=== PATIENT | female | born 1940 | race Caucasian/White ===

== ENCOUNTER → 2018-04-24 11:00 | Outpatient (CLI) | payer MEDICARE, SELFPAY | PROVIDERS: Visit Provider Student in an Organized Health Care Education/Training Program | DX: S42.292D Other displaced fracture of upper end of left humerus, subsequent encounter for fracture with routine healing (principal); W01.0XXD Fall on same level from slipping, tripping and stumbling without subsequent striking against object, subsequent encounter; I10 Essential (primary) hypertension | CPT/HCPCS: 99213 ==

== ENCOUNTER → 2018-06-19 10:37 | Outpatient (BNVA) | payer MEDICARE, SELFPAY | PROVIDERS: Visit Provider Student in an Organized Health Care Education/Training Program | DX: S42.202D Unspecified fracture of upper end of left humerus, subsequent encounter for fracture with routine healing (principal); X58.XXXD Exposure to other specified factors, subsequent encounter; M25.512 Pain in left shoulder | CPT/HCPCS: 20610; 99213; J1040 ==

== ENCOUNTER 2018-06-19 11:18 | Outpatient (CLI) | payer MEDICARE, SELFPAY ==
--- NOTE | 2018-06-19 11:16 | DI.RAD_ITS ---
SYMPTOM/DIAGNOSIS: LT HUMERUS FX LEFT SHOULDER: 06/19/18 Three views were obtained and show previously noted proximal humeral fracture which shows further evidence of healing and no gross interval change in alignment in comparison with examination of 03/15/18 allowing for differences in projection.
== END 2018-06-19 11:38 ==
PROVIDERS: Visit Provider Student in an Organized Health Care Education/Training Program
DX: S42.292D Other displaced fracture of upper end of left humerus, subsequent encounter for fracture with routine healing (principal)
CPT/HCPCS: 20610; 99213; 73030; J1040

== ENCOUNTER → 2018-07-31 10:30 | Outpatient (BNVA) | payer MEDICARE, SELFPAY | PROVIDERS: Visit Provider Student in an Organized Health Care Education/Training Program | DX: S42.202D Unspecified fracture of upper end of left humerus, subsequent encounter for fracture with routine healing (principal); W01.0XXD Fall on same level from slipping, tripping and stumbling without subsequent striking against object, subsequent encounter | CPT/HCPCS: 99213 ==

== ENCOUNTER 2018-09-25 14:19 | Outpatient (CLI) | payer MEDICARE, SELFPAY ==
--- NOTE | 2018-09-25 14:07 | DI.RAD_ITS ---
SYMPTOMS/DIAGNOSIS: FX F/U LEFT SHOULDER: Three views. Comparison is 06/19/18. There has been no change in alignment of the fracture deformity involving the proximal left humerus. No new fractures or dislocations are seen. Degenerative changes are seen at both the glenohumeral joint and the acromioclavicular joint. The soft tissues are unremarkable.
== END 2018-09-25 14:39 ==
PROVIDERS: Visit Provider Student in an Organized Health Care Education/Training Program
DX: S42.202D Unspecified fracture of upper end of left humerus, subsequent encounter for fracture with routine healing (principal); X58.XXXD Exposure to other specified factors, subsequent encounter; G89.29 Other chronic pain; M25.519 Pain in unspecified shoulder; M19.012 Primary osteoarthritis, left shoulder
CPT/HCPCS: 99213; 99242; 73030

== ENCOUNTER 2018-09-29 00:25 | Outpatient (CLI) | payer MEDICARE, SELFPAY ==
--- NOTE | 2018-09-29 14:27 | DI.MRI_ITS ---
SYMPTOMS/DIAGNOSIS: LEFT SHOULDER TENDINITIS, H/O LEFT PROXIMAL HUMERAL FX, CONTINUED WEAKNESS AND PAIN, S42.202D, ? ROTATOR CUFF TEAR MRI OF THE LEFT SHOULDER: Comparison is made with plain films dated September,. Proton density and fat-suppressed T2 axial and coronal and T1 and fat-suppressed T2 sagittal sequences were performed. There is deformity of the humeral head and humeral neck related to the prior fracture. Some marrow edema remains present around the fracture lines. There is a small amount of fluid in the subacromial- subdeltoid bursa and glenohumeral joint. There is some spurring at the tip of the acromion. The supraspinatus, infraspinatus, subscapularis and biceps tendons appear intact. There is a question of a posterior labral tear versus degeneration. There is atrophy of the rotator cuff muscles. IMPRESSION: Exam is mildly limited by patient body habitus and motion. There is no evidence of rotator cuff tear. An old fracture deformity is noted. There is muscular atrophy, presumably related to disuse. Degenerative changes versus posterior labral tear.
== END 2018-09-29 00:45 ==
PROVIDERS: Visit Provider Student in an Organized Health Care Education/Training Program
DX: M75.82 Other shoulder lesions, left shoulder (principal); M25.512 Pain in left shoulder; M62.512 Muscle wasting and atrophy, not elsewhere classified, left shoulder; S42.202D Unspecified fracture of upper end of left humerus, subsequent encounter for fracture with routine healing
CPT/HCPCS: 73221

== ENCOUNTER 2018-10-12 00:24 | Outpatient (CLI) | payer MEDICARE, SELFPAY ==
--- NOTE | 2018-10-12 07:30 | DI.RAD_ITS ---
SYMPTOM/DIAGNOSIS: LT SHOULDER PAIN, M25.512, UNSPECIFIC FX, S42.202D LEFT SHOULDER INJECTION: Fluoroscopy Time: 18.1 seconds Injection of contrast material into the left shoulder joint was carried out by Dr. Nair. Please see the procedure report for further information.
[2018-10-12] MEDS: Bupivacaine 0.5% Pres-Free 10 ML VIAL 6 ML IJ (09:12)
[2018-10-12] MEDS: Omnipaque 300 MG/ML 10 ML BTL IJ (09:13)
[2018-10-12] MEDS: methylPREDNISolone ACETATE 80 MG/ML VIAL IM (09:14)
--- NOTE | 2018-10-12 22:19 | W.PROCNOTE ---
Date of service: 10/12/18 Time of Service: 11:19 Procedure Note Date of procedure: 10/12/18 Procedure: Left Shoulder Injection Surgeon/Proceduralist/Physician: Antelmo Nair Procedure Diagnosis: Left rotator cuff tendinitis status post fracture Procedure Indications: Pat has had persistent pain of the LEFT shoulder. Noninvasive measures have been tried. To serve as both diagnostic and therapeutic, an injection under fluoroscopy was recommended. I had discussed the risks of the procedure and the patient elected to proceed. Procedure Description: Pat was greeted in the flouroscopy room. The correct side was identified and the consent was reviewed with the patient and signed. The patient was then placed in the supine position on the fluoroscopy table. The LEFT shoulder was then prepped with Chloraprep. The anterior injection starting point was identiifed by bony landmarks and fluoroscopy. The skin and soft tissue in the tract of the injection was anesthetized with 1% Lidocaine. A spinal needle was then inserted deep into the shoulder joint at the level of the recess between the glenoid and superior humeral head. A small amount of Omnipaque solution was injected to confirm intraarticular placement. Once confirmed, the shoulder was injected with 4cc of 0.5% Bupivicaine and 80mg of Depo-Medrol. A bandaid was placed on the injection site. The patient tolerated the procedure well and noted improvement in pre-injection pain.
== END 2018-10-12 00:44 ==
PROVIDERS: Visit Provider Student in an Organized Health Care Education/Training Program
DX: M25.512 Pain in left shoulder (principal); M75.82 Other shoulder lesions, left shoulder
CPT/HCPCS: 20610; 77002; J1040

== ENCOUNTER → 2018-10-23 10:37 | Outpatient (BNVA) | payer MEDICARE, SELFPAY | PROVIDERS: Visit Provider Student in an Organized Health Care Education/Training Program | DX: M25.512 Pain in left shoulder (principal); S42.202S Unspecified fracture of upper end of left humerus, sequela; Z98.890 Other specified postprocedural states; M75.82 Other shoulder lesions, left shoulder | CPT/HCPCS: 99212 ==

== ENCOUNTER 2018-11-03 03:08 | Outpatient (CLI) | payer MEDICARE, SELFPAY ==
[2018-11-03 12:49] LABS: ALT 24 U/L (12-78); AST 19 U/L (15-37); Albumin 3.7 g/dL (3.4-5.0); Alkaline Phosphatase 74 U/L (46-116); Anion Gap 9.8 mmol/L (3-11); BUN 16 mg/dL (7-18); Bilirubin, Total 0.4 mg/dL (0.2-1.0); CO2 29.2 mmol/L (21.0-32.0); CREATININE 0.75 mg/dL (0.55-1.02); Calcium 9.2 mg/dL (8.5-10.1); Chloride 104 mmol/L (98-107); Glucose 90 mg/dL (70-100); Potassium 4.4 mmol/L (3.5-5.1); Sodium 143 mmol/L (136-145); Total Protein 7.1 g/dL (6.4-8.2)
== END 2018-11-03 03:28 ==
DX: I10 Essential (primary) hypertension (principal); K22.70 Barrett's esophagus without dysplasia
CPT/HCPCS: 36415; 80053

== ENCOUNTER → 2018-12-04 12:51 | Outpatient (BNVA) | payer MEDICARE, SELFPAY | PROVIDERS: Visit Provider Student in an Organized Health Care Education/Training Program | DX: M75.82 Other shoulder lesions, left shoulder (principal); S42.202S Unspecified fracture of upper end of left humerus, sequela; X58.XXXS Exposure to other specified factors, sequela; I10 Essential (primary) hypertension | CPT/HCPCS: 99213 ==

== ENCOUNTER → 2019-01-12 09:23 | Outpatient (BNVA) | payer MEDICARE, SELFPAY | PROVIDERS: Visit Provider Student in an Organized Health Care Education/Training Program | DX: S42.202D Unspecified fracture of upper end of left humerus, subsequent encounter for fracture with routine healing (principal); X58.XXXD Exposure to other specified factors, subsequent encounter; M75.82 Other shoulder lesions, left shoulder; I10 Essential (primary) hypertension | CPT/HCPCS: 99212; 99213 ==

== ENCOUNTER 2019-06-11 11:10 | Emergency (ER) | payer MEDICARE, SELFPAY ==
[2019-06-11 11:18] VITALS: BP 154/94; PULSE 80; RESP 24; TEMP 36.3; O2SAT 100
--- NOTE | 2019-06-11 11:27 | DI.RAD_ITS ---
EXAM: XR HUMERUS RT INDICATION: direct shoulder trauma, pain, r/o fx. COMPARISON: LEFT HUMERUS from 01/01/2018 TECHNIQUE: 2D digital imaging was performed. FINDINGS: A comminuted fracture of the proximal humerus is demonstrated, the humerus is otherwise unremarkable. Please see the separate shoulder dictation for further information.
--- NOTE | 2019-06-11 11:27 | DI.RAD_ITS ---
EXAM: XR SHOULDER RT COMPLETE 2+V INDICATION: direct shoulder trauma, pain, r/o fx. COMPARISON: XR shoulder LT complete 2+V from 09/25/2018 TECHNIQUE: 2D digital imaging was performed. FINDINGS: A comminuted fracture of the proximal humerus is noted involving the surgical neck and greater tubero sity. There is no evidence of a dislocation. There is an apparent intra-articular hemorrhage.
--- NOTE | 2019-06-11 11:50 | ED.GENADUL_ITS ---
Discharge Plan Disposition Patient Disposition: HOME Condition: Stable Discharge Details Chief Complaint: Orthopedic Clinical Impression: Closed right humeral fracture Primary Care Provider: Kerrie Staples ED Provider: Manjinder Loaiza Home Meds and New Rx's Prescriptions: New tramadol 50 mg tablet 50 mg PO Q6H PRN (Reason: pain) 10 Days Qty: 30 RF: 0 acetaminophen [Mapap Extra Strength] 500 MG tablet 1,000 mg PO Q6H 5 Days Qty: 60 RF: 0 lidocaine [Lidoderm] 1 PATCH patch 1 patch Topical Q24H Qty: 4 RF: 0 ibuprofen [Motrin IB] 200 MG tablet 600 mg PO Q6H 5 Days Qty: 60 RF: 0 No Action calcium carbonate-vitamin D3 [Caltrate with Vitamin D3] 1 EACH tablet 1 ea PO DAILY RF: 0 CENTRUM SILVER TABLET 1 EACH tablet 1 ea PO DAILY RF: 0 cholecalciferol (vitamin D3) 1,000 UNIT tablet 1,000 unit PO DAILY RF: 0 clobetasol-emollient 15 GM cream 15 gm Topical BID Qty: 2 RF: 3 Emergen-C 1,000 MG powder effervescent in packet 1,000 mg PO DAILY RF: 0 [id number] serr [Osteo Bi-Flex (5-Loxin)] 1 EACH tablet 1 tab PO DAILY RF: 0 acetaminophen [Tylenol Extra Strength] 500 MG tablet 500 mg PO RF: 0 omeprazole 20 mg capsule,delayed release(DR/EC) 20 mg PO DAILY Qty: 90 RF: 3 pravastatin 20 mg tablet 20 mg PO DAILY Qty: 90 RF: 3 lisinopril 20 mg tablet 20 mg PO DAILY Qty: 90 RF: 3 hydrochlorothiazide 12.5 mg tablet 12.5 mg PO DAILY Qty: 90 RF: 3 Hold Instructions: Home Medication placed on hold at Doctor's office Discharge Instructions Instructions: Arm Fracture in Adults (ED) Additional Instructions: You have fractured your proximal humerus. Dr. Nair will be contacting you shortly. Please take the medications as directed, use the sling for pain control. If you notice any color changes in your hand or fingers, change in sensation, worsening pain please return immediately. Be very cautious while taking the pain medications as it could make you dizzy and imbalance. Make sure you always have assistance with you at home. If you notice any worsening of your symptoms, or any new symptoms such as vomiting, diarrhea, fever, chills, shortness of breath, chest pain, numbness, weakness, or fainting , please return immediately to the emergency department for reevaluation. Please follow up with your primary care provider as soon as possible for reassessment and reevaluation. As always, it was a pleasure participating in your medical care today. Referrals: Kerrie Staples, NESHA [Primary Care Provider] - Medical Decision Making This is a very pleasant 79-year-old female who presents today for evaluation of right shoulder pain. 30 minutes prior to arrival she fell and landed on her right shoulder. She came to the ER immediately for assessment. Physical exam demonstrates mild bruising and deformity of the right proximal humerus, her exam is otherwise neurovascularly intact including two-point discrimination, normal movement of the fingers and hands. Concern differential is highest for proximal humerus fracture. We will get x-ray, treat pain, placed in sling and reassess. 3 PM X-ray results demonstrate notable comminuted depressed proximal humerus fracture, difficult to tell whether or not it is dislocated. At this time radiology agrees with the read but also feels that it is not dislocated. Patient has specifically asked that we contact Dr. Nair for evaluation as he is one who normally cares for her multiple orthopedic issues. We did contact yossi Nair, and he does request CT scan of the right shoulder. CT scan was ordered and demonstrates that it is still in the shoulder socket, and not dislocated. Notable amount of fluid. On reassessment just before this the patient was noted to have subjective significant decrease in sensation in her hand and arm. Exam was difficult secondary to patient's pain. Dr. Nair did review the CT scan, and came and assessed the patient himself. He feels that the current symptomatology is secondary to mild pressure on the brachial plexus, but not secondary to significant nerve damage. He recommends continued sling, pain management, and close and prompt outpatient follow-up with himself. Patient was given some IV morphine, she tolerated this well. We will do tramadol for home use, recommend continued NSAIDs. We did get the patient up and ambulated her throughout the ED prior to discharge and she did well with this. She does have family at home will help take care of her. We discussed red flags which to return. I have extensively reviewed the treatment plan and discharge instructions with the patient and their family. I have addressed all patient concerns at this time. The patient and family was made aware of what symptoms to monitor for that would warrant a return to the emergency department. Discussed the plan with the patient and family, they demonstrate verbal understanding and agreement with our assessment and plan at this time. FINDINGS: A comminuted fracture of the proximal humerus is noted involving the surgical neck and greater tuberosity. There is no evidence of a dislocation. There is an apparent intra-articular hemorrhage. FINDINGS: A comminuted fracture of the proximal humerus is noted. It fractures through the surgical neck and humeral head. There is no evidence of a dislocation. A fat- fluid level is noted in the joint. HPI General Date/Time Provider Initiated Documentation: 06/11/19 11:24 . HPI Narrative: This is a 79-year-old female with a past medical history of tendinitis in the left rotator cuff, high cholesterol, previous fracture of the left humerus, who presents today for evaluation of pain in her right shoulder. The patient states that 30 minutes prior to arrival she was standing, her shoe slipped, causing her to trip and landing on her right shoulder. She did not hit her head, she had no loss of consciousness. She did have significant pain in her right shoulder immediately after that was brought to the ER for evaluation. Pain is made worse with movement and palpation. No radiation to the forearm, elbow or hand. No chest pain. No head or neck pain. She is not on any blood thinners. She recently took 1 g of Tylenol about 2 hours before arrival. Patient denies any other complaints at this time. No other modifying factors. Related Data Home Medications Medication Instructions Recorded Confirmed Centrum Silver Tablet 1 ea PO DAILY 11/23/12 06/11/19 calcium carbonate-vitamin D3 1 ea PO DAILY 11/23/12 06/11/19 [Caltrate with Vitamin D3] cholecalciferol (vitamin D3) 1,000 unit PO DAILY 05/13/16 06/11/19 clobetasol-emollient 15 gm TOPICAL BID #2 tube 10/04/16 06/11/19 Emergen-C 1,000 mg PO DAILY 11/02/17 06/11/19 [id number] serr 1 tab PO DAILY 11/02/17 06/11/19 [Osteo Bi-Flex (5-Loxin)] acetaminophen [Tylenol Extra 500 mg PO 01/09/18 01/12/19 Strength] lisinopril 20 mg PO DAILY #90 tab-cap 08/29/18 06/11/19 omeprazole 20 mg capsule,delayed 20 mg PO DAILY #90 tab-cap 08/29/18 06/11/19 release pravastatin 20 mg PO DAILY #90 tab-cap 08/29/18 06/11/19 hydrochlorothiazide 12.5 mg tablet 12.5 mg PO DAILY #90 tab-cap 09/25/18 06/11/19 acetaminophen [Mapap Extra 1,000 mg PO Q6H 5 Days #60 tab 06/11/19 Strength] ibuprofen [Motrin Ib] 600 mg PO Q6H 5 Days #60 tab 06/11/19 lidocaine [Lidoderm] 1 patch TOPICAL Q24H #4 patch 06/11/19 tramadol 50 mg PO Q6H PRN 10 Days #30 tab 06/11/19 Previous Rx's Medication Instructions Recorded lisinopril 20 mg PO DAILY #90 tab-cap 08/29/18 omeprazole 20 mg capsule,delayed 20 mg PO DAILY #90 tab-cap 08/29/18 release pravastatin 20 mg PO DAILY #90 tab-cap 08/29/18 hydrochlorothiazide 12.5 mg tablet 12.5 mg PO DAILY #90 tab-cap 09/25/18 acetaminophen [Mapap Extra 1,000 mg PO Q6H 5 Days #60 tab 06/11/19 Strength] ibuprofen [Motrin Ib] 600 mg PO Q6H 5 Days #60 tab 06/11/19 lidocaine [Lidoderm] 1 patch TOPICAL Q24H #4 patch 06/11/19 tramadol 50 mg PO Q6H PRN 10 Days #30 tab 06/11/19 Allergies Allergy/AdvReac Type Severity Reaction Status Date / Time oxycodone HCl [From Percocet] AdvReac Intermediate GI, Verified 06/11/19 11:22 Headache, Nausea codeine AdvReac Mild Upset Verified 06/11/19 11:22 Stomach General Stated Complaint: Orthopedic REBA: 3 Review of Systems Review of Systems ROS Unobtainable: All systems reviewed & are unremarkable except as noted in HPI and below PFSH Medical History (Updated 11/10/18 @ 14:17 by Kerrie Staples NP) At risk for inadequate pain control (Chronic 01/11/18) Gordon's esophagus (Chronic) NEG H. PYLORI egd 2016 Bilateral low back pain without sciatica (Chronic 05/13/16) Essential hypertension (Chronic 10/02/13) Family history of colon cancer (Chronic 02/05/10) father Fracture of proximal end of left humerus (Chronic) Hiatal hernia (Chronic) Hyperlipidemia (Chronic) Intestinal metaplasia of gastric mucosa (Chronic 02/14/14) EGD 02/05/14 FU 3 YEARS Lichen planus (Chronic) on rt [place] Osteopenia (Chronic) Right lower quadrant pain (Chronic 05/27/16) Rosacea (Chronic) Skin irritation (Chronic 01/18/18) Skin tag (Chronic 05/27/16) Spondylosis of lumbar region without myelopathy or radiculopathy (Chronic) Tendinitis of left rotator cuff (Chronic) Traumatic closed displaced fracture of proximal end of left humerus with routine healing (Chronic 01/03/18) 01/03/18 Varicose veins of lower extremity (Chronic) Vitiligo (Chronic) Surgical History Appendectomy no date given BIOPSY (02/05/14) DISTAL ESOPHAGUS BX Cholecystectomy (~10/2001) Colonoscopy - MAC (~01/2014) EGD - IV Sedation (02/15/17) Endoscopy 02/15/17 [facility] Finger Surgery CYST REMOVAL;DR. YEPEZ; 03/17/17 Ligation of fallopian tube Medial Branch Block 10/12/16; PAIN CLINIC 10/12/16 Social History (Updated 11/15/18 @ 10:08 by Juan Jose Mcintyre) Smoking/Tobacco Use Status: Never Alcohol Intake: never Drug use: Never Substance use type: does not use Caregiver/Support person: No Household members: none Housing: apartment Pets and animals: No Sexually active: No Do you think of yourself as: straight/heterosexual Current gender identity: female What is your relationship status?: How often do you talk on the phone with friends or family?: three or more times per week How often do you get together with friends or relatives?: three or more times per week How often do you attend adventist or worship services?: decline to answer Do you belong to any clubs or organized social groups?: no Panel score (0-1 are the most socially isolated patients): 1 What type of physical activity do you participate in: other Duration: 15-30 minutes/day Frequency: 3-4 times per week Chloe/Yazidi: Mormonism Special chloe needs: No Do you feel safe in your relationship?: Yes Exam Narrative Exam Narrative: 1.Const: Well-nourished, Well-developed, appearing stated age 2.Eyes: PERRL, no conjunctival injection, and symmetrical lids. 3.ENT: Atraumatic external nose and ears. Moist MM. Neck: Symmetric, trachea midline, No thyromegaly. There is no evidence of raccoon eyes, strauss sign, CSF rhinorrhea, mastoid tenderness, cranial crepitus, hemotympanum, exophthalmos, or hyphema. Patient demonstrates intact dentition with no signs of tooth avulsion or fracture, no signs of jaw deformity, no evidence of a LeFort's fracture, with an intact palate, nose and orbital region. There is no evidence of a nasal septal hematoma. No proptosis. Jaw closes symmetrically. Airway is clear. 4.CVS: +S1/S2, No murmurs or gallops. Peripheral pulses 2+ and equal in all extremities. Brisk capillary refill in all extremities. 5.RESP: Unlabored respiratory effort. Clear to auscultation bilaterally. No wheezes rales or rhonchi 6.GI: Soft, Nontender/Nondistended, No hepatosplenomegaly. No guarding or rebound. 7.MSK: Normocephalic, no midline cervical spine tenderness. No tenderness over the right clavicle. Mild to moderate tenderness over the proximal humerus and right shoulder. No pain in the elbow or forearm. Good supervising nurse strength bilaterally, normal capillary refill throughout, +2 radial pulses bilaterally. Normal neurovascular exam. Significant and severe pain with any movement of the right shoulder, mild deformity of the proximal humerus. 8.Skin: Warm, Dry. No rashes or lesions. 9.Neuro: assistant health educator II-XII grossly intact. Sensation grossly intact, no focal neurologic deficits. 10.Psych: (AAO) x3. Appropriate mood and affect Course Vital Signs Vital signs: Vital Signs Temperature 36.3 C L 06/11/19 11:18 Pulse 80 06/11/19 11:18 Respiratory Rate 06/11/19 11:18 Blood Pressure 154/94 H 06/11/19 11:18 Pulse Oximetry 100 06/11/19 11:18 Temperature 36.3 C L 06/11/19 11:18 Temperature Source Skin 06/11/19 11:18 Pulse 80 06/11/19 11:18 Respiratory Rate 06/11/19 11:18 Blood Pressure 154/94 H 06/11/19 11:18 Blood Pressure Position Sitting 06/11/19 11:18 Pulse Oximetry 100 06/11/19 11:18 Oxygen Delivery Method Room Air 06/11/19 11:18 Oxygen Flow Rate 0 06/11/19 11:18
[2019-06-11] MEDS: Ketorolac 15 MG/ML VIAL IM (12:01)
[2019-06-11 12:42] LABS: Abs Immature Grans 0.01 k/cumm (0.0-0.09); Absolute Basophil Count 0.03 k/cumm (0.0-0.2); Absolute Eosinophil Count 0.06 k/cumm (0.0-0.7); Absolute Lymphocyte Count 1.44 k/cumm (1.2-3.4); Absolute Neutrophil Count 5.23 k/cumm (1.2-6.7); Basophils % 0.4; Eosinophils % 0.8; HCT 41.8 % (36.0-46.0); HGB 14.2 g/dL (12.0-15.5); Immature Grans % 0.1; Lymphocytes % 19.5; Mean Corpuscular Hemoglobin 29.2 pg (27.0-33.0); Mean Platelet Volume 10.1 fL (8.0-11.0); Monocytes % 8.1; Neutrophils % 71.1; Platelet Count 258 x1000/uL (130-400); RBC 4.86 m/cumm (4.00-5.20); RBC Distribution Width 14.5 % (11.7-14.6); White Blood Cell Count 7.37 k/cumm (4.4-10.8)
--- NOTE | 2019-06-11 12:44 | DI.CT_ITS ---
EXAM: CT UPPER EXTREMITY RT WO CLINICAL HISTORY: known fracture, ortho request. COMPARISON: No exams were available for comparison FINDINGS: A comminuted fracture of the proximal humerus is noted. It fractures through the surgical neck and hu meral head. There is no evidence of a dislocation. A fat-fluid level is noted in the joint.
[2019-06-11 12:48] LABS: Anion Gap 12.7 mmol/L (3-11); BUN 28 mg/dL (7-18); CO2 23.3 mmol/L (21.0-32.0); CREATININE 0.85 mg/dL (0.55-1.02); Calcium 9.3 mg/dL (8.5-10.1); Chloride 100 mmol/L (98-107); Glucose 134 mg/dL (70-100); Potassium 3.6 mmol/L (3.5-5.1); Sodium 136 mmol/L (136-145)
[2019-06-11 12:59] LABS: PTT Activated 24.1 sec (21.0-31.4); Prothrombin Time 10.4 sec (9.3-11.0)
[2019-06-11] MEDS: HYDROmorphone 2 MG/ML VIAL 1 MG IVP ×2 (13:39→14:18)
[2019-06-11] MEDS: Ondansetron 4 MG/2 ML VIAL IVP (13:45)
[2019-06-11] MEDS: Normal Saline Flush 10 ML SYR (14:20)
--- NOTE | 2019-06-11 14:52 | NUR.NOTE ---
ambulated pt through dept pt nervous but did fine states has sister who can come stay with her opal MCNALLY aware Nursing Note:
[2019-06-11] MEDS: Lidocaine 5% Patch 1 PATCH TP (15:33)
[2019-06-11 15:52] VITALS: BP 154/94; PULSE 80; RESP 24; TEMP 36.3; O2SAT 100
== END 2019-06-11 15:46 | disposition home or self-care (01) ==
PROVIDERS: Emergency Provider Student in an Organized Health Care Education/Training Program
DX: S42.294A Other nondisplaced fracture of upper end of right humerus, initial encounter for closed fracture (principal); W01.0XXA Fall on same level from slipping, tripping and stumbling without subsequent striking against object, initial encounter; I10 Essential (primary) hypertension
CPT/HCPCS: 80048; 86850; 86900; 86901; 96374; 96375; 99284; 73030; 73060; 73200; 85025; 85610; 85730; J1885; J2405; L3650

== ENCOUNTER 2019-06-20 10:34 | Outpatient (CLI) | payer MEDICARE, SELFPAY ==
[2019-06-20 11:09] LABS: Abs Immature Grans 0.01 k/cumm (0.0-0.09); Absolute Basophil Count 0.04 k/cumm (0.0-0.2); Absolute Eosinophil Count 0.09 k/cumm (0.0-0.7); Absolute Lymphocyte Count 1.32 k/cumm (1.2-3.4); Absolute Monocyte Count 0.57 k/cumm (0.11-0.7); Absolute Neutrophil Count 4.42 k/cumm (1.2-6.7); Basophils % 0.6; Eosinophils % 1.4; HCT 35.3 % (36.0-46.0); HGB 11.7 g/dL (12.0-15.5); Immature Grans % 0.2; Lymphocytes % 20.5; Mean Corp. HGB Concentration 33.1 g/dL (32.0-36.0); Mean Corpuscular Hemoglobin 29.3 pg (27.0-33.0); Mean Corpuscular Volume 88.5 fL (80-95); Mean Platelet Volume 9.4 fL (8.0-11.0); Monocytes % 8.8; Neutrophils % 68.5; Platelet Count 268 x1000/uL (130-400); RBC 3.99 m/cumm (4.00-5.20); RBC Distribution Width 13.9 % (11.7-14.6); White Blood Cell Count 6.45 k/cumm (4.4-10.8)
== END 2019-06-20 10:54 ==
PROVIDERS: Visit Provider Student in an Organized Health Care Education/Training Program
DX: S42.291A Other displaced fracture of upper end of right humerus, initial encounter for closed fracture (principal); I10 Essential (primary) hypertension; E78.5 Hyperlipidemia, unspecified; E66.9 Obesity, unspecified; Z01.818 Encounter for other preprocedural examination; Z01.812 Encounter for preprocedural laboratory examination
CPT/HCPCS: 36415; 86850; 86900; 86901; 99215; 73030; 85025

== ENCOUNTER 2019-06-20 10:50 | Outpatient (CLI) | payer MEDICARE, SELFPAY ==
--- NOTE | 2019-06-20 09:52 | DI.RAD_ITS ---
EXAM: XR SHOULDER RT COMPLETE 2+V INDICATION: fx R humerus. COMPARISON: XR SHOULDER RT COMPLETE 2+V from 06/11/2019 TECHNIQUE: 2D digital imaging was performed. FINDINGS: There is again seen a comminuted fracture involving the proximal right humerus. There has been no ch enoch in alignment of the fracture compared to the prior examination. The alignment of the humeral he ad with the glenoid appears stable. No new fracture or dislocation is present.
== END 2019-06-20 11:10 ==
PROVIDERS: Visit Provider Student in an Organized Health Care Education/Training Program
DX: S42.291A Other displaced fracture of upper end of right humerus, initial encounter for closed fracture (principal); W01.0XXA Fall on same level from slipping, tripping and stumbling without subsequent striking against object, initial encounter
CPT/HCPCS: 99204; 99215; 73030

== ENCOUNTER 2019-06-21 09:09 | Inpatient (IN) | payer MEDICARE, SELFPAY ==
[2019-06-21] VITALS (9 sets, daily range): BP systolic 117–131; BP diastolic 57–73; PULSE 66–92; RESP 15–18; TEMP 35.8–37.2; O2SAT 89–97
[2019-06-21] MEDS: Lactated Ringers 1,000 ML 100 ML IV ×3 (10:15→22:45)
[2019-06-21] MEDS: Bupivacaine 0.5% Pres-Free 30 ML VIAL ×2 (12:30→16:05)
[2019-06-21] MEDS: Bupivacaine LIPOSOME/PF 133 MG/10 ML VIAL IJ (12:30)
[2019-06-21] MEDS: ceFAZolin 3,000 MG in Normal Saline 100 ML 200 MG IVPB (13:20)
--- NOTE | 2019-06-21 17:05 | W.PM.OP ---
Date of service: 06/21/19 Time of Service: 17:05 Operative Note Operative Note DATE OF PROCEDURE: 06/21/19 PRE-OP DIAGNOSIS: 1. Right shoulder complex proximal humerus fracture 4 parts with head split 2. Incarcerated right long head of the biceps tendon POST-OP DIAGNOSIS: same PROCEDURE: 1. Right shoulder reverse total shoulder arthroplasty 2. Open biceps tenodesis 3. Bone grafting autograft SURGEON: Peter Landeros ASSISTING SURGEON: Antelmo Nair HOSPICE NURSE PRACTITIONER: Mikala Randolph ANESTHESIA: GETA and regional ESTIMATED BLOOD LOSS: 150 COMPLICATIONS: None Patient was transported to: PACU Patient's condition: stable Implants: Arthrex universal glenoid central screw 15 mm Arthrex universal glenoid baseplate size small Arthrex universal glenoid peripheral locking screw 24 mm x 2 Arthrex universe reverse glenosphere size 36 +4 lateralized Arthrex universe reverse suture cup size 36 neutral Arthrex universe reverse humeral stem 135 degrees size 6 Arthrex universe reverse spacer size 36 +9 mm Arthrex universe reverse humeral insert size small +3 mm Indications: See history and physical done in office for details Findings: Severely comminuted and displaced right proximal humerus fracture with both the lesser and greater tuberosities split off of a large articular surface humeral head piece that was inferior subluxated towards the axilla. Residual humeral shaft with nondisplaced fracture line running a few centimeters distal to the calcar. Incarcerated long head of the biceps tendon in and around these fracture fragments with tearing and inflammation. Largely intact subscapularis and infraspinatus tendons to their respective tuberosities with supraspinatus partial tearing no more than 50% of the footprint of the greater tuberosity. Procedure Description: The patient was taken to the operating room and placed upon the operating room table. The correct patient, side of the procedure, and procedure were all verified prior to induction of general anesthesia. The patient was positioned in the beachchair position with all bony prominences well-padded. 3 g of preoperative cefazolin 1 g of TXA were administered. The patient's right upper extremity and shoulder were prepped and draped in the usual sterile fashion for shoulder arthroplasty. The standard deltopectoral approach was taken down to the proximal humerus fracture site. Care was taken to preserve and mobilize the cephalic vein laterally. Careful hemostasis was achieved inferiorly. There was significant comminution and displacement of the fracture fragments. We identified anatomy based on the long head of the biceps tendon which was freed up from between the lesser tuberosity and head split fracture fragments. The upper 0.5 cm of the pectoralis major tendon was released and an in situ open long head of the biceps tenodesis was performed using #2 FiberWire. The remainder of the long head of the biceps tendon was used to identify the rotator interval and then amputated. The lesser tuberosity was mobilized using a Wagner and the subscapularis tendon tagged with #2 FiberWire. The greater tuberosity was similarly mobilized and the supraspinatus infraspinatus tagged with #2 FiberWire. At this point traction, a Wagner, and pointed clamps were used to mobilize and deliver the large humeral head articular surface fracture fragment. This was brought to the back table for later use as bone grafting. A Rongeour was used to clean up the humeral shaft fracture line and identify stable bone. Blunt dissection was used to free adhesions between the deltoid and the superior rotator cuff. Anterior and posterior glenoid retractors were then placed to gain exposure of the glenoid, which was facilitated by the significantly missing proximal humeral bone. A Wagner was used to remove cartilage from the glenoid. Bovie cautery was used to remove labral remnant circumferentially around the glenoid except for near the 6 o'clock position where the labrum was carefully bluntly dissected inferiorly off the glenoid. Blunt digital dissection along the anterior scapular neck was used to identify the correct trajectory for central guidewire. The center?center location was identified in the glenoid and then the guidewire was moved slightly inferiorly and with an inferior tilt and directed down the scapular neck and slightly anterior for bicortical fixation. This guidewire was palpated as it exited the anterior scapula and measured to be just over 15 mm. The guidewire location was inspected and found to be appropriate. Next a sequence of reamers was used to decorticate, medialize, and prepare for the baseplate. At first the baseplate did not sit all the way flush superiorly so it was removed and we repeated the reaming sequence to remove another millimeter or so of bone. The baseplate then set flush on glenoid bone with proper position inferiorly and inferior tilt. The central compression screw was placed in the baseplate was found to have solid fixation. Next the glenosphere was impacted to the baseplate and tested and found to be stable. Attention was then turned to preparing the proximal humerus. We started with a size 5 broach and set the version at about 30 degrees. We carefully broached up to a size 6 stem which was found to sit high so he returned to a size 5 broach and then again to a 6 and it sat in a good position relative to the remaining medial calcar. We assembled the trial components, reduced the shoulder, and tested stability. Ball Ground stability was found with a +12 mm total construct. This demonstrated excellent stability with good tension on the conjoined tendon and deltoid. The trial components were removed from the proximal humerus. To drill tunnels were placed in the bicipital groove and loaded with 2 sets of #2 FiberWire. Final size 6 humeral stem was impacted and then removed as the previously identified nondisplaced calcar fracture line displaced about 1 mm. We then placed fiber tape cerclage about the proximal humerus shaft including the medial calcar fracture line and appropriately tensioned to prevent fracture propagation. Humeral stem was then impacted into the proximal humerus with good fit, height and rotational stability. We then trialed building again up to +12 and found to have excellent stability. The final spacer and humeral insert with an assembled to the humeral stem. The shoulder was reduced and stability was tested one last time and found to be excellent Chlorhexidine lavage was used to copiously irrigate all deep and superficial tissue layers as well as the implanted components. 1 g of vancomycin powder was distributed about the deep wound. The previously tagged lesser and greater tuberosities were reduced to their respective positions about the humeral stem and humeral shaft. Residual gaps around the implant and between the tuberosities was bone grafted using autograft cancellus bone obtained from the removed humeral head. All bony defects were nicely filled. Using a series of Sarabjit-Jaskaran stitches they were repaired back to the shaft and to each other covering the implant. After complete tuberosity and rotator cuff repair the arm was taken through range of motion and the entire cuff moved as a unit with no displacement. The wound was copiously irrigated. The deltopectoral interval was loosely approximated using 0 Vicryl. Subcutaneous tissue was closed using 2-0 Monocryl in a buried interrupted fashion. The skin was closed using 3-0 Monocryl in a buried subcuticular fashion. Skin glue was applied to the incision. A Mepilex bandage was placed over the wound. The patient's extremity was immobilized in a sling. The patient awoke from anesthesia without complication and was taken to the recovery room in stable condition.
[2019-06-21] MEDS: fentaNYL 100 MCG/2 ML VIAL IVP (17:30)
--- NOTE | 2019-06-21 17:32 | DI.RAD_ITS ---
EXAM: XR SHOULDER RT COMPLETE 2+V INDICATION: Postop. COMPARISON: XR SHOULDER RT COMPLETE 2+V from 06/20/2019 TECHNIQUE: 2D digital imaging was performed. FINDINGS: Three views were obtained. There is a reverse shoulder prosthesis in position. The components appea r well seated. There does appear to be a transverse fracture of the proximal most portion of the hum erus. Appropriate follow-up films requested IMPRESSION:
--- NOTE | 2019-06-21 18:10 | W.PM.PROGNOT ---
Date of Service Date of service: 06/21/19 Time of Service: 18:10 Assessment and Plan Assessment and plan (1) Closed fracture of proximal end of right humerus: Status: Acute Assessment and plan: 79-year-old female postop day #0 status post right shoulder reverse total shoulder arthroplasty for complex proximal humerus fracture, doing well -Nonweightbearing right upper extremity. Sling for comfort or may rest on pillows at side. No active right shoulder range of motion. -Multimodal pain control -Physical therapy for gentle passive range of motion from 0 to 30 degrees of external rotation and 0 to 90 degrees of forward flexion -81 mg aspirin daily for DVT prophylaxis All questions answered Agree and understand treatment plan Will call if any changes or concerns Qualifiers: Encounter type: initial encounter Fracture morphology: other fracture Fracture alignment: displaced Qualified Code(s): S42.291A - Other displaced fracture of upper end of right humerus, initial encounter for closed fracture Subjective Subjective Interval history since last seen: Resting comfortably no complaints in recovery room Exam Narrative Exam Narrative: Right shoulder dressing clean dry intact. 2+ radial pulse. Sensation and motor returning throughout right upper extremity. All compartments soft. Objective Objective Clinical Data: Vital Signs Temperature 36.8 C 06/21/19 17:35 Pulse 78 06/21/19 17:35 Pulse Rhythm Regular 06/21/19 09:32 Respiratory Rate 16 06/21/19 17:35 Respiratory Effort Non-Labored 06/21/19 09:32 Respiratory Depth Normal 06/21/19 09:32 Respiratory Pattern Normal 06/21/19 09:32 Blood Pressure 129/63 06/21/19 17:35 Pulse Oximetry 95 06/21/19 17:35 Respiratory End-tidal CO2 30 06/21/19 17:35 Oxygen Delivery Method Nasal Cannula 06/21/19 17:35 Oxygen Flow Rate 2 06/21/19 17:35 Pain Level 5 06/21/19 17:35 Intake & Output 06/20/19 06/21/19 06/21/19 23:59 11:59 23:59 Intake Total 1230 / 1230 Output Total 150 / 150 Balance 1080 / 1080 Weight 81 kg Intake: IV 1210 / 1210 Oral 20 / 20 Output: Estimated Blood Loss 150 / 150 Other: Emesis Description None
[2019-06-21] MEDS: ceFAZolin 1 GM/50 ML BAG IVPB (19:57)
[2019-06-21] MEDS: Normal Saline Flush 10 ML SYR IV (19:57)
[2019-06-21] MEDS: Celecoxib 100 MG CAP PO (19:58)
[2019-06-21] MEDS: Pravastatin 20 MG TAB PO (19:58)
[2019-06-21] MEDS: Acetaminophen 500 MG TAB 1000 MG PO (19:58)
[2019-06-22] MEDS: ceFAZolin 1 GM/50 ML BAG IVPB ×2 (04:15→12:32)
[2019-06-22 05:30] VITALS: BP 122/66; PULSE 86; RESP 18; TEMP 37.1; O2SAT 96
[2019-06-22 07:15] VITALS: BP 122/77; PULSE 81; RESP 18; TEMP 36.9; O2SAT 91
[2019-06-22] MEDS: Cholecalciferol (Vitamin D3) 1,000 UNIT TAB 1000 UNITS PO (07:58)
[2019-06-22] MEDS: Omeprazole 20 MG CAPCR PO (07:58)
[2019-06-22] MEDS: Multivitamin TAB 1 TAB PO (07:58)
[2019-06-22] MEDS: Celecoxib 100 MG CAP PO (07:58)
[2019-06-22] MEDS: hydroCHLOROthiazide 12.5 MG TAB PO (07:58)
[2019-06-22] MEDS: Lisinopril 20 MG TAB PO (07:58)
[2019-06-22] MEDS: Calcium 600mg/Vit D 200U TAB 1 TAB PO (07:58)
[2019-06-22] MEDS: Acetaminophen 500 MG TAB 1000 MG PO ×2 (07:59→14:28)
--- NOTE | 2019-06-22 10:43 | W.PM.DS.N ---
DS: Diagnosis Discharge Diagnosis (1) Closed fracture of proximal end of right humerus: Status: Acute Discharge Plan Disposition Patient Disposition: HOME Condition: Stable Discharge Details Reason For Visit: (R) PROXIMAL HUMERUS FX Admit Date/Time: 06/21/19 09:09 Admit Provider: Peter Landeros Attending Provider: Peter Landeros Primary Care Provider: Kerrie Staples Hospital Course Hospital Course: Uncomplicated Home Meds and New Rx's Prescriptions: New tramadol 50 mg Tablet 50 mg PO Q8H PRN PRN (Reason: pain, severe) Qty: 22 RF: 0 naproxen 250 mg tablet 250 mg PO BID PRN (Reason: pain) Qty: 60 RF: 0 aspirin 81 mg tablet,delayed release (DR/EC) 81 mg PO DAILY Qty: 30 RF: 0 ondansetron 4 mg tablet,disintegrating 4 mg PO Q6H PRN (Reason: nausea and vomiting) Qty: 5 RF: 0 Continued calcium carbonate-vitamin D3 [Caltrate with Vitamin D3] 1 EACH tablet 1 ea PO DAILY RF: 0 CENTRUM SILVER TABLET 1 EACH tablet 1 ea PO DAILY RF: 0 cholecalciferol (vitamin D3) 1,000 UNIT tablet 1,000 unit PO DAILY RF: 0 clobetasol-emollient 15 GM cream 15 gm Topical BID Qty: 2 RF: 3 Emergen-C 1,000 MG powder effervescent in packet 1,000 mg PO DAILY RF: 0 [id number] [Osteo Bi-Flex (5-Loxin)] 1 EACH tablet 1 tab PO DAILY RF: 0 omeprazole 20 mg capsule,delayed release(DR/EC) 20 mg PO DAILY Qty: 90 RF: 3 pravastatin 20 mg tablet 20 mg PO DAILY Qty: 90 RF: 3 lisinopril 20 mg tablet 20 mg PO DAILY Qty: 90 RF: 3 hydrochlorothiazide 12.5 mg tablet 12.5 mg PO DAILY Qty: 90 RF: 3 Hold Instructions: Home Medication placed on hold at Doctor's office lidocaine [Lidoderm] 1 PATCH patch 1 patch Topical Q24H Qty: 4 RF: 0 acetaminophen [Tylenol Extra Strength] 500 mg Tablet 1,000 mg PO Q4H PRNRF: 0 ibuprofen 600 mg Tablet 600 mg PO TID RF: 0 Discharge Instructions Additional Instructions: Keep bandage clean and dry until follow-up. Do not shower or get wet. Use sling or pillows to elevate arm at side. Sling may be removed at home as long as arm stays safe near side of body. No active shoulder motion. Do not reach or lift. Encourage daily range of motion to the elbow, wrist, hand and all fingers. Follow-up with Dr. Landeros in 10 days. Plan to start physical therapy after that visit. Stand Alone Forms: DSU Post op Instructions, Nursing Discharge Form Referrals: Peter Landeros MD [ [facility] STAFF PHYSICIAN] - 07/04/19 1:00 pm Activity:: Nonweightbearing right upper extremity Equipment/Supplies:: Sling Diet:: As Tolerated Discharge Orders Discharge Orders: Discharge Order (Routine); Ordered 06/22/19 Ordered By: Peter Landeros DS: Summary Status at Discharge Functional status at discharge: independent ambulation Overall status at discharge: other (Status post right shoulder reverse arthroplasty replacement for fracture) Mental Status: mental status grossly normal Speech and Movement: speech and movement normal Mood: congruent mood Affect: normal affect Exam Narrative Exam Narrative: Patient comfortable awake and alert. Right shoulder dressing clean dry intact. 2+ radial pulse. Sensation and motor returning throughout right upper extremity. All compartments soft. Psych Mental Status: mental status grossly normal Speech and Movement: speech and movement normal Mood: congruent mood Affect: normal affect DS: Data Vitals/I&O Vitals and I&O: Vital Signs Temperature 36.9 C 06/22/19 07:15 Temperature Source Tympanic 06/22/19 07:15 Pulse 81 06/22/19 07:15 Pulse Rhythm Regular 06/22/19 05:30 Respiratory Rate 18 06/22/19 07:15 Respiratory Effort 06/22/19 05:30 Respiratory Depth Normal 06/22/19 05:30 Respiratory Pattern Normal 06/22/19 05:30 Blood Pressure 122/77 06/22/19 07:15 Pulse Oximetry 91 L 06/22/19 07:15 Respiratory End-tidal CO2 30 06/21/19 17:35 Oxygen Delivery Method Room Air 06/22/19 07:15 Oxygen Flow Rate 0 06/22/19 07:15 Pain Level 5 06/22/19 07:59 Intake & Output 06/21/19 06/21/19 06/22/19 11:59 23:59 11:59 Intake Total 2533.334 / 2533.334 240 / 240 Output Total 600 / 600 400 / 400 Balance 1933.334 / 1932.334 -160 / -160 Weight 81 kg Intake: IV 2513.334 / 2513.334 Oral 20 / 20 240 / 240 Output: Urine 450 / 450 400 / 400 Estimated Blood Loss 150 / 150 Other: Urine Color Straw Yellow Urine Appearance Clear Clear Urine Odor Normal Emesis Description None Voiding Methods Bedside Commode Toilet [facility] Social History Smoking/Tobacco Use Status: Never Alcohol Intake: never Drug use: Never Substance use type: does not use Caregiver/Support person: No Household members: none Housing: apartment Pets and animals: No Sexually active: No Do you think of yourself as: straight/heterosexual Current gender identity: female What is your relationship status?: How often do you talk on the phone with friends or family?: three or more times per week How often do you get together with friends or relatives?: three or more times per week How often do you attend religion or mandaeism services?: decline to answer Do you belong to any clubs or organized social groups?: no Panel score (0-1 are the most socially isolated patients): 1 What type of physical activity do you participate in: other Duration: 15-30 minutes/day Frequency: 3-4 times per week Chloe/Jew: Cheondoism Special chloe needs: No Do you feel safe in your relationship?: Yes
[2019-06-22] MEDS: Aspirin E.C. 81 MG TABEC PO (10:45)
[2019-06-22 11:00] VITALS: BP 122/77; PULSE 81; RESP 16; TEMP 37.4; O2SAT 96
[2019-06-22] MEDS: traMADol 50 MG TAB PO (11:31)
--- NOTE | 2019-06-22 12:00 | PT.INIE ---
Date of service: 06/22/19 Time of Service: 09:01 PT Notes Inpatient Physical Therapy Evaluation Date: 06/22/2019 Referring Doctor: Peter Landeros MD PT Orders: PT CONSULT: S/P Ortho Surgery. Passive only ROM 0-30 ER, FF to 90 degrees (gentle) Precautions: Fall. Standard. NWB on RUE. Patient Profile/Admitting Diagnosis: Patient is a 79-year-old female with right shoulder complex proximal humerus fracture 4 parts with head split and an incarcerated right long head of the biceps tendon sustained from a fall 11 days ago. He is s/p R reverse shoulder arthroplasty with open biceps tenodesis and bone grafting autograft on postoperative day 1. PMHX: Medical History At risk for inadequate pain control (Chronic 01/11/18) Gordon's esophagus (Chronic) NEG H. PYLORI egd 2016 Bilateral low back pain without sciatica (Chronic 05/13/16) Essential hypertension (Chronic 10/02/13) Family history of colon cancer (Chronic 02/05/10) father Fracture of proximal end of left humerus (Chronic) Hiatal hernia (Chronic) History of postoperative nausea and vomiting (Acute) Hyperlipidemia (Chronic) Intestinal metaplasia of gastric mucosa (Chronic 02/14/14) EGD 02/05/14 FU 3 YEARS Lichen planus (Chronic) on rt bolton Osteopenia (Chronic) Right lower quadrant pain (Chronic 05/27/16) Rosacea (Chronic) Skin irritation (Chronic 01/18/18) Skin tag (Chronic 05/27/16) Spondylosis of lumbar region without myelopathy or radiculopathy (Chronic) Tendinitis of left rotator cuff (Chronic) Traumatic closed displaced fracture of proximal end of left humerus with routine healing (Chronic 01/03/18) 01/03/18 Varicose veins of lower extremity (Chronic) Vitiligo (Chronic) Surgical History Appendectomy no date given BIOPSY (02/05/14) DISTAL ESOPHAGUS BX Cholecystectomy (~10/2001) Colonoscopy - MAC (~01/2014) EGD - IV Sedation (02/15/17) Endoscopy 02/15/17 [facility] Finger Surgery CYST REMOVAL;DR. YEPEZ; 03/17/17 History of Mike fundoplication (Chronic) Ligation of fallopian tube Medial Branch Block 10/12/16; PAIN CLINIC 10/12/16 Social History/Home Situation: Patient lives alone in a one-story apartment with no steps to enter. She is independent with all aspects of ADLs without the need for an assistive ambulatory device nor adaptive equipment. She still drives. Equipment Owned/DME: None Subjective: Patient reports discomfort in the posterior aspect of her R shoulder. She is agreeable to a PT evaluation and says ?I?ll do as much as I can, but I am uncomfortable?. She denies headache, dizziness, and lightheadedness and says this is the first time she?s gotten up since surgery. Objective: General Observation: Patient is seen sitting in the recliner with a disconnected IV in her L UE, and her R UE is in a sling. Mental Status: Alert and oriented x 4 Pain: 4/10 ROM: Right Upper Extremity: PROM for shoulder forward flexion is 60 degrees. PROM for ER is 30 degrees. No other movements done per orthopedic surgeon's orders. Left Upper Extremity: Shoulder Flexion 50-75% of normal range. Shoulder abduction 50% or normal range. Elbow flexion WFL. Functional opening and closing of hand WFL. Right Lower Extremity: Hip flexion WFL. Hip abduction WFL. Knee flexion WFL. Ankle dorsiflexion WFL. Ankle plantarflexion WFL. Left Lower Extremity: Hip flexion WFL. Hip abduction WFL. Knee flexion WFL. Ankle dorsiflexion WFL. Ankle plantarflexion WFL. Strength: Right Upper Extremity: NT due to precautions. Left Upper Extremity: Shoulder flexors 3-/5. Shoulder abductors 3-/5. Elbow flexors 4/5. Elbow extensors 4/5. Web Developer strong. Right Lower Extremity: Hip flexors 4/5. Hip abductors 5/5. Knee flexors 4/5. Knee extensors 5/5. Ankle dorsiflexors 4/5. Ankle plantarflexors 5/5. Left Lower Extremity:Hip flexors 4/5. Hip abductors 5/5. Knee flexors 4/5. Knee extensors 5/5. Ankle dorsiflexors 4/5. Ankle plantarflexors 5/5. Bed Mobility/Transfers: Rolling to left independent Supine to sit Independent Sit to supine Independent Sit to stand Independent Stand to sit Independent Bed to chair Supervision Chair to bed Supervision Gait: Patient ambulated 120? without an assistive device with supervision and wheelchair follow. She exhibited significant trunk sway demonstrating a decrease in core stability. She had an increased base of support as well. Balance: Static Sitting: Normal Dynamic Sitting: Normal Static Standing: Normal Dynamic Standing: Normal Special Tests: Mobility Limitations Standardized Measure [facility] 6 clicks Basic Mobility Inpatient Short Form: Raw Score: 23 CMS Score: 16% deficit Informed Consent/Education: Patient instructed in purpose of PT consult and plan of care. Assessment: Patient is a 79-year-old female with right shoulder complex proximal humerus fracture 4 parts with head split and an incarcerated right long head of the biceps tendon sustained from a fall 11 days ago. He is s/p R reverse shoulder arthroplasty with open biceps tenodesis and bone grafting autograft on postoperative day 1.. Her strength and ROM were unable to be tested due to post-op immobilization protocol. She lives alone in an apartment in [place] with no steps to enter. She is fairly deconditioned and reported shortness of breath following a 120? walk. Her prognosis is fair. Patient presents with clinical signs and symptoms consistent with current/admitting diagnoses that have resulted to mobility limitations, gait instability, generalized weakness, and impairment of motor control as demonstrated by the following impairment level findings: 1. Decreased strength to B UE major muscle groups 2. Impaired activity tolerance 3. Limitation of joint range of motion in B GH Flexion, GH ER, GH Abduction Impairments are contributing to the following functional limitations: 1. Dependent bed mobility skills 2. Increase completion time for mobility ADL performance 3. Increased fall risk Patient is assessed as a 28709 moderate complexity based on the following: History: Patient is a 79-year-old female with right shoulder complex proximal humerus fracture 4 parts with head split and an incarcerated right long head of the biceps tendon sustained from a fall 11 days ago. He is s/p R reverse shoulder arthroplasty with open biceps tenodesis and bone grafting autograft on postoperative day 1. Examination: Demonstrable impairment in strength, balance, and range of motion with underlying impairments and functional limitations as documented above Presentation: Evolving Decision Makin moderate complexity Goals: Goals X 3 days 1. Bed-Chair independent 2. Chair-Bed independent 3. Independent gait on level surface with use of least restrictive device for at least 300 feet without report of pain nor dyspnea 4. Independent with home exercise program 5. Good static and dynamic standing balance/tolerance Plan of Care/Treatment Plan: 1-2x/day, 7 days/week x 1 week. Plan of care has been reviewed with the MATERIALS HANDLING EQUIPMENT OPERATOR providing the service under Physical Therapy direction. Initiate Physical Therapy intervention for strengthening, bed mobility, transfers, gait, stairs, balance training, use of assistive device. DISCHARGE RECOMMENDATIONS: Patient is to be discharged to home under the concerted care of friends and neighbors. The patient is recommended to receive home health PT and OT services. TREATMENT CODE/TIME: 18559 x 37 minutes beginning at 9:01 AM. Thank you very much for this referral. Claudio Blair, [facility] With the supervision of: Marizol Morrison PT, DPT, CLT [facility]
[2019-06-22] MEDS: Docusate Sodium 100 MG CAP PO (14:28)
--- NOTE | 2019-06-22 15:09 | PDOC.CMIN ---
- If Service Date Differs Date of service: 06/22/19 Time of Service: 15:09 Care Management Initial Assess REASON FOR HOSPITALIZATION:: Closed fracture of proximal end of right humerus PAST MEDICAL HISTORY/PAST SURGICAL HISTORY:: Medical History. At risk for inadequate pain control (Chronic 01/11/18). Gordon's esophagus (Chronic). NEG H. PYLORI. egd 2016. Bilateral low back pain without sciatica (Chronic 05/13/16). Essential hypertension (Chronic 10/02/13). Family history of colon cancer (Chronic 02/05/10). father. Fracture of proximal end of left humerus (Chronic). Hiatal hernia (Chronic). Hyperlipidemia (Chronic). Intestinal metaplasia of gastric mucosa (Chronic 02/14/14). EGD 02/05/14 FU 3 YEARS. Lichen planus (Chronic). on rt bolton. Osteopenia (Chronic). Right lower quadrant pain (Chronic 05/27/16). Rosacea (Chronic). Skin irritation (Chronic 01/18/18). Skin tag (Chronic 05/27/16). Spondylosis of lumbar region without myelopathy or radiculopathy (Chronic). Tendinitis of left rotator cuff (Chronic). Traumatic closed displaced fracture of proximal end of left humerus with routine healing (Chronic 01/03/18). 01/03/18. Varicose veins of lower extremity (Chronic). Vitiligo (Chronic). Surgical History. Appendectomy. no date given. BIOPSY (02/05/14). DISTAL ESOPHAGUS BX. Cholecystectomy (~10/2001). Colonoscopy - MAC (~01/2014). EGD - IV Sedation (02/15/17). Endoscopy. 02/15/17 [facility]. Finger Surgery. CYST REMOVAL;DR. YEPEZ; 03/17/17. Ligation of fallopian tube. Medial Branch Block. 10/12/16; PAIN CLINIC 10/12/16 PREVIOUS FUNCTIONAL STATUS/SOCIAL/FAMILY SUPPORTS:: Maite lives alone in an apartment in [place]. She has a large supportive family including 8 siblings, 4 children, 1 grandchild and 3 great children. She does not drive, but is otherwise independent with ADL's. CURRENT FUNCTIONAL STATUS:: Maite was sitting up in her chair when CM met with her. Her sister, Shaniqua was also in the room. Maite expressed her concerns about going home due to one arm being in a sling. CM asked if anyone would be there to help her, which she reported that Shaniqua would be staying with her for a while to help her while she recovers. HH was discussed, but it was not recommended by the MD, so Maite agreed to wait until her follow up with Dr. Landeros. CM will continue to follow. ADVANCE DIRECTIVES:: On file, Juliana Hines is listed as agent Has patient been provided with information about the portal?: Yes Did the patient sign up for the portal?: Yes (already signed up) CODE STATUS:: Full Code INSURANCE COVERAGE / FINANCIAL ISSUES:: MCR CURRENT HOME/COMMUNITY SERVICES/EQUIPMENT:: No current services or equipment at this time PRIMARY CARE PHYSICIAN:: Kerrie Staples POTENTIAL DISCHARGE NEEDS:: Evaluations for further needs, follow up appointments PATIENT/FAMILY EDUCATION NEEDS:: Review of community based supports, discharge plan, discussion of self care needs including Ask Me Three ANTICIPATED BARRIERS TO DISCHARGE:: None identified at this time. TRANSPORTATION:: Maite's sister, Shaniqua will drive her home via private vehicle PLAN:: Anticipate Maite will return home with no additional services. Her sister, Shaniqua will drive her home via private vehicle. She will have a follow up appointment with Dr. Landeros. KURTIS to follow.
[2019-06-22 15:36] VITALS: BP 121/72; PULSE 79; RESP 17; TEMP 36.6; O2SAT 97
--- NOTE | 2019-06-22 17:06 | PDOC.CMDIS ---
- If Service Date Differs Date of service: 06/22/19 Time of Service: 17:06 LACE Index Scoring Tool - Questions: Length of Stay (in days): 2 Acuity (Admit via E.D.?): No E.D. Visits: 1 - Answers: Total Score: 3 Risk of Readmission: Low Risk Care Management Discharge Reason for Hospitalization: Closed fracture of proximal end of right humerus Discharge Plan: Maite will return home with no additional services at this time. Her sister, Shaniqua will drive her home via private vehicle. She will have a follow up appointment with Ortho as recommended. Patient/Family Education Needs: Review of discharge instructions, discussion of self care needs including Ask Me Three
--- NOTE | 2019-06-27 15:55 | PT.INDS ---
Date of service: 06/27/19 PT Notes Inpatient Physical Therapy Discharge Summary Dates: 06/22/2019 Dates of Service: 06/22/2019 only Referring Doctor: Peter Landeros MD PT Orders: PT CONSULT: S/P Ortho Surgery. Passive only ROM 0-30 ER, FF to 90 degrees (gentle) Precautions: Fall. Standard. NWB on RUE. Patient Profile/Admitting Diagnosis: Patient is a 79-year-old female with right shoulder complex proximal humerus fracture 4 parts with head split and an incarcerated right long head of the biceps tendon sustained from a fall 11 days ago. He is s/p R reverse shoulder arthroplasty with open biceps tenodesis and bone grafting autograft on postoperative day 1. PMHX: Medical History At risk for inadequate pain control (Chronic 01/11/18) Gordon's esophagus (Chronic) NEG H. PYLORI egd 2016 Bilateral low back pain without sciatica (Chronic 05/13/16) Essential hypertension (Chronic 10/02/13) Family history of colon cancer (Chronic 02/05/10) father Fracture of proximal end of left humerus (Chronic) Hiatal hernia (Chronic) History of postoperative nausea and vomiting (Acute) Hyperlipidemia (Chronic) Intestinal metaplasia of gastric mucosa (Chronic 02/14/14) EGD 02/05/14 FU 3 YEARS Lichen planus (Chronic) on rt bolton Osteopenia (Chronic) Right lower quadrant pain (Chronic 05/27/16) Rosacea (Chronic) Skin irritation (Chronic 01/18/18) Skin tag (Chronic 05/27/16) Spondylosis of lumbar region without myelopathy or radiculopathy (Chronic) Tendinitis of left rotator cuff (Chronic) Traumatic closed displaced fracture of proximal end of left humerus with routine healing (Chronic 01/03/18) 01/03/18 Varicose veins of lower extremity (Chronic) Vitiligo (Chronic) Surgical History Appendectomy no date given BIOPSY (02/05/14) DISTAL ESOPHAGUS BX Cholecystectomy (~10/2001) Colonoscopy - MAC (~01/2014) EGD - IV Sedation (02/15/17) Endoscopy 02/15/17 [facility] Finger Surgery CYST REMOVAL;DR. YEPEZ; 03/17/17 History of Mike fundoplication (Chronic) Ligation of fallopian tube Medial Branch Block 10/12/16; PAIN CLINIC 10/12/16 Social History/Home Situation: Patient lives alone in a one-story apartment with no steps to enter. She is independent with all aspects of ADLs without the need for an assistive ambulatory device nor adaptive equipment. She still drives. Equipment Owned/DME: None Subjective: NT Objective: General Observation: NT Mental Status: NT Pain: NT ROM: Right Upper Extremity: PROM for shoulder forward flexion is 60 degrees. PROM for ER is 30 degrees. No other movements done per orthopedic surgeon's orders. Left Upper Extremity: Shoulder Flexion 50-75% of normal range. Shoulder abduction 50% or normal range. Elbow flexion WFL. Functional opening and closing of hand WFL. Right Lower Extremity: Hip flexion WFL. Hip abduction WFL. Knee flexion WFL. Ankle dorsiflexion WFL. Ankle plantarflexion WFL. Left Lower Extremity: Hip flexion WFL. Hip abduction WFL. Knee flexion WFL. Ankle dorsiflexion WFL. Ankle plantarflexion WFL. Strength: Right Upper Extremity: NT due to precautions. Left Upper Extremity: Shoulder flexors 3-/5. Shoulder abductors 3-/5. Elbow flexors 4/5. Elbow extensors 4/5. Bridge Rigger strong. Right Lower Extremity: Hip flexors 4/5. Hip abductors 5/5. Knee flexors 4/5. Knee extensors 5/5. Ankle dorsiflexors 4/5. Ankle plantarflexors 5/5. Left Lower Extremity:Hip flexors 4/5. Hip abductors 5/5. Knee flexors 4/5. Knee extensors 5/5. Ankle dorsiflexors 4/5. Ankle plantarflexors 5/5. Bed Mobility/Transfers: Rolling to left independent Supine to sit Independent Sit to supine Independent Sit to stand Independent Stand to sit Independent Bed to chair Supervision Chair to bed Supervision Gait: Patient ambulated 120? without an assistive device with supervision and wheelchair follow. She exhibited significant trunk sway demonstrating a decrease in core stability. She had an increased base of support as well. Balance: Static Sitting: Normal Dynamic Sitting: Normal Static Standing: Normal Dynamic Standing: Normal Assessment: Patient is a 79-year-old female with right shoulder complex proximal humerus fracture 4 parts with head split and an incarcerated right long head of the biceps tendon sustained from a fall 11 days ago. He is s/p R reverse shoulder arthroplasty with open biceps tenodesis and bone grafting autograft on postoperative day 1.. Her strength and ROM were unable to be tested due to post-op immobilization protocol. She lives alone in an apartment in [place] with no steps to enter. She is fairly deconditioned and reported shortness of breath following a 120? walk. Her prognosis is fair. Patient presents with clinical signs and symptoms consistent with current/admitting diagnoses that have resulted to mobility limitations, gait instability, generalized weakness, and impairment of motor control as demonstrated by the following impairment level findings: 1. Decreased strength to B UE major muscle groups 2. Impaired activity tolerance 3. Limitation of joint range of motion in B GH Flexion, GH ER, GH Abduction Impairments are contributing to the following functional limitations: 1. Dependent bed mobility skills 2. Increase completion time for mobility ADL performance 3. Increased fall risk Goals: Goals X 3 days 1. Bed-Chair independent NOT MET 2. Chair-Bed independent NOT MET 3. Independent gait on level surface with use of least restrictive device for at least 300 feet without report of pain nor dyspnea NOT MET 4. Independent with home exercise program NOT MET 5. Good static and dynamic standing balance/tolerance NOT MET DISCHARGE RECOMMENDATIONS: Patient is to be discharged to home under the concerted care of friends and neighbors. The patient is recommended to receive home health PT and OT services. TREATMENT CODE/TIME: NC. Thank you very much for this referral. Marizol Morrison PT, DPT, CLT [facility]
== END 2019-06-22 17:37 | disposition home or self-care (01) | DRG 483 ==
LOC: PDS 09:17 → MS 18:19
PROVIDERS: Admitting Provider Student in an Organized Health Care Education/Training Program; Visit Provider Student in an Organized Health Care Education/Training Program
PROC: 0RRJ00Z Replacement of Right Shoulder Joint with Reverse Ball and Socket Synthetic Substitute, Open Approach (ICD-10-PCS; CPT 23472; principal; 2019-06-21 10:45)
DX: S42.241A 4-part fracture of surgical neck of right humerus, initial encounter for closed fracture (principal); S46.191A Other injury of muscle, fascia and tendon of long head of biceps, right arm, initial encounter; W01.0XXA Fall on same level from slipping, tripping and stumbling without subsequent striking against object, initial encounter; G89.18 Other acute postprocedural pain; I10 Essential (primary) hypertension; E78.5 Hyperlipidemia, unspecified; K22.70 Barrett's esophagus without dysplasia
CPT/HCPCS: 23472; 23430; 97110; 97162; 97530; NC; 73030; J0690; J1100; J1885; J2250; J2370; J2405; J3010; L3650

== ENCOUNTER 2019-07-04 13:15 | Outpatient (CLI) | payer MEDICARE, SELFPAY ==
--- NOTE | 2019-07-04 13:05 | DI.RAD_ITS ---
EXAM: XR SHOULDER RT COMPLETE 2+V INDICATION: 1st post op. COMPARISON: XR SHOULDER RT COMPLETE 2+V from 06/21/2019 TECHNIQUE: 2D digital imaging was performed. FINDINGS: The distal aspect of the humeral component of the shoulder prosthesis is not included on the exam. T here has been no gross change of the shoulder prosthesis. No new abnormalities are seen.
== END 2019-07-04 13:35 ==
PROVIDERS: Visit Provider Student in an Organized Health Care Education/Training Program
DX: S42.291A Other displaced fracture of upper end of right humerus, initial encounter for closed fracture (principal); Z96.611 Presence of right artificial shoulder joint; X58.XXXA Exposure to other specified factors, initial encounter
CPT/HCPCS: 73030

== ENCOUNTER 2019-07-17 16:05 | Outpatient (CLI) | payer MEDICARE, SELFPAY ==
--- NOTE | 2019-07-17 15:35 | DI.RAD_ITS ---
EXAM: XR CHEST 2V PA LATERAL INDICATION: fever/malaise and rales RLL. COMPARISON: LEFT SHOULDER COMPLETE from 01/01/2018 TECHNIQUE: 2D digital imaging was performed. FINDINGS: The heart size is within normal limits. There is tortuosity of the thoracic aorta. There are linear infiltrates in the left lung base. This may represent atelectasis, scarring, or pneumonia. The jorge gs are otherwise clear. No effusions or pneumothoraces are present. There is an old healed fracture of the proximal left humerus. Note is made of a total reverse right shoulder replacement. Degenera tive changes are seen in the spine. IMPRESSION: Left basilar infiltrate. This may represent atelectasis, scarring, or pneumonia.
--- NOTE | 2019-07-17 16:31 | DI.VRAD_ITS ---
PROCEDURE INFORMATION: Exam: XR Chest, 2 Views Exam date and time: 07/17/2019 4:01 PM Clinical history: 79 years old, female; Other: Fever/malaise and rales TECHNIQUE: Imaging protocol: XR of the chest Views: 2 views. COMPARISON: No relevant prior studies available. FINDINGS: Lungs: Mild opacities in the left base may represent atelectasis/pneumonia. Pleural space: Unremarkable. No pleural effusion. No pneumothorax. Heart/Mediastinum: Unremarkable. No cardiomegaly. Vasculature: Tortuous aorta Bones/joints: Right glenohumeral prosthesis Healed humeral neck fracture IMPRESSION: Mild opacities in the left base may represent atelectasis/pneumonia. Dictated and Authenticated by: Viraj Knight MD. Ordering:ESTEE Mendoza MD
[2019-07-17 16:34] LABS: Abs Immature Grans 0.02 k/cumm (0.0-0.09); Absolute Basophil Count 0.01 k/cumm (0.0-0.2); Absolute Lymphocyte Count 0.44 k/cumm (1.2-3.4); Absolute Monocyte Count 0.41 k/cumm (0.11-0.7); Absolute Neutrophil Count 2.17 k/cumm (1.2-6.7); Basophils % 0.3; HCT 34.3 % (36.0-46.0); Immature Grans % 0.7; Lymphocytes % 14.4; Mean Corp. HGB Concentration 32.1 g/dL (32.0-36.0); Mean Corpuscular Hemoglobin 28.3 pg (27.0-33.0); Mean Corpuscular Volume 88.2 fL (80-95); Mean Platelet Volume 9.7 fL (8.0-11.0); Monocytes % 13.4; Neutrophils % 71.2; Platelet Count 232 x1000/uL (130-400); RBC 3.89 m/cumm (4.00-5.20); RBC Distribution Width 14.2 % (11.7-14.6); White Blood Cell Count 3.05 k/cumm (4.4-10.8)
[2019-07-17 17:10] LABS: Anion Gap 11.2 mmol/L (3-11); BUN 25 mg/dL (7-18); CO2 26.8 mmol/L (21.0-32.0); CREATININE 0.82 mg/dL (0.55-1.02); Calcium 8.6 mg/dL (8.5-10.1); Chloride 96 mmol/L (98-107); Glucose 100 mg/dL (70-100); Sodium 134 mmol/L (136-145)
== END 2019-07-17 16:25 ==
PROVIDERS: Visit Provider Family Medicine
DX: R50.9 Fever, unspecified (principal); R53.81 Other malaise; R91.8 Other nonspecific abnormal finding of lung field; R09.89 Other specified symptoms and signs involving the circulatory and respiratory systems
CPT/HCPCS: 36415; 80048; 71046; 85025

== ENCOUNTER 2019-08-01 13:15 | Outpatient (CLI) | payer MEDICARE, SELFPAY ==
--- NOTE | 2019-08-01 12:59 | DI.RAD_ITS ---
EXAM: XR SHOULDER RT COMPLETE 2+V INDICATION: Reverse right total shoulder. COMPARISON: XR SHOULDER RT COMPLETE 2+V from 07/04/2019 TECHNIQUE: 2D digital imaging was performed. FINDINGS: There are stable postsurgical changes of a total reverse shoulder replacement. The bones are intact. The soft tissues are unremarkable.
== END 2019-08-01 13:35 ==
PROVIDERS: Visit Provider Physician Assistant
DX: Z96.611 Presence of right artificial shoulder joint (principal); Z47.1 Aftercare following joint replacement surgery; S42.201D Unspecified fracture of upper end of right humerus, subsequent encounter for fracture with routine healing; X58.XXXD Exposure to other specified factors, subsequent encounter
CPT/HCPCS: 73030

== ENCOUNTER 2019-08-29 07:52 | Outpatient (CLI) | payer MEDICARE, SELFPAY ==
--- NOTE | 2019-08-29 11:01 | DI.RAD_ITS ---
EXAM: XR CHEST 2V PA LATERAL INDICATION: F/U PNEUMONIA,J18.9. COMPARISON: XR CHEST 2V PA LATERAL from 07/17/2019 TECHNIQUE: 2D digital imaging was performed. FINDINGS: Heart size is within normal limits. There is tortuosity of the thoracic aorta. The lungs are clear. No effusions or pneumothoraces are identified. Degenerative changes are seen in the spine. IMPRESSION: No acute pulmonary process.
[2019-08-29 11:28] LABS: HCT 37.2 % (36.0-46.0); HGB 11.8 g/dL (12.0-15.5); Mean Corp. HGB Concentration 31.7 g/dL (32.0-36.0); Mean Corpuscular Hemoglobin 27.4 pg (27.0-33.0); Mean Corpuscular Volume 86.3 fL (80-95); Mean Platelet Volume 10.3 fL (8.0-11.0); Platelet Count 276 x1000/uL (130-400); RBC 4.31 m/cumm (4.00-5.20); RBC Distribution Width 14.6 % (11.7-14.6); White Blood Cell Count 6.13 k/cumm (4.4-10.8)
== END 2019-08-29 08:12 ==
PROVIDERS: Visit Provider Family Medicine
DX: J18.9 Pneumonia, unspecified organism (principal); D64.9 Anemia, unspecified
CPT/HCPCS: 36415; 85027; 71046

== ENCOUNTER 2019-09-18 13:21 | Outpatient (CLI) | payer MEDICARE, SELFPAY ==
--- NOTE | 2019-09-18 13:26 | DI.RAD_ITS ---
EXAM: XR SHOULDER RT COMPLETE 2+V CLINICAL HISTORY: F/U RTC TECHNIQUE: COMPARISON: XR SHOULDER RT COMPLETE 2+V from 08/01/2019 FINDINGS: Three views were obtained and show reverse shoulder prosthesis in place. The components appear well seated. No change in appearance comparison with prior study of August 01. IMPRESSION:
== END 2019-09-18 13:41 ==
PROVIDERS: Visit Provider Student in an Organized Health Care Education/Training Program
DX: Z96.611 Presence of right artificial shoulder joint (principal); S42.291D Other displaced fracture of upper end of right humerus, subsequent encounter for fracture with routine healing; X58.XXXD Exposure to other specified factors, subsequent encounter; M75.82 Other shoulder lesions, left shoulder
CPT/HCPCS: 99213; 73030

== ENCOUNTER 2019-11-13 02:33 | Outpatient (CLI) | payer MEDICARE, SELFPAY ==
[2019-11-13 12:50] LABS: ALT 25 U/L (14-59); AST 20 U/L (15-37); Albumin 3.6 g/dL (3.4-5.0); Alkaline Phosphatase 83 U/L (46-116); Anion Gap 9.4 mmol/L (3-11); BUN 17 mg/dL (7-18); Bilirubin, Total 0.5 mg/dL (0.2-1.0); CO2 27.6 mmol/L (21.0-32.0); CREATININE 0.64 mg/dL (0.55-1.02); Calcium 9.2 mg/dL (8.5-10.1); Calculated LDL 86 mg/dL (<100); Chloride 104 mmol/L (98-107); Cholesterol 180 mg/dL (<200); Glucose 89 mg/dL (74-106); HDL Cholesterol 76 mg/dL (40-60); Potassium 4.3 mmol/L (3.5-5.1); Sodium 141 mmol/L (136-145); Total Protein 6.7 g/dL (6.4-8.2); Triglyceride 90 mg/dL (<150)
== END 2019-11-13 02:53 ==
DX: E78.5 Hyperlipidemia, unspecified (principal); I10 Essential (primary) hypertension; K22.70 Barrett's esophagus without dysplasia; Z80.0 Family history of malignant neoplasm of digestive organs
CPT/HCPCS: 36415; 80053; 80061

== ENCOUNTER 2020-01-15 14:52 | Outpatient (CLI) | payer MEDICARE, SELFPAY ==
--- NOTE | 2020-01-15 13:00 | DI.RAD_ITS ---
EXAM: XR SHOULDER RT COMPLETE 2+V CLINICAL HISTORY: f/u fracture TECHNIQUE: COMPARISON: XR SHOULDER RT COMPLETE 2+V from 09/18/2019 FINDINGS: Two views were obtained and show a reverse shoulder prosthesis in position. The components appear we ll seated. Deformity of proximal humerus again noted unchanged from multiple prior studies. IMPRESSION:
--- NOTE | 2020-01-15 13:15 | DI.RAD_ITS ---
EXAM: XR SHOULDER LT 1V CLINICAL HISTORY: f/u fracture TECHNIQUE: COMPARISON: XR shoulder LT complete 2+V from 09/25/2018 XR SHOULDER RT COMPLETE 2+V from 09/18/2019 FINDINGS: Two views were obtained. Previously noted deformity of the proximal humerus is again seen. Glenohum eral cartilaginous joint space appears fairly well maintained. Moderate AC joint hypertrophic change s noted. No evidence of acute process. IMPRESSION:
== END 2020-01-15 15:12 ==
PROVIDERS: Visit Provider Student in an Organized Health Care Education/Training Program
DX: Z96.611 Presence of right artificial shoulder joint; M85.88 Other specified disorders of bone density and structure, other site; S42.292D Other displaced fracture of upper end of left humerus, subsequent encounter for fracture with routine healing; S42.291D Other displaced fracture of upper end of right humerus, subsequent encounter for fracture with routine healing; S42.202D Unspecified fracture of upper end of left humerus, subsequent encounter for fracture with routine healing; X58.XXXD Exposure to other specified factors, subsequent encounter; M75.82 Other shoulder lesions, left shoulder
CPT/HCPCS: 99213; 73020; 73030

== ENCOUNTER 2020-03-28 07:46 | Outpatient (CLI) | payer MEDICARE, SELFPAY ==
[2020-04-02 19:18] LABS: SARS-CoV-2 RNA Undetected (Undetected)
== END 2020-03-28 08:06 ==
PROVIDERS: Visit Provider Surgery
DX: Z01.818 Encounter for other preprocedural examination (principal); Z03.818 Encounter for observation for suspected exposure to other biological agents ruled out
CPT/HCPCS: U0003

== ENCOUNTER 2020-04-14 07:46 | Outpatient (CLI) | payer MEDICARE, SELFPAY ==
[2020-04-16 21:14] LABS: COVID-19 RT-PCR Result NEGATIVE (Negative)
== END 2020-04-14 08:06 ==
PROVIDERS: Visit Provider Surgery
DX: Z03.818 Encounter for observation for suspected exposure to other biological agents ruled out (principal)
CPT/HCPCS: U0003

== ENCOUNTER 2020-06-03 07:20 | Outpatient (CLI) | payer MEDICARE, SELFPAY ==
[2020-06-04 12:42] LABS: COVID-19 RT-PCR Result NEGATIVE (Negative)
== END 2020-06-03 07:40 ==
PROVIDERS: Visit Provider Surgery
DX: Z11.59 Encounter for screening for other viral diseases (principal); Z01.818 Encounter for other preprocedural examination
CPT/HCPCS: U0003

== ENCOUNTER 2020-07-02 15:50 | Outpatient (CLI) | payer MEDICARE, SELFPAY ==
--- NOTE | 2020-07-02 13:15 | DI.RAD_ITS ---
EXAM: XR SHOULDER RT COMPLETE 2+V CLINICAL HISTORY: fu shoulder fx. TECHNIQUE: 2D digital imaging was performed. COMPARISON: CR XR SHOULDER RT COMPLETE 2+V from 06/20/2019 CR XR SHOULDER RT COMPLETE 2+V from 06/21/2019 CR XR SHOULDER RT COMPLETE 2+V from 07/04/2019 CR XR SHOULDER RT COMPLETE 2+V from 08/01/2019 CR XR SHOULDER RT COMPLETE 2+V from 09/18/2019 CR XR SHOULDER RT COMPLETE 2+V from 01/15/2020 FINDINGS: BONES: No acute fracture is present. There is been a progressive decrease in the amount of bone along the medial aspect of the metaphyseal portion of the proximal humerus component compared to the prior examination. While this may represent a fracture infection cannot be excluded. JOINTS: The orthopedic hardware appears stable. Degenerative changes are seen at the acromioclavicul ar joint. SOFT TISSUE: Normal. IMPRESSION: DATA REPOSITORY: RADIATION DOSE DELIVERED:
== END 2020-07-02 16:10 ==
PROVIDERS: Visit Provider Student in an Organized Health Care Education/Training Program
DX: M19.011 Primary osteoarthritis, right shoulder (principal); S42.91XD Fracture of right shoulder girdle, part unspecified, subsequent encounter for fracture with routine healing; Z47.89 Encounter for other orthopedic aftercare; Z87.81 Personal history of (healed) traumatic fracture; I10 Essential (primary) hypertension; X58.XXXD Exposure to other specified factors, subsequent encounter
CPT/HCPCS: 99213; 73030

== ENCOUNTER 2020-09-02 11:51 | Outpatient (CLI) | payer MEDICARE, SELFPAY ==
--- NOTE | 2020-09-02 11:30 | DI.RAD_ITS ---
EXAM: XR SHOULDER RT COMPLETE 2+V CLINICAL HISTORY: F/u. TECHNIQUE: 2D digital imaging was performed. COMPARISON: CR XR SHOULDER RT COMPLETE 2+V from 07/02/2020 FINDINGS: BONES: No acute fracture is present. There has been no change in appearance of the right reverse tota l shoulder replacement since the prior examination of 07/02/2020. No further decrease in the amount o f bone is noted. JOINTS: No dislocation present. Degenerative changes are seen at the acromioclavicular joint. SOFT TISSUE: Normal. IMPRESSION: Stable right reverse total shoulder replacement. DATA REPOSITORY: RADIATION DOSE DELIVERED:
== END 2020-09-02 12:11 ==
PROVIDERS: Visit Provider Student in an Organized Health Care Education/Training Program
DX: Z96.611 Presence of right artificial shoulder joint (principal); M25.511 Pain in right shoulder; S42.291A Other displaced fracture of upper end of right humerus, initial encounter for closed fracture; X58.XXXA Exposure to other specified factors, initial encounter
CPT/HCPCS: 99213; 73030

== ENCOUNTER 2020-10-14 13:58 | Outpatient (CLI) | payer MEDICARE, SELFPAY ==
--- NOTE | 2020-10-14 14:00 | DI.RAD_ITS ---
EXAM: XR SHOULDER RT COMPLETE 2+V INDICATION: f/u. COMPARISON: CR XR SHOULDER RT COMPLETE 2+V from 09/02/2020 TECHNIQUE: 2D digital imaging was performed. FINDINGS: A shoulder prosthesis is again noted with both glenoid and humeral components. There is no change in the alignment of the prosthesis. There has been no change in the appearance of the surrounding bone . No new abnormalities are seen. DATA REPOSITORY: RADIATION DOSE DELIVERED:
== END 2020-10-14 14:18 ==
PROVIDERS: Visit Provider Student in an Organized Health Care Education/Training Program
DX: Z96.611 Presence of right artificial shoulder joint; S42.291D Other displaced fracture of upper end of right humerus, subsequent encounter for fracture with routine healing; S42.202D Unspecified fracture of upper end of left humerus, subsequent encounter for fracture with routine healing; X58.XXXD Exposure to other specified factors, subsequent encounter
CPT/HCPCS: 99213; 73030

== ENCOUNTER 2020-11-24 04:09 | Outpatient (CLI) | payer MEDICARE, SELFPAY ==
[2020-11-24 12:47] LABS: ALT 24 U/L (14-59); AST 25 U/L (15-37); Albumin 3.6 g/dL (3.4-5.0); Alkaline Phosphatase 76 U/L (46-116); Anion Gap 8.7 mmol/L (3-11); BUN 33 mg/dL (7-18); Bilirubin, Total 0.3 mg/dL (0.2-1.0); CO2 28.3 mmol/L (21.0-32.0); CREATININE 0.7 mg/dL (0.55-1.02); Calcium 9.2 mg/dL (8.5-10.1); Chloride 102 mmol/L (98-107); Glucose 90 mg/dL (74-106); Potassium 4.3 mmol/L (3.5-5.1); Sodium 139 mmol/L (136-145)
== END 2020-11-24 04:10 | disposition home or self-care (01) ==
LOC: LOS 04:10
DX: I10 Essential (primary) hypertension (principal); E78.5 Hyperlipidemia, unspecified
CPT/HCPCS: 36415; 80053

== ENCOUNTER 2021-01-06 11:09 | Outpatient (CLI) | payer MEDICARE, SELFPAY ==
--- NOTE | 2021-01-06 10:20 | DI.RAD_ITS ---
EXAM: XR SHOULDER RT COMPLETE 2+V CLINICAL HISTORY: right shoulder pain TECHNIQUE: COMPARISON: CR XR SHOULDER RT COMPLETE 2+V from 10/14/2020 FINDINGS: Three views were obtained. There is a reverse shoulder prosthesis in position. The components appea r well seated. No other significant bony abnormality seen. IMPRESSION: RADIATION DOSE DELIVERED: Total DLP
== END 2021-01-06 11:10 | disposition home or self-care (01) ==
LOC: DIORS 11:10
PROVIDERS: Visit Provider Student in an Organized Health Care Education/Training Program
DX: S42.291D Other displaced fracture of upper end of right humerus, subsequent encounter for fracture with routine healing (principal); S42.202D Unspecified fracture of upper end of left humerus, subsequent encounter for fracture with routine healing; X58.XXXD Exposure to other specified factors, subsequent encounter; M25.511 Pain in right shoulder
CPT/HCPCS: 99213; 73030

== ENCOUNTER 2021-03-17 11:57 | Outpatient (CLI) | payer MEDICARE, SELFPAY ==
--- NOTE | 2021-03-17 10:15 | DI.RAD_ITS ---
Exam(s) XR SHOULDER RT COMPLETE 2+V EXAM: XR SHOULDER RT COMPLETE 2+V CLINICAL HISTORY: f/u fracture TECHNIQUE: COMPARISON: CR XR SHOULDER RT COMPLETE 2+V from 01/06/2021 FINDINGS: Three views were obtained and show a reverse shoulder prosthesis in position. Components appear well seated. No gross interval change in alignment comparison with examination of January 06. IMPRESSION: RADIATION DOSE DELIVERED: Total DLP
== END 2021-03-17 11:58 | disposition home or self-care (01) ==
LOC: DIORS 11:58
PROVIDERS: Visit Provider Student in an Organized Health Care Education/Training Program
DX: S42.291A Other displaced fracture of upper end of right humerus, initial encounter for closed fracture (principal); S42.202D Unspecified fracture of upper end of left humerus, subsequent encounter for fracture with routine healing; X58.XXXD Exposure to other specified factors, subsequent encounter; Z96.611 Presence of right artificial shoulder joint
CPT/HCPCS: 99213; 73030

== ENCOUNTER 2021-03-19 04:11 | Outpatient (CLI) | payer MEDICARE, SELFPAY ==
[2021-03-19 13:40] LABS: Abs Immature Grans 0.02 10^3/uL (0.0-0.06); Absolute Basophil Count 0.06 10^3/uL (0.0-0.2); Absolute Eosinophil Count 0.09 10^3/uL (0.0-0.7); Absolute Lymphocyte Count 1.89 10^3/uL (1.2-3.4); Absolute Monocyte Count 0.56 10^3/uL (0.1-0.8); Basophils % 0.9; Eosinophils % 1.3; HCT 40.3 % (36.0-46.0); HGB 12.8 g/dL (11.2-15.7); Immature Grans % 0.3; Lymphocytes % 26.9; MCH 27.4 pg (27.0-33.0); MCHC 31.8 % (32.0-36.0); MCV 86.3 fL (80-95); MPV 10.2 fL (8.0-11.0); Neutrophils % 62.6; Nucleated RBC 0 %; Platelet Count 256 10^3/uL (130-400); RBC 4.67 10^6/uL (3.93-5.22); RDW 14.6 % (11.7-14.6); RDW-SD 46.3 fL; WBC 7.02 10^3/uL (4.4-10.8)
[2021-03-19 13:42] LABS: ESR 15 mm/hr (0-30)
[2021-03-19 14:20] LABS: C-Reactive Protein 0.22 mg/dL (0.0-0.3)
== END 2021-03-19 04:12 | disposition home or self-care (01) ==
LOC: LBO 04:11
PROVIDERS: Visit Provider Student in an Organized Health Care Education/Training Program
DX: S42.291A Other displaced fracture of upper end of right humerus, initial encounter for closed fracture (principal)
CPT/HCPCS: 36415; 85652; 85025; 86140

== ENCOUNTER 2021-03-24 03:03 | Outpatient (CLI) | payer MEDICARE, SELFPAY ==
--- NOTE | 2021-03-24 08:45 | DI.CT_ITS ---
Exam(s) CT UPPER EXTREMITY RT WO EXAM: CT UPPER EXTREMITY RT WO CLINICAL HISTORY: Trauma, pain,ARTHRITIS RT GLENOHUMERAL JOINT, M19.011,S42.291A. TECHNIQUE: Imaging Protocol: Axial computed tomography images with coronal and sagittal reformatted images were created and reviewed. COMPARISON: CR Shoulder L from 06/19/[address] UPPER EXTREMITY RT WO from 06/11/2019 CR XR SHOULDER RT COMPLETE 2+V from 06/20/2019 CR XR SHOULDER RT COMPLETE 2+V from 06/20/2019 CR XR SHOULDER RT COMPLETE 2+V from 03/17/2021 CR XR SHOULDER RT COMPLETE 2+V from 03/17/2021 FINDINGS: The patient has a right total reverse shoulder replacement. This causes artifact which limits examin ation. There are osseous fragment seen around the prosthesis. They appear well corticated and are l ikely old. No definite acute fracture or dislocation is appreciated. There are degenerative changes seen at the acromioclavicular joint. Bones are normally mineralized. There is scarring seen in the right lower lobe of the visualized lung field. There is mild fatty atr ophy of the supraspinatus, infraspinatus and subscapularis muscles. The axilla appears unremarkable. There is sclerosis of the anterior lateral aspect of the right 3rd rib. IMPRESSION: 1. Status post right total reverse shoulder replacement. Exam is limited by artifact. 2. Tiny osseous fragments around the prosthesis. They appear well corticated and are likely old. If there is concern for infection or acute abnormality a bone scan may be obtained for further evaluati on. 3. Sclerotic lesion involving the anterolateral aspect of the right 3rd rib. Bone scan may be obtain ed for further evaluation. RADIATION DOSE DELIVERED: 886.79mGy.cm Total DLP 886.79mGy.cm Total DLP DATA REPOSITORY: All CT scans at this facility are submitted to the National Radiology Data Registry (NRDR) Dose Index Registry (DIR) with the [employer] ([employer]). RADIATION OPTIMIZATION: All CT scans at this facility use at least one of these dose optimization te chniques: automated exposure control; mA and/or kV adjustment per patient size (includes targeted exa ms where dose is matched to clinical indication); or iterative reconstruction.
== END 2021-03-24 03:23 ==
PROVIDERS: Visit Provider Student in an Organized Health Care Education/Training Program
DX: M89.9 Disorder of bone, unspecified (principal); M19.011 Primary osteoarthritis, right shoulder; S49.91XA Unspecified injury of right shoulder and upper arm, initial encounter; Z96.611 Presence of right artificial shoulder joint; X58.XXXA Exposure to other specified factors, initial encounter
CPT/HCPCS: 73200

== ENCOUNTER 2021-06-01 16:19 | Emergency (ER) | payer MEDICARE, SELFPAY ==
[2021-06-01 16:24] VITALS: BP 171/82; PULSE 88; RESP 18; TEMP 36.8; O2SAT 97
--- NOTE | 2021-06-01 16:30 | DI.RAD_ITS ---
Exam(s) XR KNEE LT 3V AP,LAT,UNIQUE EXAM: XR KNEE LT 3V AP,LAT,UNIQUE CLINICAL HISTORY: Pain, medial. TECHNIQUE: 2D digital imaging was performed. COMPARISON: MR MRI R LOWER JOINT WO CONT from 04/13/2013 FINDINGS: BONES: No acute fracture is present. No bony destructive lesion is seen. JOINTS: The knee is normally aligned. No joint effusion is seen. Irregularity at the articular aspect of the patella and mild spurring. Mild narrowing of the medial femoral tibial joint space. SOFT TISSUE: Normal. IMPRESSION: Degenerative changes. No acute abnormality. DATA REPOSITORY: RADIATION DOSE DELIVERED:
--- NOTE | 2021-06-01 16:35 | ED.GENADUL_ITS ---
Discharge Plan Disposition Patient Disposition: HOME Condition: Improving Discharge Details Clinical Impression: Left medial knee pain Primary Care Provider: Kerrie Staples ED Provider: Mateo Fish Home Meds and New Rx's Prescriptions: Continued protein shake See Rx Instructions .ROUTE .COMPLEX RF: 0 hydrochlorothiazide 12.5 mg tablet 12.5 mg PO DAILY Qty: 90 RF: 4 Hold Instructions: Home Medication placed on hold at Doctor's office lisinopril 20 mg tablet 20 mg PO DAILY Qty: 90 RF: 3 omeprazole 20 mg capsule,delayed release(DR/EC) 20 mg PO DAILY Qty: 90 RF: 4 pravastatin 20 mg tablet 20 mg PO DAILY Qty: 90 RF: 3 calcium carbonate-vitamin D3 [Caltrate with Vitamin D3] 1 EACH tablet 1 ea PO DAILY RF: 0 cholecalciferol (vitamin D3) 1,000 UNIT tablet 1,000 unit PO DAILY RF: 0 Emergen-C 1,000 MG powder effervescent in packet 1,000 mg PO DAILY RF: 0 [id number] serr [Osteo Bi-Flex (5-Loxin)] 1 EACH tablet 1 tab PO DAILY RF: 0 acetaminophen [Tylenol Extra Strength] 500 mg Tablet 1,000 mg PO Q4H PRNRF: 0 Discharge Instructions Instructions: Knee Pain (ED) Additional Instructions: Follow-up with orthopedics. I placed a referral on your behalf and you should call the office at [phone] for an appointment time. Continue to ice the knee 20 minutes at a time to reduce discomfort. May remove brace/compressive dressing at nighttime and for bathing. Continue Tylenol as needed for pain. Medical Decision Making This is a 81-year-old female who was climbing up stairs using a handrail as an assist, when she developed left medial knee pain as she placed weightbearing on a flexed left knee ascending the next stair tread. She did not fall or injure herself. She since had left medial to lateral knee pain that is worsened with walking. Is minimally improved with Tylenol at home. She arrives ER stable and interactive. Her exam notes no laxity, bruising or significant swelling of the affected joint, there is normal motor and sensory function. The primary finding is left medial joint line tenderness of the knee that augmented with external rotation of the foot. Patient referred for x-ray which reveals medial and patellofemoral compartment arthropathy. No fracture or significant effusion. Consistent with arthritic pain versus soft tissue injury such as meniscus tear. Patient mobilized and weightbearing as tolerated. We will have her follow-up in orthopedics. She is stable for discharge at this time. HPI General Mode of arrival: wheelchair . Date/Time Provider Initiated Documentation: 06/01/21 16:20 . Limitations to Documentation: no limitations . Information obtained by: patient . History of Present Illness 81 year old F presents to the emergency department with the chief complaint of Left knee pain, described as moderate, Quality is described as dull, and is localized to the left and lower extremity. Patient reports no radiation. Patient started experiencing this hour(s) and it has been constant. Rest improves symptom(s), Movement worsens symptoms . Patient notes denies fever/chills and rash. Patient did receive the following treatments prior to arrival, NSAID Related Data Home Medications Medication Instructions Recorded Confirmed calcium carbonate-vitamin D3 1 ea PO DAILY 11/23/12 06/01/21 [Caltrate with Vitamin D3] cholecalciferol (vitamin D3) 1,000 unit PO DAILY 05/13/16 06/01/21 Emergen-C 1,000 mg PO DAILY 11/02/17 06/01/21 [id number] serr 1 tab PO DAILY 11/02/17 06/01/21 [Osteo Bi-Flex (5-Loxin)] acetaminophen [Tylenol Extra 1,000 mg PO Q4H PRN 06/20/19 06/01/21 Strength] hydrochlorothiazide 12.5 mg tablet 12.5 mg PO DAILY #90 tab-cap 11/17/20 06/01/21 lisinopril 20 mg tablet 20 mg PO DAILY #90 tab-cap 11/17/20 06/01/21 omeprazole 20 mg capsule,delayed 20 mg PO DAILY #90 tab-cap 11/17/20 06/01/21 release pravastatin 20 mg tablet 20 mg PO DAILY #90 tab-cap 11/17/20 06/01/21 protein shake See Rx Instructions .ROUTE .COMPLEX 11/17/20 06/01/21 Previous Rx's Medication Instructions Recorded hydrochlorothiazide 12.5 mg tablet 12.5 mg PO DAILY #90 tab-cap 11/17/20 lisinopril 20 mg tablet 20 mg PO DAILY #90 tab-cap 11/17/20 omeprazole 20 mg capsule,delayed 20 mg PO DAILY #90 tab-cap 11/17/20 release pravastatin 20 mg tablet 20 mg PO DAILY #90 tab-cap 11/17/20 Allergies Allergy/AdvReac Type Severity Reaction Status Date / Time oxycodone HCl [From Percocet] AdvReac Intermediate GI, Verified 06/01/21 16:29 Headache, Nausea codeine AdvReac Mild Upset Verified 06/01/21 16:29 Stomach General Stated Complaint: Orthopedic REBA: 4 Review of Systems Narrative: No fall or other injury. Has otherwise been well. 4 systems reviewed and otherwise negative. [facility] Medical History Actinic keratosis At risk for inadequate pain control (01/11/18) Gordon's esophagus EGD 02/05/14 - F/U 3 years [facility]G [facility] egd 2016 Bilateral low back pain without sciatica (05/13/16) Essential hypertension (10/02/13) Family history of colon cancer (02/05/10) father Fracture of proximal end of left humerus Hiatal hernia History of postoperative nausea and vomiting Hyperlipidemia Immunization counseling Intestinal metaplasia of gastric mucosa (02/14/14) EGD 02/05/14 FU 3 YEARS Lichen planus on rt [place] Osteopenia Right lower quadrant pain (05/27/16) Rosacea Skin irritation (01/18/18) Skin tag (05/27/16) Spondylosis of lumbar region without myelopathy or radiculopathy Tendinitis of left rotator cuff Traumatic closed displaced fracture of proximal end of left humerus with routine healing (01/03/18) 01/03/18 Varicose veins of lower extremity Vitiligo Surgical History Appendectomy no date given BIOPSY (02/05/14) DISTAL ESOPHAGUS BX Cholecystectomy (~10/2001) Colonoscopy - MAC (~01/2014) EGD - IV Sedation (02/15/17) Endoscopy 02/15/17 [facility] Finger Surgery CYST REMOVAL;DR. YEPEZ; 03/17/17 History of Mike fundoplication Ligation of fallopian tube Medial Branch Block 10/12/16; PAIN CLINIC 1/24/17 Family History Mother , age 90 Diabetes Essential hypertension Heart disease Hyperlipidemia Breast cancer Father , age 78 Diabetes Essential hypertension Hyperlipidemia Lung cancer Brother Prostate cancer Hyperlipidemia Essential hypertension Asthma Sister , 59 Colon cancer Sister Diabetes Hyperlipidemia Sister No problems noted. Sister Asthma Sister Depression Brother Heart disease Brother Essential hypertension Hyperlipidemia Bladder cancer Son No problems noted. Daughter , 42 Diabetes Daughter No problems noted. Daughter No problems noted. Maternal Grandfather No problems noted. Paternal Grandfather No problems noted. Maternal Grandmother No problems noted. Paternal Grandmother No problems noted. Social History (Updated 12/02/20 @ 07:29 by Juliana Arrieta) Smoking/Tobacco Use Status: Never Smoking risk assessment performed?: Yes Alcohol Intake: current Alcohol Intake frequency: holidays/special occasions only Drug use: Never Substance use type: does not use Counseling given: No Counseling provided: none Caregiver/Support person: No Household members: none Housing: apartment Do you need help understanding health information?: Never Pets and animals: No Sexually active: No Do you think of yourself as: straight/heterosexual Current gender identity: female What is your relationship status?: How often do you talk on the phone with friends or family?: three or more times per week How often do you get together with friends or relatives?: three or more times per week How often do you attend holiness or roman catholic services?: decline to answer Do you belong to any clubs or organized social groups?: no Panel score (0-1 are the most socially isolated patients): 1 What type of physical activity do you participate in: decline to answer Duration: 15-30 minutes/day Frequency: 5-6 times per week Chloe/Sikh: Jainism Special chloe needs: No Seatbelt use: always Drive intox or ride w/intox 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 Pleasant, well groomed, interactive. HEAD: Normocephalic, atraumatic ENT: Mucous membranes moist, External ear exam unremarkable EXT: Full ROM,, motor is 5 out of 5 bilateral lower extremity. The left knee medial joint line is tender to palpation which is augmented with external rotation of the foot. Normal distal motor and sensory function, and 1+ DP bilaterally. Neuro: Grossly normal neurologic exam, conversant, interactive. Psych: Speech fluent, thoughts congruent, affect normal Course Vital Signs Vital signs: Vital Signs Temperature 36.8 C 06/01/21 16:24 Pulse 88 06/01/21 16:24 Respiratory Rate 18 06/01/21 16:24 Blood Pressure 171/82 H 06/01/21 16:24 Pulse Oximetry 97 06/01/21 16:24 Temperature 36.8 C 06/01/21 16:24 Temperature Source Temporal Artery Scan 06/01/21 16:24 Pulse 88 06/01/21 16:24 Respiratory Rate 18 06/01/21 16:24 Respiratory Effort 06/01/21 16:26 Blood Pressure 171/82 H 06/01/21 16:24 Blood Pressure Position Sitting 06/01/21 16:24 Pulse Oximetry 97 06/01/21 16:24 Pain Level 8 06/01/21 16:24
--- NOTE | 2021-06-01 17:21 | DI.VRAD_ITS ---
PROCEDURE INFORMATION: Exam: XR Left Knee Exam date and time: 06/01/2021 4:36 PM Age: 81 years old Clinical indication: Knee; Left; Patient HX: Pain, medial TECHNIQUE: Imaging protocol: XR Left knee. Views: 3 views. COMPARISON: No relevant prior studies available. FINDINGS: Bones/joints: No evidence for a fracture. Alignment is anatomic. There is mild medial compartment and patellofemoral compartment joint space narrowing. Soft tissues: Unremarkable. IMPRESSION: Medial and patellofemoral compartment arthropathy. No fracture identified. Dictated and Authenticated by: Flex Waddell MD. Ordering:RIC Galindo MD
[2021-06-01 17:59] VITALS: BP 171/82; PULSE 88; RESP 18; TEMP 36.8; O2SAT 97
== END 2021-06-01 18:04 | disposition home or self-care (01) ==
PROVIDERS: Emergency Provider Emergency Medicine
DX: M25.562 Pain in left knee (principal)
CPT/HCPCS: 73562; 99283

== ENCOUNTER → 2021-06-30 12:43 | Outpatient (BNVA) | payer MEDICARE, SELFPAY | PROVIDERS: Visit Provider Student in an Organized Health Care Education/Training Program | DX: M25.562 Pain in left knee (principal); M75.82 Other shoulder lesions, left shoulder; Z87.81 Personal history of (healed) traumatic fracture | CPT/HCPCS: 99213 ==

== ENCOUNTER 2021-07-06 12:45 | Outpatient (REF) | payer MEDICARE, SELFPAY ==
[2021-07-08 11:34] LABS: COVID-19 RT-PCR UVMMC Result Negative (Negative)
== END 2021-07-06 12:46 | disposition home or self-care (01) ==
LOC: LBN 12:45
PROVIDERS: Visit Provider Nurse Practitioner Family
DX: Z20.822 Contact with and (suspected) exposure to COVID-19 (principal)
CPT/HCPCS: U0003

== ENCOUNTER 2022-01-19 01:53 | Outpatient (CLI) | payer MEDICARE, SELFPAY ==
[2022-01-19 12:28] LABS: Iron 72 ug/dL (50-170)
[2022-01-19 12:41] LABS: ALT 25 U/L (14-59); AST 16 U/L (15-37); Albumin 3.7 g/dL (3.4-5.0); Alkaline Phosphatase 72 U/L (46-116); Anion Gap 7.7 mmol/L (3-11); BUN 28 mg/dL (7-18); Bilirubin, Total 0.6 mg/dL (0.2-1.0); CO2 28.3 mmol/L (21.0-32.0); CREATININE 0.8 mg/dL (0.55-1.02); Calcium 9.1 mg/dL (8.5-10.1); Calculated LDL 92 mg/dL (<100); Chloride 104 mmol/L (98-107); Cholesterol 180 mg/dL (<200); Ferritin 46 ng/mL (8-252); Glucose 93 mg/dL (74-106); HDL Cholesterol 70 mg/dL (40-60); Potassium 4.2 mmol/L (3.5-5.1); Sodium 140 mmol/L (136-145); Total Protein 6.6 g/dL (6.4-8.2); Triglyceride 93 mg/dL (<150)
== END 2022-01-19 01:54 | disposition home or self-care (01) ==
LOC: LOS 01:54
DX: D64.9 Anemia, unspecified (principal); E78.5 Hyperlipidemia, unspecified; I10 Essential (primary) hypertension
CPT/HCPCS: 36415; 80053; 80061; 82728; 83540

== ENCOUNTER 2022-03-13 22:19 | Inpatient (IN) | payer MEDICARE, SELFPAY ==
[2022-03-13 22:26] VITALS: BP 125/65; PULSE 82; RESP 19; TEMP 36.7; O2SAT 98
[2022-03-13 22:41] VITALS: RESP 19
--- NOTE | 2022-03-13 22:45 | RT.EKG_ITS ---
APPROVED REPORT Exam: Resting ECG Reason for Exam: chest pain Patient Location: E HR:73 bpm ECG Measurements Heart Rate 73 AXIS IA 155 P 39 QRSd 96 QRS 4 QT 389 T 17 QTc 427 Conclusion Sinus rhythm...normal P axis, V-rate 60- 99 Physician: Sinus rhythm, rate 73, less than 1 mm of J-point like elevation in V2, no other elevation. Minimal less than a millimeter depression in 2, 3, and aVF. No stemi.
--- NOTE | 2022-03-13 22:45 | DI.RAD_ITS ---
Exam(s) XR PORTABLE CHEST AP EXAM: XR PORTABLE CHEST AP CLINICAL HISTORY: sob, central chest pain. TECHNIQUE: 2D digital imaging was performed. COMPARISON: CR XR CHEST 2V PA LATERAL from 08/29/2019 FINDINGS: Single AP portable view. Mild cardiomegaly. The mediastinum is not widened. Pulmonary venous hypertension pattern. No airspace edema. No pleural effusions. No pneumothorax Reverse prosthesis right shoulder again noted IMPRESSION: Pulmonary venous hypertension pattern. Recommend nonportable PA and lateral views when clinically po ssible. DATA REPOSITORY: RADIATION DOSE DELIVERED: All CT scans at this facility use at least one of these dose optimization techniques: automated exposure control; mA and/or kV adjustment per patient size (includes targeted e xams where dose is matched to clinical indication); or iterative reconstruction.
[2022-03-13] MEDS: Normal Saline 250 ML IV (23:15)
[2022-03-13 23:20] LABS: Abs Immature Grans 0.03 10^3/uL (0.0-0.06); Absolute Basophil Count 0.05 10^3/uL (0.0-0.2); Absolute Eosinophil Count 0.04 10^3/uL (0.0-0.7); Absolute Lymphocyte Count 1.44 10^3/uL (1.2-3.4); Absolute Monocyte Count 0.74 10^3/uL (0.1-0.8); Basophils % 0.6; Eosinophils % 0.5; HCT 38.4 % (36.0-46.0); HGB 12.4 g/dL (11.2-15.7); Immature Grans % 0.3; Lymphocytes % 16.6; MCH 27.8 pg (27.0-33.0); MCHC 32.3 % (32.0-36.0); MCV 86 fL (80-95); MPV 10.4 fL (8.0-11.0); Monocytes % 8.5; Neutrophils % 73.5; Platelet Count 224 10^3/uL (130-400); RBC 4.46 10^6/uL (3.93-5.22); RDW-SD 44.2 fL
[2022-03-13 23:33] LABS: PTT Activated 25.2 sec (21.0-27.5); Prothrombin Time 10.2 sec (9.3-11.0)
[2022-03-13 23:44] LABS: ALT 23 U/L (14-59); AST 18 U/L (15-37); Albumin 3.4 g/dL (3.4-5.0); Alkaline Phosphatase 76 U/L (46-116); BUN 32 mg/dL (7-18); Bilirubin, Total 0.4 mg/dL (0.2-1.0); CREATININE 1.2 mg/dL (0.55-1.02); Calcium 8.9 mg/dL (8.5-10.1); Chloride 101 mmol/L (98-107); Estimated GFR 43.34 (mL/min/1.73m2); Glucose 160 mg/dL (74-106); NT-proBNP 312 pg/mL (<300); Potassium 3.8 mmol/L (3.5-5.1); Sodium 137 mmol/L (136-145); TSH (W/Ref FT4) 1.31 uIU/mL (0.36-3.74); Total Protein 6.6 g/dL (6.4-8.2)
[2022-03-13 23:45] LABS: Troponin I 796 ng/L (<or=60)
--- NOTE | 2022-03-13 23:45 | DI.CT_ITS ---
Exam(s) CT CHEST PE CTA EXAM: CT CHEST PE CTA CLINICAL HISTORY: elevated dimer, SOB, nstemi, eval PE/dissection. TECHNIQUE: Imaging Protocol: CT angiography of the chest was performed using pulmonary embolus corrina col. Multi planar reconstructions were performed. CONTRAST MATERIAL: Intravenous: Omnipaque 350 Contrast volume: 100 cc COMPARISON: CR,XR XR PORTABLE CHEST AP from 03/13/2022 FINDINGS: CHEST: PULMONARY ARTERIES: There are no intraluminal filling defects to suggest acute pulmonary emboli. LUNGS: There is a 5 millimeter calcified granuloma in the left lower lobe. No confluent infiltrates. No pleural effusions.. MEDIASTINUM: There is no hilar nor mediastinal adenopathy. Small-moderate size hiatal hernia noted-pa raesophageal. CARDIAC: Mild cardiomegaly. No pericardial effusion. Caliber thoracic aorta is within normal limits . There is no significant shift of the interventricular septum. PARTIALLY VISUALIZED UPPERMOST ABDOMEN: Renal cysts and/or hydronephrosis. Difficult to assess as on ly small part of the kidneys are included in the field of view here. OSSEOUS: No significant osseous lesions.. IMPRESSION: 1. No evidence of acute pulmonary emboli. No evidence of pulmonary infarction.No pleural effusions. 2. Hiatal hernia, possibly paraesophageal. 3. Mild cardiomegaly. No pericardial effusion. There is no shift of the interventricular septum. Kidney findings as above which can be further studied with ultrasound if clinically indicated. RADIATION DOSE DELIVERED: 383.88mGy.cm Total DLP DATA REPOSITORY: All CT scans at this facility are submitted to the National Radiology Data Registry (NRDR) Dose Index Registry (DIR) with the [employer] ([employer]). RADIATION OPTIMIZATION: All CT scans at this facility use at least one of these dose optimization te chniques: automated exposure control; mA and/or kV adjustment per patient size (includes targeted exa ms where dose is matched to clinical indication); or iterative reconstruction.
--- NOTE | 2022-03-13 23:47 | W.ED.GENAD ---
Discharge Plan Disposition Patient Disposition: [facility] INPATIENT Discharge Details Chief Complaint: GenMedical Clinical Impression: Non-ST elevation [place] (NSTEMI), Chest tightness Primary Care Provider: Kerrie Staples ED Provider: Manjinder Loaiza Home Meds and New Rx's Prescriptions: No Action cholecalciferol (vitamin D3) 25 mcg (1,000 unit) tablet 2,000 unit PO DAILY fluconazole 150 mg tablet 150 mg PO ONCE Qty: 1 0RF Rx Instructions: as a single dose protein shake See Rx Instructions .ROUTE .COMPLEX Rx Instructions: Drinks 1 Protein Shake Daily; calcium carbonate-vitamin D3 [Caltrate with Vitamin D3] 1 EACH tablet 1 ea PO DAILY Emergen-C 1,000 MG powder effervescent in packet 1,000 mg PO DAILY [id number] serr [Osteo Bi-Flex (5-Loxin)] 1 EACH tablet 1 tab PO DAILY hydrochlorothiazide 12.5 mg tablet 12.5 mg PO DAILY Qty: 90 4RF Hold Instructions: Home Medication placed on hold at Doctor's office lisinopril 20 mg tablet 20 mg PO DAILY Qty: 90 3RF omeprazole 20 mg capsule,delayed release(DR/EC) 20 mg PO DAILY Qty: 90 4RF pravastatin 20 mg tablet 20 mg PO DAILY Qty: 90 3RF clobetasol-emollient 0.05 % cream 1 applic Topical BID PRN (Reason: itching (vaginal)) Qty: 30 3RF acetaminophen [Tylenol Extra Strength] 500 mg Tablet 1,000 mg PO Q4H PRN Medical Decision Making This is a 81-year-old female with a past medical history of high cholesterol, hypertension, no family history of cardiac disease, who presents today for evaluation of syncope and chest tightness. Patient states that she just got back from a long trip to [facility]. She had a notable sunburn yesterday and felt off throughout the day. After the trip home she felt somewhat lightheaded, mildly short of breath and felt some mild chest tightness. At around 2 PM she had a brief episode of syncope while sitting down. It lasted about 2 to 5 seconds per her friend who is at bedside. Her fatigue and chest tightness/heaviness continued throughout the day. It was worse with going up steps, more exertion. She denies any significant chest pain though. She denies any tearing or ripping sensation. She presents tonight to the ER for persistence of her symptoms. She denies any numbness tingling or weakness otherwise. She denies any personal history of cardiac disease. She denies any personal history of blood clots. She does not take any supplemental estrogen. No other complaints at this time. No other modifying factors. Exam demonstrates a well-appearing female. She does complain of mild pressure but no pain in the chest. No calf tenderness, no significant pitting edema in the lower extremities. May be a very mild trace component of pitting edema in the very base, but otherwise no evidence of significant fluid overload. Bedside ultrasound was performed and heart appears very atypical in its positioning. Left ventricle appears somewhat dilated at the apex, however ejection fraction appears to be intact throughout otherwise. I was unable to get complete visualization of the heart secondary to the atypical positioning. Differential includes cardiac etiology including ACS. PE is of concern with her syncope and recent trip. We will get an EKG, monitor closely evaluate for these etiologies and reassess. 2 AM Laboratory work-up has returned, CBC is stable and unremarkable. D-dimer is notably elevated at 1750. Troponin elevated at 796. proBNP is stable. Thyroid function is normal. CTA was ordered shows no evidence of PE. Patient had no change in her symptoms after nitroglycerin subjectively, objectively she did have a slight transient decrease in her blood pressure with administration of nitro but otherwise remained stable. EKG shows no STEMI but does show some repolarization and ST depression. Patient was given aspirin and heparinized [facility] was contacted and I discussed the case with Dr. Ashby, he recommends 300 of Plavix as well, transfer to [facility]. Bed will likely open up tomorrow afternoon. Accepting physician is Dr. Toledo. We will keep the patient here at [facility] in the meantime. She remained stable, she continues to have no complaint of pain. Discussed the case with the hospitalist Dr. Chamorro, he agrees with the assessment and plan. I will place bridging admission orders on his behalf. He has come into the ER to assess the patient. I have extensively reviewed the treatment plan with the patient. I have addressed all patient concerns at this time. I have also discussed the plan with the admitting physician and they agree with the current assessment and plan and have agreed to assume responsibility for the patient. All parties demonstrate verbal understanding and agreement with our assessment and plan at this time. The documentation in this chart was dictated using [employer] dictation software. Please excuse any dictation errors. Additionally we did discuss with nursing staff, and they/nursing furnace process supervisor feel that the patient is appropriate for MedSurg with her heparin drip EKG 23: 01 Sinus rhythm, rate 73, less than 1 mm of J-point like elevation in V2, no other elevation. Minimal less than a millimeter depression in 2, 3, and aVF. No stemi. FINDINGS: Pulmonary arteries: No pulmonary artery filling defects. Aorta: No aortic aneurysm. Enhancement of aortic lumen suboptimal at the time of scan for evaluation of intraluminal abnormalities. Atherosclerotic calcifications. Lungs: Dependent subsegmental atelectasis and pulmonary vascular prominence calcified granulomas in each lung. Pleural spaces: No pneumothorax or pleural effusion. Heart: Cardiomegaly. No coronary artery calcification identified. No pericardial effusion. Heart RV/LV ratio: RV/LV ratio less than 1. Lymph nodes: Unremarkable. No enlarged lymph nodes. Diaphragm: Small to moderate sized hiatal hernia. Kidneys and ureters: 3.5 cm simple cyst left kidney. Moderate bilateral hydronephrosis and or parapelvic cysts. The kidneys are incompletely imaged on this study. Bones/joints: The spine demonstrates moderate degenerative changes at multiple levels. Soft tissues: Unremarkable. IMPRESSION: 1. No pulmonary artery embolism demonstrated. 2. No aortic aneurysm. 3. Suboptimal opacification of aortic lumen at time of scan, limits evaluation for intraluminal abnormalities. 4. Cardiomegaly. 5. Small to moderate size hiatal hernia. 6. Bilateral hydronephrosis cannot be excluded. Thank you for allowing us to participate in the care of your patient. Dictated and Authenticated by: Rosendo Burns DO 03/14/2022 12:53 AM Eastern Time ([place] & [place]) HPI General Date/Time Provider Initiated Documentation: 03/13/22 22:52. HPI Narrative: This is a 81-year-old female with a past medical history of high cholesterol, hypertension, no family history of cardiac disease, who presents today for evaluation of syncope and chest tightness. Patient states that she just got back from a long trip to [facility]. She had a notable sunburn yesterday and felt off throughout the day. After the trip home she felt somewhat lightheaded, mildly short of breath and felt some mild chest tightness. At around 2 PM she had a brief episode of syncope while sitting down. It lasted about 2 to 5 seconds per her friend who is at bedside. Her fatigue and chest tightness/heaviness continued throughout the day. It was worse with going up steps, more exertion. She denies any significant chest pain though. She denies any tearing or ripping sensation. She presents tonight to the ER for persistence of her symptoms. She denies any numbness tingling or weakness otherwise. She denies any personal history of cardiac disease. She denies any personal history of blood clots. She does not take any supplemental estrogen. No other complaints at this time. No other modifying factors. Related Data Home Medications Medication Instructions Recorded Confirmed calcium carbonate 600 mg-vitamin 1 ea PO DAILY 11/23/12 03/13/22 D3 20 mcg (800 unit) tablet (Caltrate with Vitamin D3) ascorbic acid 1,000 1,000 mg PO DAILY 11/02/17 02/17/22 [id number] powder effervescent pack (Emergen-C) glucosamine [id number] 1 tab PO DAILY 11/02/17 03/13/22 yinka 1,500 mg-400 unit-100 mg tablet (Osteo Bi-Flex (5-Loxin)) acetaminophen 500 mg tablet 1,000 mg PO Q4H PRN 06/20/19 03/13/22 (Tylenol Extra Strength) protein shake See Rx Instructions .Route .COMPLEX 11/17/20 02/17/22 hydrochlorothiazide 12.5 mg tablet 12.5 mg PO DAILY #90 tab-caps 10/09/21 03/13/22 lisinopril 20 mg tablet 20 mg PO DAILY #90 tab-caps 10/09/21 03/13/22 omeprazole 20 mg capsule,delayed 20 mg PO DAILY #90 tab-caps 10/09/21 03/13/22 release pravastatin 20 mg tablet 20 mg PO DAILY #90 tab-caps 10/09/21 03/13/22 clobetasol-emollient 0.05 % 1 applic topical BID PRN itching 12/21/21 03/13/22 topical cream (vaginal) #30 grams cholecalciferol (vitamin D3) 25 2,000 unit PO DAILY 01/12/22 03/13/22 mcg (1,000 unit) tablet fluconazole 150 mg tablet 150 mg PO ONCE #1 tab 02/17/22 03/13/22 Previous Rx's Medication Instructions Recorded hydrochlorothiazide 12.5 mg tablet 12.5 mg PO DAILY #90 tab-caps 10/09/21 lisinopril 20 mg tablet 20 mg PO DAILY #90 tab-caps 10/09/21 omeprazole 20 mg capsule,delayed 20 mg PO DAILY #90 tab-caps 10/09/21 release pravastatin 20 mg tablet 20 mg PO DAILY #90 tab-caps 10/09/21 clobetasol-emollient 0.05 % 1 applic topical BID PRN itching 12/21/21 topical cream (vaginal) #30 grams fluconazole 150 mg tablet 150 mg PO ONCE #1 tab 02/17/22 Allergies Allergy/AdvReac Type Severity Reaction Status Date / Time oxycodone HCl [From Percocet] AdvReac Intermediate GI, Verified 03/13/22 22:29 Headache, Nausea codeine AdvReac Mild Upset Verified 03/13/22 22:29 Stomach General Stated Complaint: GenMedical REBA: 3 Review of Systems All systems reviewed & are unremarkable except as noted in HPI and below PFSH All Active Problems (Updated 03/14/22 @ 02:56 by Manjinder Loaiza DO) Non-ST elevation [place] (NSTEMI) (Acute) Chest tightness (Acute) Medical History Actinic keratosis Anemia Gordon's esophagus EGD 02/05/14 - F/U 3 years [facility] egd 2016 Bilateral low back pain without sciatica (05/13/16) Closed fracture of proximal end of right humerus (06/11/19) Essential hypertension (10/02/13) Family history of colon cancer (02/05/10) father Hiatal hernia History of postoperative nausea and vomiting Hyperlipidemia Left medial knee pain Lichen planus on rt [place] Osteopenia Rosacea Spondylosis of lumbar region without myelopathy or radiculopathy Traumatic closed displaced fracture of proximal end of left humerus with routine healing (01/03/18) 01/03/18 Varicose veins of lower extremity Vitiligo Yeast vaginitis Surgical History Appendectomy no date given BIOPSY (02/05/14) DISTAL ESOPHAGUS BX Cholecystectomy (~10/2001) Colonoscopy - MAC (~01/2014) EGD - IV Sedation (02/15/17) Endoscopy 02/15/17 [facility] Finger Surgery CYST REMOVAL;DR. YEPEZ; 03/17/17 History of Mike fundoplication Ligation of fallopian tube Medial Branch Block 10/12/16; PAIN CLINIC 10/12/16 S/P colonoscopic polypectomy (~05/2020) Dr. Nemesio Argueta ? F/U Family History Mother , age 90 Diabetes Essential hypertension Heart disease Hyperlipidemia Breast cancer Father , age 78 Diabetes Essential hypertension Hyperlipidemia Lung cancer Brother Prostate cancer Hyperlipidemia Essential hypertension Asthma Sister , 59 Colon cancer Sister Diabetes Hyperlipidemia Sister No problems noted. Sister Asthma Sister Depression Brother Heart disease Brother Essential hypertension Hyperlipidemia Bladder cancer Son No problems noted. Daughter , 42 Diabetes Daughter No problems noted. Daughter No problems noted. Maternal Grandfather No problems noted. Paternal Grandfather No problems noted. Maternal Grandmother No problems noted. Paternal Grandmother No problems noted. Social History Smoking/Tobacco Use Status: Never Smoking risk assessment performed?: Yes Alcohol Intake: current Alcohol Intake frequency: holidays/special occasions only Drug use: Never Substance use type: does not use Counseling given: No Counseling provided: none Caregiver/Support person: No Household members: none Housing: apartment Do you need help understanding health information?: Never Pets and animals: No Sexually active: No Do you think of yourself as: straight/heterosexual Current gender identity: female What is your relationship status?: How often do you talk on the phone with friends or family?: three or more times per week How often do you get together with friends or relatives?: three or more times per week How often do you attend christianity or faith services?: decline to answer Do you belong to any clubs or organized social groups?: no Panel score (0-1 are the most socially isolated patients): 1 What type of physical activity do you participate in: decline to answer Duration: 15-30 minutes/day Frequency: 5-6 times per week Chloe/Holiness: Catholic Special chloe needs: No Seatbelt use: always Drive intox or ride w/intox deliver driver: No Do you feel safe at home: Yes Do you feel safe in your relationship?: Yes Female Reproductive History Menstrual Age of Menarche: 16 History History 4 Para 4 Hx # Term Pregnancies 4 Multiple births Hx # Pregnancies Ectopic pregnancies AB induced Hx Number of Living Children 4 AB spontaneous Past Pregnancies Del. Date GA/Weeks # Preg Succ Route Wgt Sex Labor Lgth Anesthesia Location Prov Complic 04/16/1961 vaginal Female 12/03/1963 vaginal Male 12/26/1968 vaginal Female 07/19/71 vaginal Female Exam Narrative Exam Narrative: 1.Const: Well-nourished, Well-developed, appearing stated age 2.Eyes: PERRL, no conjunctival injection, and symmetrical lids. 3.ENT: Atraumatic external nose and ears. Moist MM. Neck: Symmetric, trachea midline, No thyromegaly. 4.CVS: +S1/S2, No murmurs or gallops. Peripheral pulses 2+ and equal in all extremities. Brisk capillary refill in all extremities. 5.RESP: Unlabored respiratory effort. Clear to auscultation bilaterally. No wheezes rales or rhonchi 6.GI: Soft, Nontender/Nondistended, No hepatosplenomegaly. No guarding or rebound. 7.MSK: Normocephalic/Atraumatic, Extremities w/o deformity or ttp No cyanosis or clubbing, Normal movement of all extremities, no calf tenderness or pitting edema 8.Skin: Warm, Dry. No rashes or lesions. 9.Neuro: hot worker II-XII grossly intact. Sensation grossly intact, no focal neurologic deficits. 10.Psych: (AAO) x3. Appropriate mood and affect Course Vital Signs Vital signs: Vital Signs Temperature 36.7 C 03/13/22 22:26 Pulse 82 03/13/22 22:26 Respiratory Rate 19 03/13/22 22:26 Blood Pressure 125/65 03/13/22 22:26 Pulse Oximetry 98 03/13/22 22:26 Temperature 36.7 C 03/13/22 22:26 Temperature Source Oral 03/13/22 22:26 Pulse 82 03/13/22 22:26 Respiratory Rate 19 03/13/22 22:41 Respiratory Effort 03/13/22 22:41 Respiratory Depth Normal 03/13/22 22:41 Respiratory Pattern Normal 03/13/22 22:41 Blood Pressure 125/65 03/13/22 22:26 Blood Pressure Position Sitting 03/13/22 22:26 Pulse Oximetry 98 03/13/22 22:26 Oxygen Delivery Method Room Air 03/13/22 22:26 Oxygen Flow Rate 0 03/13/22 22:26 Pain Level 2 03/13/22 22:26 Lab/Test Results Lab/Test Results: Laboratory Tests Range/Units 03/13/22 03/13/22 03/13/22 23:09 23:09 23:09 WBC (4.4-10.8) 10^3/uL 8.70 RBC (3.93-5.22) 10^6/uL 4.46 Hgb (11.2-15.7) g/dL 12.4 Hct (36.0-46.0) % 38.4 MCV (80-95) fL 86 MCH (27.0-33.0) pg 27.8 MCHC (32.0-36.0) % 32.3 RDW (11.7-14.6) % 14.0 Plt Count (130-400) 10^3/uL 224 MPV (8.0-11.0) fL 10.4 Immature Gran % 0.3 Neutrophils % 73.5 Lymphocytes % 16.6 Monocytes % 8.5 Eosinophils % 0.5 Basophils % 0.6 Nucleated RBC % (0.0-0.3) % 0.0 Absolute Neutrophils (1.2-6.7) 10^3/uL 6.40 Absolute Lymphocytes (1.2-3.4) 10^3/uL 1.44 Absolute Monocytes (0.1-0.8) 10^3/uL 0.74 Absolute Eosinophils (0.0-0.7) 10^3/uL 0.04 Absolute Basophils (0.0-0.2) 10^3/uL 0.05 PT (9.3-11.0) sec 10.2 INR (0.9-1.1) 1.0 APTT (21.0-27.5) sec 25.2 Sodium (136-145) mmol/L 137 Potassium (3.5-5.1) mmol/L 3.8 Chloride (98-107) mmol/L 101 Carbon Dioxide (21.0-32.0) mmol/L 26.0 Anion Gap (3-11) mmol/L 10.0 BUN (7-18) mg/dL 32 H Creatinine (0.55-1.02) mg/dL 1.2 H Estimated GFR/1.73 m2 (mL/min/1.73m2) 43.34 Glucose (74-106) mg/dL 160 H Calcium (8.5-10.1) mg/dL 8.9 Total Bilirubin (0.2-1.0) mg/dL 0.4 AST (15-37) U/L 18 ALT (14-59) U/L 23 Alkaline Phosphatase (46-116) U/L 76 Troponin I (<or=60) ng/L 796 H* NT-Pro-B Natriuret Pep (<300) pg/mL 312 H Total Protein (6.4-8.2) g/dL 6.6 Albumin (3.4-5.0) g/dL 3.4 TSH (0.36-3.74) uIU/mL 1.31 Critical Care Time Critical Care Time Critical Care Time: Yes Total Critical Care Time: 30 Attestation: Upon my evaluation, this patient had a high probability of imminent or life-threatening deterioration, which required my direct attention, intervention, and personal management. I have personally provided 30 minutes of critical care time exclusive of time spent on separately billable procedures. Time includes review of laboratory data, radiology results, discussion with consultants, and monitoring for potential decompensation. Interventions were performed as documented.
[2022-03-13 23:48] LABS: D-Dimer 1749 ng/mlFEU (<500)
[2022-03-13] MEDS: Aspirin 81 MG CHEW 324 MG CH (23:55)
[2022-03-13] MEDS: nitroGLYcerin 0.4 MG TAB SL (23:55)
[2022-03-14] VITALS (58 sets, daily range): BP systolic 96–119; BP diastolic 60–77; PULSE 70–93; RESP 13–24; TEMP 36.1–37.4; O2SAT 94–96
[2022-03-14] MEDS: Omnipaque 350 MG/ML 100 ML BTL IJ (00:33)
--- NOTE | 2022-03-14 00:42 | DI.VRAD_ITS ---
PROCEDURE INFORMATION: Exam: XR Chest Exam date and time: 03/13/2022 11:27 PM Age: 81 years old Clinical indication: Other: SOB, central chest pain TECHNIQUE: Imaging protocol: Radiologic exam of the chest. Views: 1 view. COMPARISON: CR XR CHEST 2V PA LATERAL 08/29/2019 11:01 AM, reviewed in conjunction with concurrent CT examination of chest FINDINGS: Lungs: There is at least minimal pulmonary vascular and interstitial prominence. No parenchymal consolidation. Pleural spaces: Unremarkable. No pleural effusion. No pneumothorax. Heart/Mediastinum: Cardiomegaly. Bones/joints: Degenerative changes. Status post reverse right shoulder replacement. Healed fracture proximal left humerus IMPRESSION: 1. Minimal pulmonary vascular congestion. 2. Cardiomegaly. Dictated and Authenticated by: Rosendo Burns MD. Ordering:ABENA Dunbar MD
--- NOTE | 2022-03-14 00:54 | DI.VRAD_ITS ---
PROCEDURE INFORMATION: Exam: CTA Chest With Contrast Exam date and time: 03/14/2022 12:06 AM Age: 81 years old Clinical indication: Other: Elevated ddimer, SOB, nstemi, eval pe/ disection TECHNIQUE: Imaging protocol: Computed tomographic angiography of the chest with contrast. 3D rendering (Not supervised by radiologist): MIP and/or 3D reconstructed images were created by the technologist. Contrast material: 350; Contrast volume: 68 ml; Contrast route: INTRAVENOUS (IV); COMPARISON: CR XR PORTABLE CHEST AP 03/13/2022 11:27 PM FINDINGS: Pulmonary arteries: No pulmonary artery filling defects. Aorta: No aortic aneurysm. Enhancement of aortic lumen suboptimal at the time of scan for evaluation of intraluminal abnormalities. Atherosclerotic calcifications. Lungs: Dependent subsegmental atelectasis and pulmonary vascular prominence calcified granulomas in each lung. Pleural spaces: No pneumothorax or pleural effusion. Heart: Cardiomegaly. No coronary artery calcification identified. No pericardial effusion. Heart RV/LV ratio: RV/LV ratio less than 1. Lymph nodes: Unremarkable. No enlarged lymph nodes. Diaphragm: Small to moderate sized hiatal hernia. Kidneys and ureters: 3.5 cm simple cyst left kidney. Moderate bilateral hydronephrosis and or parapelvic cysts. The kidneys are incompletely imaged on this study. Bones/joints: The spine demonstrates moderate degenerative changes at multiple levels. Soft tissues: Unremarkable. IMPRESSION: 1. No pulmonary artery embolism demonstrated. 2. No aortic aneurysm. 3. Suboptimal opacification of aortic lumen at time of scan, limits evaluation for intraluminal abnormalities. 4. Cardiomegaly. 5. Small to moderate size hiatal hernia. 6. Bilateral hydronephrosis cannot be excluded. Dictated and Authenticated by: Rosendo Burns MD. Ordering:ABENA Dunbar MD
[2022-03-14 01:37] LABS: Source Nasal/Nares
[2022-03-14] MEDS: Clopidogrel 300 MG TAB PO (01:41)
[2022-03-14 02:29] LABS: COVID-19 PCR Negative (Negative)
[2022-03-14 03:18] LABS: Troponin I 920 ng/L (<or=60)
--- NOTE | 2022-03-14 04:15 | W.PM.HP.N ---
Date of service: 03/14/22 Time of Service: 03:00 Assessment and Plan Assessment and plan (1) Non-ST elevation [place] (NSTEMI): Status: Acute Assessment and plan: Symptoms, EKG, and troponins consistent with ACS/NSTEMI. Case and EKG reviewed with [facility] [place], who agree with plan and accept patient for transfer pending bed availability. She is currently on heparin drip and has been loaded with aspirin and clopidogrel. Metoprolol recommended but not started with soft blood pressures, follow Imaging with cardiomegaly, POCUS suggests reduced LVEF. Defer formal echo to [facility] if she transfers today. Hold off on diuresis, but monitor fluid status. (2) Gordon's esophagus: Assessment and plan: SHe is on PPI chronically. Change to pantoprazole given clopidogrel use. 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 Would like to introduce metoprolol given NSTEMI when blood pressures come back up. (4) Yeast vaginitis: Assessment and plan: If symptomatic, can use topical azoles. (5) DVT prophylaxis: Status: Acute Assessment and plan: on full dose heparin (6) Discharge planning issues: Status: Acute Assessment and plan: Full Code. Pending transfer to [facility] for cardiac catheterization when bed available. History of Present Illness History of Present Illness Chief Complaint: chest tightness Narrative: 81 yo F with history of hypertension and hyperlipidemia presenting with persistent mild chest tightness after very brief syncopal event around 4:30pm on the day prior to admission . Review of Systems Constitutional Constitutional: Denies anorexia, Denies chills, Denies fever(s), Reports headache(s) (a little posterior headache since arriving), Reports lethargy and Denies weakness Eyes Eyes: Denies change in vision and Denies irritation ENT Ears, Nose, Mouth, and Throat: Denies change in voice, Denies dysphagia, Reports headache(s) (a little posterior headache since arriving), Denies nasal congestion, Denies nasal discharge and Denies sore throat Cardiovascular Cardiovascular: Denies palpitations and Denies orthopnea Respiratory Respiratory: Denies cough, Denies excessive phlegm production and Denies wheezing Gastrointestinal Gastrointestinal: Denies abdominal pain, Denies melena, Denies hematochezia, Denies change in stool character, Denies dysphagia, Denies heartburn, Denies diarrhea and Denies vomiting Genitourinary Genitourinary: Denies hematuria, Denies dysuria and Denies urinary incontinence Comments: has had some vaginal itching recently, saw [facility] and using antifungal off/on which helps Integumentary/Breasts Skin/Breast: Denies rash and Denies skin ulcer Neurologic Neurologic: Reports headache(s) (a little posterior headache since arriving), Denies sensory deficit and Denies weakness Psychiatric Psychiatric: Denies mood swings and Denies panic attacks Endocrine Endocrine: Denies palpitations Hematologic/Lymphatic Hematologic/Lymphatic: Denies easy bleeding Allergic/Immunologic Allergic/Immunologic: Denies wheezing PFSH All Active Problems Discharge planning issues (Acute) DVT prophylaxis (Acute) Non-ST elevation [place] (NSTEMI) (Acute) Chest tightness (Acute) Medical History Actinic keratosis Gordon's esophagus EGD 02/05/14 - F/U 3 years [facility] egd 2016 Bilateral low back pain without sciatica (05/13/16) Closed fracture of proximal end of right humerus (06/11/19) Essential hypertension (10/02/13) Family history of colon cancer (02/05/10) father Hiatal hernia History of postoperative nausea and vomiting Hyperlipidemia Left medial knee pain Lichen planus on rt [place] Osteopenia Rosacea Spondylosis of lumbar region without myelopathy or radiculopathy Traumatic closed displaced fracture of proximal end of left humerus with routine healing (01/03/18) 01/03/18 Varicose veins of lower extremity Vitiligo Yeast vaginitis Surgical History Appendectomy no date given BIOPSY (02/05/14) DISTAL ESOPHAGUS BX Cholecystectomy (~10/2001) Colonoscopy - MAC (~01/2014) EGD - IV Sedation (02/15/17) Endoscopy 02/15/17 [facility] Finger Surgery CYST REMOVAL;DR. YEPEZ; 03/17/17 History of Mike fundoplication Ligation of fallopian tube Medial Branch Block 10/12/16; PAIN CLINIC 10/12/16 S/P colonoscopic polypectomy (~05/2020) Dr. Nemesio Argueta ? F/U Family History Mother , age 90 Diabetes Essential hypertension Heart disease Hyperlipidemia Breast cancer Father , age 78 Diabetes Essential hypertension Hyperlipidemia Lung cancer Brother Prostate cancer Hyperlipidemia Essential hypertension Asthma Sister , 59 Colon cancer Sister Diabetes Hyperlipidemia Sister No problems noted. Sister Asthma Sister Depression Brother Heart disease Brother Essential hypertension Hyperlipidemia Bladder cancer Son No problems noted. Daughter , 42 Diabetes Daughter No problems noted. Daughter No problems noted. Maternal Grandfather No problems noted. Paternal Grandfather No problems noted. Maternal Grandmother No problems noted. Paternal Grandmother No problems noted. Social History Smoking/Tobacco Use Status: Never Smoking risk assessment performed?: Yes Alcohol Intake: current Alcohol Intake frequency: holidays/special occasions only Drug use: Never Substance use type: does not use Counseling given: No Counseling provided: none Caregiver/Support person: No Household members: none Housing: apartment Do you need help understanding health information?: Never Pets and animals: No Sexually active: No Do you think of yourself as: straight/heterosexual Current gender identity: female What is your relationship status?: How often do you talk on the phone with friends or family?: three or more times per week How often do you get together with friends or relatives?: three or more times per week How often do you attend religion or restorationist services?: decline to answer Do you belong to any clubs or organized social groups?: no Panel score (0-1 are the most socially isolated patients): 1 What type of physical activity do you participate in: decline to answer Duration: 15-30 minutes/day Frequency: 5-6 times per week Chloe/Yazdanism: Catholic Special chloe needs: No Seatbelt use: always Drive intox or ride w/intox furniture delivery driver: No Do you feel safe at home: Yes Do you feel safe in your relationship?: Yes Female Reproductive History Menstrual Age of Menarche: 16 History History 4 Para 4 Hx # Term Pregnancies 4 Multiple births Hx # Pregnancies Ectopic pregnancies AB induced Hx Number of Living Children 4 AB spontaneous Past Pregnancies Del. Date GA/Weeks # Preg Succ Route Wgt Sex Labor Lgth Anesthesia Location Prov Complic 04/16/1961 vaginal Female 12/03/1963 vaginal Male 12/26/1968 vaginal Female 07/19/71 vaginal Female Meds Allergies and Home Medications Allergies Allergy/AdvReac Type Severity Reaction Status Date / Time oxycodone HCl [From Percocet] AdvReac Intermediate GI, Verified 03/13/22 22:29 Headache, Nausea codeine AdvReac Mild Upset Verified 03/13/22 22:29 Stomach Home Medications Medication Instructions Recorded Confirmed Type calcium carbonate 600 mg-vitamin 1 ea PO DAILY 11/23/12 03/13/22 History D3 20 mcg (800 unit) tablet (Caltrate with Vitamin D3) ascorbic acid 1,000 1,000 mg PO DAILY 11/02/17 02/17/22 History ls-nfravwmzabzt-oduxvusc powder effervescent pack (Emergen-C) glucosamine [id number] 1 tab PO DAILY 11/02/17 03/13/22 History yinka 1,500 mg-400 unit-100 mg tablet (Osteo Bi-Flex (5-Loxin)) acetaminophen 500 mg tablet 1,000 mg PO Q4H PRN 06/20/19 03/13/22 History (Tylenol Extra Strength) protein shake See Rx Instructions .Route .COMPLEX 11/17/20 02/17/22 History hydrochlorothiazide 12.5 mg tablet 12.5 mg PO DAILY #90 tab-caps 10/09/21 03/13/22 Rx lisinopril 20 mg tablet 20 mg PO DAILY #90 tab-caps 10/09/21 03/13/22 Rx omeprazole 20 mg capsule,delayed 20 mg PO DAILY #90 tab-caps 10/09/21 03/13/22 Rx release pravastatin 20 mg tablet 20 mg PO DAILY #90 tab-caps 10/09/21 03/13/22 Rx clobetasol-emollient 0.05 % 1 applic topical BID PRN itching 12/21/21 03/13/22 Rx topical cream (vaginal) #30 grams cholecalciferol (vitamin D3) 25 2,000 unit PO DAILY 01/12/22 03/13/22 History mcg (1,000 unit) tablet fluconazole 150 mg tablet 150 mg PO ONCE #1 tab 02/17/22 03/13/22 Rx Exam Narrative Exam Narrative: GEN: Alert and oriented, pleasant and cooperative, appears younger than stated age, gives linear history. No acute distress at rest. HEENT: Head atraumatic. Conjunctiva clear, no icterus. PEERL, EOMI. no rhinorrhea. MMM, OP benign. Neck is supple with no masses or lymphadenopathy, trachea midline. I cannot appreciate JVP elevation. Carotid pulses 2+ bilaterally LUNGS: CTAB except slight rales omer bases, mostly clear with deep breath. Normal effort lying in bed. CV: RRR with no murmurs, gallops, or rubs. ABD: +BS, soft, NT/ND EXT: no cyanosis, clubbing, or edema. Legs not tender to palpation MSK: No joint redness or swelling NEURO: CN 2-12 grossly intact. Normal movement of 4 extremities. Normal speech and coordination. no tremor SKIN: No rashs or open wounds. sun exposed skin red, no blisters noted. PSYCH: normal mood and affect, nl thought process Results Imaging Chest x-ray: report reviewed (IMPRESSION: 1. Minimal pulmonary vascular congestion. 2. Cardiomegaly.) and image reviewed CT scan - chest: report reviewed (IMPRESSION: 1. No pulmonary artery embolism demonstrated. 2. No aortic aneurysm. 3. Suboptimal opacification of aortic lumen at time of scan, limits evaluation for intraluminal abnormalities. 4. Cardiomegaly. 5. Small to moderate size hiatal hernia. 6. Bilateral hydronephrosis cannot be excluded.) EKG: report reviewed and image reviewed (NSR, nl axis, intervals. Slight <1mm ST elevation V1, V2, aVL; depression <1mm in V3-6) Labs Result diagrams: 03/13/22 23:09 03/13/22 23:09 Labs: Laboratory Results - last 24 hr 03/13/22 03/13/22 03/13/22 23:09 23:09 23:09 WBC 8.70 RBC 4.46 Hgb 12.4 Hct 38.4 MCV 86 MCH 27.8 MCHC 32.3 RDW 14.0 Plt Count 224 MPV 10.4 Immature Gran % 0.3 Neutrophils % 73.5 Lymphocytes % 16.6 Monocytes % 8.5 Eosinophils % 0.5 Basophils % 0.6 Nucleated RBC % 0.0 Absolute Neutrophils 6.40 Absolute Lymphocytes 1.44 Absolute Monocytes 0.74 Absolute Eosinophils 0.04 Absolute Basophils 0.05 PT 10.2 INR 1.0 APTT 25.2 D-Dimer 1749 H Sodium 137 Potassium 3.8 Chloride 101 Carbon Dioxide 26.0 Anion Gap 10.0 BUN 32 H Creatinine 1.2 H Estimated GFR/1.73 m2 43.34 Glucose 160 H Calcium 8.9 Total Bilirubin 0.4 AST 18 ALT 23 Alkaline Phosphatase 76 Troponin I 796 H* NT-Pro-B Natriuret Pep 312 H Total Protein 6.6 Albumin 3.4 TSH 1.31 COVID-19 Source SARS-CoV-2 (PCR) 03/14/22 03/14/22 01:32 02:52 WBC RBC Hgb Hct MCV MCH MCHC RDW Plt Count MPV Immature Gran % Neutrophils % Lymphocytes % Monocytes % Eosinophils % Basophils % Nucleated RBC % Absolute Neutrophils Absolute Lymphocytes Absolute Monocytes Absolute Eosinophils Absolute Basophils PT INR APTT D-Dimer Sodium Potassium Chloride Carbon Dioxide Anion Gap BUN Creatinine Estimated GFR/1.73 m2 Glucose Calcium Total Bilirubin AST ALT Alkaline Phosphatase Troponin I 920 H* NT-Pro-B Natriuret Pep Total Protein Albumin TSH COVID-19 Source Nasal/Nares SARS-CoV-2 (PCR) Negative Last Vital Signs Temp 36.3 C L 03/14/22 03:45 Pulse 82 03/14/22 03:45 Resp 18 03/14/22 03:45 BP 119/73 03/14/22 03:45 Pulse Ox 96 03/14/22 03:45
[2022-03-14 07:12] LABS: PTT Activated 74.7 sec (21.0-27.5)
[2022-03-14 07:39] LABS: Troponin I 915 ng/L (<or=60)
[2022-03-14] MEDS: Pantoprazole 40 MG TABCR PO (07:50)
[2022-03-14] MEDS: Aspirin 81 MG CHEW PO (07:50)
[2022-03-14] MEDS: Clopidogrel 75 MG TAB PO (07:50)
[2022-03-14] MEDS: Cholecalciferol (Vitamin D3) 1,000 UNIT TAB 2000 UNITS PO (07:50)
[2022-03-14 08:00] LABS: Anion Gap 5.3 mmol/L (3-11); BUN 34 mg/dL (7-18); CO2 26.7 mmol/L (21.0-32.0); CREATININE 0.8 mg/dL (0.55-1.02); Calcium 8.7 mg/dL (8.5-10.1); Calculated LDL 73 mg/dL (<100); Chloride 103 mmol/L (98-107); Cholesterol 159 mg/dL (<200); Glucose 95 mg/dL (74-106); HDL Cholesterol 73 mg/dL (40-60); Sodium 135 mmol/L (136-145); Triglyceride 65 mg/dL (<150)
--- NOTE | 2022-03-14 08:00 | RT.EKG_ITS ---
APPROVED REPORT Exam: Resting ECG Reason for Exam: chest pain Patient Location: I HR:91 bpm ECG Measurements Heart Rate 91 AXIS NJ 151 P 50 QRSd 95 QRS 18 QT 363 T 47 QTc 447 Conclusion Sinus rhythm...normal P axis, V-rate 50- 99 Multiple ventricular premature complexes...V complexes w/ short R-R intervls Probable left atrial enlargement...P >50mS, <-0.10mV V1
[2022-03-14] MEDS: nitroGLYcerin 0.4 MG TAB SL (08:17)
[2022-03-14] MEDS: Acetaminophen 500 MG TAB 1000 MG PO (09:04)
[2022-03-14] MEDS: Mylanta Suspension 30 ML CUP PO (09:06)
--- NOTE | 2022-03-14 10:16 | INITIAL_ITS ---
- If Service Date Differs Date of service: 03/14/22 Time of Service: 10:16 Care Management Initial Assess REASON FOR HOSPITALIZATION:: NSTEMI. PAST MEDICAL HISTORY/PAST SURGICAL HISTORY:: All Active Problems: Discharge planning issues (Acute), DVT prophylaxis (Acute), Non-ST elevation [place] (NSTEMI) (Acute), and Chest tightness (Acute). Medical History: Actinic keratosis, Gordon's esophagus - EGD 02/05/14 - F/U 3 years - [facility] - egd 2016, Bilateral low back pain without sciatica (05/13/16), Closed fracture of proximal end of right humerus (06/11/19), Essential hypertension (10/02/13), Family history of colon cancer (02/05/10) - father, Hiatal hernia, History of postoperative nausea and vomiting, Hyperlipidemia, Left medial knee pain, Lichen planus - on rt [place], Osteopenia, Rosacea, Spondylosis of lumbar region without myelopathy or radiculopathy, Traumatic closed displaced fracture of proximal end of left humerus with routine healing (01/03/18), Varicose veins of lower extremity, Vitiligo, and Yeast vaginitis. Surgical History: Appendectomy - no date given, BIOPSY (02/05/14) -. DISTAL ESOPHAGUS BX, Cholecystectomy (~10/2001), Colonoscopy - MAC (~01/2014), EGD - IV Sedation (02/15/17), Endoscopy - 02/15/17 [place],. Finger Surgery - CYST REMOVAL;DR. YEPEZ; 03/17/17, History of Mike fundoplication, Ligation of fallopian tube, Medial Branch Block -. 10/12/16; PAIN CLINIC 10/12/16, and S/P colonoscopic polypectomy (~05/2020) - Dr. Herr - [place] ? F/U. PREVIOUS FUNCTIONAL STATUS/SOCIAL/FAMILY SUPPORTS:: Maite lives alone in an apartment in [place], [place]. 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 Maite has a large supportive family consisting of several siblings, a son and a daughter. Maite shares that she had a second daughter who at the age of 42 due to complications of diabetes. Maite is independent at baseline but she no longer drives. CURRENT FUNCTIONAL STATUS:: Maite is lying in bed when comes to meet with her. She is pleasant and easily engages in conversation. She talks about the events that resulted in her coming to the emergency room and says the plan is for her to transfer to [facility] this afternoon. ADVANCE DIRECTIVES:: On file; daughter Juliana Hines is appointed as Health Care Agent. Has patient been provided with info about the portal/API?: Yes Did the patient sign up for the portal?: Yes (Previously enrolled.) CODE STATUS:: Full Code INSURANCE COVERAGE / FINANCIAL ISSUES:: AARP ReserveOut and Medicare. CURRENT HOME/COMMUNITY SERVICES/EQUIPMENT:: No current services or equipment. PRIMARY CARE PHYSICIAN:: Kerrie Staples aprn ([facility]). POTENTIAL DISCHARGE NEEDS:: Follow up appointments with PCP and [facility] cardiology. PATIENT/FAMILY EDUCATION NEEDS:: Review of discharge instructions and discuss Ask Me Three. ANTICIPATED BARRIERS TO DISCHARGE:: No anticipated barriers at this time. TRANSPORTATION:: Via EMS. PLAN:: Per provider, Maite is accepted for transfer to [facility]. She will transport via ambulance.
[2022-03-14 11:29] LABS: HCT 34.9 % (36.0-46.0); HGB 11.5 g/dL (11.2-15.7); MCH 28.3 pg (27.0-33.0); MCV 86 fL (80-95); MPV 10.5 fL (8.0-11.0); Platelet Count 201 10^3/uL (130-400); RBC 4.07 10^6/uL (3.93-5.22); RDW 14.1 % (11.7-14.6); RDW-SD 43.8 fL; WBC 8.49 10^3/uL (4.4-10.8)
[2022-03-14 11:48] LABS: Troponin I 789 ng/L (<or=60)
--- NOTE | 2022-03-14 11:58 | W.PM.DS.N ---
Date of service: 03/14/22 Time of Service: 11:58 DS: Diagnosis Discharge Diagnosis (1) Non-ST elevation [place] (NSTEMI): Status: Acute (2) Gordon's esophagus: (3) Essential hypertension: (4) Sunburn: Status: Acute (5) Left shoulder pain: Status: Acute (6) Yeast vaginitis: (7) Atelectasis: Status: Acute (8) Lung granuloma: Status: Acute (9) Bilateral hydronephrosis: Status: Suspected Discharge Plan Disposition Patient Disposition: [facility] Condition: Stable Discharge Details Reason For Visit: nstemi Admit Date/Time: 03/14/22 01:50 Admit Provider: Karsten Arita Attending Provider: Karsten Arita Primary Care Provider: Kerrie Staples Hospital Course Hospital Course: Ms Tomlin is a 81 year old female with PMHx of hypertension, hyperlipidemia, Gordon's esophagus, chronic L shoulder pain, who was a patient on [facility] hospitalist service on 03/14/22 while awaiting a bed on [facility] cardiology service, having presented with chest pain/tightness and being diagnosed with an NSTEMI. The patient had reportedly first felt nauseated and experienced chest tightness yesterday afternoon after being in the sun in [place], [place], but felt better after hydrating and drove herself home in [place]. Last night, chest tightness came back. Her EKG did show borderline ST depressions in II, III, AVF, and borderline ST elevations in lead V2. Her troponin was 796 on presentation (23:09), going up to 920 3 hrs later, then down to 915 this morning and 789 at 11 am. PE was ruled out with a negative CTA. While her CXR suggested pulmonary edema, her CT did not confirm this. The patient's case was reviewed with [facility] cardiology, who recommended treatment with aspirin, plavix and heparin gtt while awaiting a bed at [facility] for her NSTEMI. She was accepted in transfer by Dr Toledo for an evaluation for a cardiac cath, unavailable at our facility. A bed is expected to be available later today. While the patient's chest tightness has resolved, she also has a second type of chest discomfort which is actually L shoulder discomfort and can be elicited by movement of L shoulder. She does have a h/o prior injury to that shoulder in 2018, and this pain does not appear to react to nitroglycerin. We believe that this component of the patient's presenation is musculoskeletal. The patient's CT did demonstrate granulomas in both lungs, which will need to be followed up by PCP. Consider referral to pulmonology. As far as a suggestion of possible bilateral hydronephrosis on CTA of the chest, the patient has no evidence of kidney injury and has no symptoms of discomfort. This would need to be confirmed by an ultrasound, unavailable at our facility on the weekend and could be done as outpatient. The patient is stable for transfer and is in agreement with transfer. Care for patient as well as completion of her discharge summary on day of discharge took 45 minutes. Please, look for the list of inpatient medication in the MAR. The list of medications below reflects her outpatient prescriptions. Home Meds and New Rx's Prescriptions: No Action cholecalciferol (vitamin D3) 25 mcg (1,000 unit) tablet 2,000 unit PO DAILY fluconazole 150 mg tablet 150 mg PO ONCE Qty: 1 0RF Rx Instructions: as a single dose protein shake See Rx Instructions .ROUTE .COMPLEX Rx Instructions: Drinks 1 Protein Shake Daily; calcium carbonate-vitamin D3 [Caltrate with Vitamin D3] 1 EACH tablet 1 ea PO DAILY Emergen-C 1,000 MG powder effervescent in packet 1,000 mg PO DAILY [id number] [Osteo Bi-Flex (5-Loxin)] 1 EACH tablet 1 tab PO DAILY hydrochlorothiazide 12.5 mg tablet 12.5 mg PO DAILY Qty: 90 4RF Hold Instructions: Home Medication placed on hold at Doctor's office lisinopril 20 mg tablet 20 mg PO DAILY Qty: 90 3RF omeprazole 20 mg capsule,delayed release(DR/EC) 20 mg PO DAILY Qty: 90 4RF pravastatin 20 mg tablet 20 mg PO DAILY Qty: 90 3RF clobetasol-emollient 0.05 % cream 1 applic Topical BID PRN (Reason: itching (vaginal)) Qty: 30 3RF acetaminophen [Tylenol Extra Strength] 500 mg Tablet 1,000 mg PO Q4H PRN Discharge Instructions Instructions: Heart Attack (DC) Referrals: Kerrie Staples NP [Primary Care Provider] - Activity:: OOB to chair Diet:: heart healthy Discharge Orders Discharge Orders: Discharge Order (Routine); Ordered 03/14/22 Ordered By: Anne Patel DS: Summary Time Spent with Patient providing and/or coordinating discharge services: Greater than 30 minutes Status at Discharge Functional status at discharge: independent ambulation Overall status at discharge: patient is progressing back to baseline Mental Status: mental status grossly normal Speech and Movement: speech and movement normal Mood: congruent mood Affect: normal affect Exam Narrative Exam Narrative: General: Very pleasant elderly female who looks younger than her stated age, A&Ox3, appears uncomfortable when moving her L shoulder HEENT: EOMI, MMM Heart: RRR, no m/r/g Lungs: crackles at B bases Abdomen: soft, nontender, nondistended Extremities: no edema BLEs Psych Mental Status: mental status grossly normal Speech and Movement: speech and movement normal Mood: congruent mood Affect: normal affect DS: Data Vitals/I&O Vitals and I&O: Vital Signs Temperature 37.3 C 03/14/22 11:24 Temperature Source Tympanic 03/14/22 11:24 Pulse 70 03/14/22 11:24 Pulse Rhythm Regular 03/14/22 10:29 Respiratory Rate 14 03/14/22 11:24 Respiratory Effort 03/14/22 10:29 Respiratory Depth Normal 03/14/22 10:29 Respiratory Pattern Normal 03/14/22 10:29 Blood Pressure 101/63 03/14/22 11:24 Blood Pressure Position Sitting 03/13/22 22:26 Pulse Oximetry 95 03/14/22 11:24 Oxygen Delivery Method Room Air 03/14/22 11:24 Oxygen Flow Rate 0 03/14/22 11:24 Pain Level 0 03/14/22 11:24 Intake & Output 03/13/22 03/13/22 03/14/22 11:59 23:59 11:59 Intake Total 179.167 / 179.167 126.408 / 126.408 Balance 179.167 / 179.167 126.408 / 126.408 Weight 76.204 kg 81.5 kg Intake: IV 179.167 / 179.167 126.408 / 126.408 Other: Urine Color Yellow Urine Appearance Clear Stool Size Small Stool Characteristics Formed Voiding Methods Bedside Commode Data Completed and Pending Completed studies during hospitalization [Text1]: CXR: 1. Minimal pulmonary vascular congestion. 2. Cardiomegaly. CTA chest: 1. No pulmonary artery embolism demonstrated. 2. No aortic aneurysm. 3. Suboptimal opacification of aortic lumen at time of scan, limits evaluation for intraluminal abnormalities. 4. Cardiomegaly. 5. Small to moderate size hiatal hernia. 6. Bilateral hydronephrosis cannot be excluded. Labs on day of discharge: Labs from last 24 hours 03/14/22 03/14/22 03/14/22 13:30 13:30 11:20 WBC RBC Hgb Hct MCV MCH MCHC RDW Plt Count MPV Immature Gran % Neutrophils % Lymphocytes % Monocytes % Eosinophils % Basophils % Nucleated RBC % Absolute Neutrophils Absolute Lymphocytes Absolute Monocytes Absolute Eosinophils Absolute Basophils PT INR APTT Pending Cancelled D-Dimer Sodium Potassium Chloride Carbon Dioxide Anion Gap BUN Creatinine Estimated GFR/1.73 m2 Glucose Calcium Total Bilirubin AST ALT Alkaline Phosphatase Troponin I 789 H* NT-Pro-B Natriuret Pep Total Protein Albumin Triglycerides Total Cholesterol LDL Cholesterol, Calc HDL Cholesterol TSH COVID-19 Source SARS-CoV-2 (PCR) 03/14/22 03/14/22 03/14/22 11:20 06:53 06:53 WBC 8.49 RBC 4.07 Hgb 11.5 Hct 34.9 L MCV 86 MCH 28.3 MCHC 33.0 D RDW 14.1 Plt Count 201 MPV 10.5 Immature Gran % Neutrophils % Lymphocytes % Monocytes % Eosinophils % Basophils % Nucleated RBC % Absolute Neutrophils Absolute Lymphocytes Absolute Monocytes Absolute Eosinophils Absolute Basophils PT INR APTT D-Dimer Sodium 135 L Potassium 4.0 Chloride 103 Carbon Dioxide 26.7 Anion Gap 5.3 BUN 34 H Creatinine 0.8 Estimated GFR/1.73 m2 >= 60.00 Glucose 95 Calcium 8.7 Total Bilirubin AST ALT Alkaline Phosphatase Troponin I 915 H* NT-Pro-B Natriuret Pep Total Protein Albumin Triglycerides 65 Total Cholesterol 159 LDL Cholesterol, Calc 73 HDL Cholesterol 73 TSH COVID-19 Source SARS-CoV-2 (PCR) 03/14/22 03/14/22 03/14/22 06:33 02:52 01:32 WBC RBC Hgb Hct MCV MCH MCHC RDW Plt Count MPV Immature Gran % Neutrophils % Lymphocytes % Monocytes % Eosinophils % Basophils % Nucleated RBC % Absolute Neutrophils Absolute Lymphocytes Absolute Monocytes Absolute Eosinophils Absolute Basophils PT INR APTT 74.7 H D-Dimer Sodium Potassium Chloride Carbon Dioxide Anion Gap BUN Creatinine Estimated GFR/1.73 m2 Glucose Calcium Total Bilirubin AST ALT Alkaline Phosphatase Troponin I 920 H* NT-Pro-B Natriuret Pep Total Protein Albumin Triglycerides Total Cholesterol LDL Cholesterol, Calc HDL Cholesterol TSH COVID-19 Source Nasal/Nares SARS-CoV-2 (PCR) Negative 03/13/22 03/13/22 03/13/22 23:09 23:09 23:09 WBC 8.70 RBC 4.46 Hgb 12.4 Hct 38.4 MCV 86 MCH 27.8 MCHC 32.3 RDW 14.0 Plt Count 224 MPV 10.4 Immature Gran % 0.3 Neutrophils % 73.5 Lymphocytes % 16.6 Monocytes % 8.5 Eosinophils % 0.5 Basophils % 0.6 Nucleated RBC % 0.0 Absolute Neutrophils 6.40 Absolute Lymphocytes 1.44 Absolute Monocytes 0.74 Absolute Eosinophils 0.04 Absolute Basophils 0.05 PT 10.2 INR 1.0 APTT 25.2 D-Dimer 1749 H Sodium 137 Potassium 3.8 Chloride 101 Carbon Dioxide 26.0 Anion Gap 10.0 BUN 32 H Creatinine 1.2 H Estimated GFR/1.73 m2 43.34 Glucose 160 H Calcium 8.9 Total Bilirubin 0.4 AST 18 ALT 23 Alkaline Phosphatase 76 Troponin I 796 H* NT-Pro-B Natriuret Pep 312 H Total Protein 6.6 Albumin 3.4 Triglycerides Total Cholesterol LDL Cholesterol, Calc HDL Cholesterol TSH 1.31 COVID-19 Source SARS-CoV-2 (PCR) PFSH All Active Problems (Updated 03/14/22 @ 12:30 by Anne Patel MD) Lung granuloma (Acute) Atelectasis (Acute) Left shoulder pain (Acute) Sunburn (Acute) Discharge planning issues (Acute) DVT prophylaxis (Acute) Non-ST elevation [place] (NSTEMI) (Acute) Chest tightness (Acute) Medical History Actinic keratosis Gordon's esophagus EGD 02/05/14 - F/U 3 years NEG [facility] egd 2016 Bilateral low back pain without sciatica (05/13/16) Closed fracture of proximal end of right humerus (06/11/19) Essential hypertension (10/02/13) Family history of colon cancer (02/05/10) father Hiatal hernia History of postoperative nausea and vomiting Hyperlipidemia Left medial knee pain Lichen planus on rt [place] Osteopenia Rosacea Spondylosis of lumbar region without myelopathy or radiculopathy Traumatic closed displaced fracture of proximal end of left humerus with routine healing (01/03/18) 01/03/18 Varicose veins of lower extremity Vitiligo Yeast vaginitis Surgical History Appendectomy no date given BIOPSY (02/05/14) DISTAL ESOPHAGUS BX Cholecystectomy (~10/2001) Colonoscopy - MAC (~01/2014) EGD - IV Sedation (02/15/17) Endoscopy 02/15/17 [facility] F[facility] Surgery CYST REMOVAL;DR. YEPEZ; 03/17/17 History of Mike fundoplication Ligation of fallopian tube Medial Branch Block 10/12/16; PAIN CLINIC 10/12/16 S/P colonoscopic polypectomy (~05/2020) Dr. Nemesio [place] ? F/U Family History Mother , age 90 Diabetes Essential hypertension Heart disease Hyperlipidemia Breast cancer Father , age 78 Diabetes Essential hypertension Hyperlipidemia Lung cancer Brother Prostate cancer Hyperlipidemia Essential hypertension Asthma Sister , 59 Colon cancer Sister Diabetes Hyperlipidemia Sister No problems noted. Sister Asthma Sister Depression Brother Heart disease Brother Essential hypertension Hyperlipidemia Bladder cancer Son No problems noted. Daughter , 42 Diabetes Daughter No problems noted. Daughter No problems noted. Maternal Grandfather No problems noted. Paternal Grandfather No problems noted. Maternal Grandmother No problems noted. Paternal Grandmother No problems noted. Social History Smoking/Tobacco Use Status: Never Smoking risk assessment performed?: Yes Alcohol Intake: current Alcohol Intake frequency: holidays/special occasions only Drug use: Never Substance use type: does not use Counseling given: No Counseling provided: none Caregiver/Support person: No Household members: none Housing: apartment Do you need help understanding health information?: Never Pets and animals: No Sexually active: No Do you think of yourself as: straight/heterosexual Current gender identity: female What is your relationship status?: How often do you talk on the phone with friends or family?: three or more times per week How often do you get together with friends or relatives?: three or more times per week How often do you attend latter-day or jew services?: decline to answer Do you belong to any clubs or organized social groups?: no Panel score (0-1 are the most socially isolated patients): 1 What type of physical activity do you participate in: decline to answer Duration: 15-30 minutes/day Frequency: 5-6 times per week Chloe/Mandaeism: Confucianism Special chloe needs: No Seatbelt use: always Drive intox or ride w/intox school bus driver/mechanic: No Do you feel safe at home: Yes Do you feel safe in your relationship?: Yes Female Reproductive History Menstrual Age of Menarche: 16 History History 4 Para 4 Hx # Term Pregnancies 4 Multiple births Hx # Pregnancies Ectopic pregnancies AB induced Hx Number of Living Children 4 AB spontaneous Past Pregnancies Del. Date GA/Weeks # Preg Succ Route Wgt Sex Labor Lgth Anesthesia Location Prov Complic 04/16/1961 vaginal Female 12/03/1963 vaginal Male 12/26/1968 vaginal Female 07/19/71 vaginal Female
[2022-03-14 14:04] LABS: PTT Activated 45.9 sec (21.0-27.5)
== END 2022-03-14 15:33 | disposition short-term general hospital (02) | DRG 282 ==
LOC: ER 03-14 02:56 → MS 03-14 03:35
PROVIDERS: Internal Medicine; Admitting Provider Family Medicine; Emergency Provider Student in an Organized Health Care Education/Training Program; Visit Provider Family Medicine
DX: I21.4 Non-ST elevation (NSTEMI) myocardial infarction; K22.710 Barrett's esophagus with low grade dysplasia; I10 Essential (primary) hypertension; B37.3 Candidiasis of vulva and vagina; J84.10 Pulmonary fibrosis, unspecified; E78.00 Pure hypercholesterolemia, unspecified; R79.1 Abnormal coagulation profile; D64.9 Anemia, unspecified; M25.512 Pain in left shoulder
CPT/HCPCS: 36415; 71275; 80048; 80053; 80061; 85027; 87635; 93005; 96361; 96365; 96366; 96376; 99291; 71045; 83880; 84443; 84484; 85025; 85379; 85610; 85730; 93010; 99239; J3490

== ENCOUNTER 2022-11-04 15:54 | Outpatient (REF) | payer MEDICARE, SELFPAY ==
[2022-11-04 13:30] LABS: Bilirubin Negative (Negative); Blood Negative (Negative); Clarity Clear (Clear); Glucose Negative (Negative); Ketones Negative (Negative); Leukocyte Esterase Trace (Negative); Nitrite Negative (Negative); Specific Gravity 1.015 (1.005-1.025); Urobilinogen 0.2 EU/dL (Up TO 0.2)
[2022-11-04 13:42] LABS: Bacteria Rare HPF (Negative); C & S Indicated? No/Sq. Contamination; Casts Negative LPF (Negative); Crystals Negative HPF (Negative); Epithelial Cells Moderate HPF (Negative); Mucus Negative (Negative); RBC Negative HPF (0-2)
== END 2022-11-04 15:55 | disposition home or self-care (01) ==
LOC: LBN 15:54
PROVIDERS: PCP Nurse Practitioner Family; Visit Provider Nurse Practitioner Family
DX: N89.8 Other specified noninflammatory disorders of vagina (principal); R82.998 Other abnormal findings in urine
CPT/HCPCS: 81003; 81015; 87480; 87510; 87660

== ENCOUNTER 2022-11-08 11:03 | Outpatient (CLI) | payer MEDICARE, SELFPAY ==
--- NOTE | 2022-11-08 11:00 | RT.EKG_ITS ---
APPROVED REPORT Exam: Resting ECG Reason for Exam: hx of mi Patient Location: O HR:68 bpm ECG Measurements Heart Rate 68 AXIS WY 165 P 27 QRSd 101 QRS -5 QT 373 T -2 QTc 397 Conclusion Sinus rhythm...normal P axis, V-rate 50- 99 early transition...QRS area>0 in V2
== END 2022-11-08 11:04 | disposition home or self-care (01) ==
LOC: DI.CARD 11:04
PROVIDERS: PCP Nurse Practitioner Family; Visit Provider Internal Medicine Cardiovascular Disease
DX: I25.2 Old myocardial infarction (principal)
CPT/HCPCS: 93010

== ENCOUNTER → 2022-11-08 12:54 | Outpatient (BNVA) | payer MEDICARE, SELFPAY | PROVIDERS: PCP Nurse Practitioner Family; Visit Provider Internal Medicine Cardiovascular Disease | DX: I25.2 Old myocardial infarction (principal); I10 Essential (primary) hypertension | CPT/HCPCS: 93005; 99202; 99214 ==

== ENCOUNTER 2022-11-30 02:22 | Outpatient (CLI) | payer MEDICARE, SELFPAY ==
[2022-11-30 12:51] LABS: BUN 28 mg/dL (7-18); CREATININE 0.8 mg/dL (0.55-1.02); Calcium 9.3 mg/dL (8.5-10.1); Chloride 104 mmol/L (98-107); Estimated GFR 74.44 (mL/min/1.73m2); Glucose 102 mg/dL (74-106); Potassium 4.6 mmol/L (3.5-5.1); Sodium 139 mmol/L (136-145)
== END 2022-11-30 02:23 | disposition home or self-care (01) ==
LOC: LOS 02:22
PROVIDERS: PCP Nurse Practitioner Family; Visit Provider Nurse Practitioner Family
DX: I10 Essential (primary) hypertension (principal)
CPT/HCPCS: 36415; 80048

== ENCOUNTER 2022-12-26 03:53 | Emergency (ER) | payer MEDICARE, SELFPAY ==
[2022-12-26] VITALS (21 sets, daily range): BP systolic 113–151; BP diastolic 49–86; PULSE 88–102; RESP 12–25; TEMP 36.6; O2SAT 94–98
--- NOTE | 2022-12-26 03:45 | RT.EKG_ITS ---
APPROVED REPORT Exam: Resting ECG Reason for Exam: weakness Patient Location: E HR:94 bpm ECG Measurements Heart Rate 94 AXIS ME 157 P 35 QRSd 91 QRS -16 QT 360 T -2 QTc 451 Conclusion Sinus rhythm...normal P axis, V-rate 60- 99 Narrow complex normal sinus rhythm at a rate of 94. Left axis deviation no signs of LVH based on vol tage criteria. ST segment depressions in V2 through V5. More pronounced compared to prior dated ear lier this year. Persistent T wave inversion in lead III.
--- NOTE | 2022-12-26 04:00 | DI.RAD_ITS ---
Exam(s) XR PORTABLE CHEST AP EXAM: XR PORTABLE CHEST AP CLINICAL HISTORY: Nausea vomiting TECHNIQUE: 2D digital imaging was performed of the chest. One image was obtained. An AP view was ob tained. COMPARISON: CR,XR XR PORTABLE CHEST AP from 03/13/2022 FINDINGS: MEDIASTINUM: Normal. HEART: The heart appears enlarged but this may be due to AP technique. PULMONARY VASCULATURE: Normal. LUNGS: No focal consolidating infiltrate. Linear atelectasis in the bases. PLEURAL SPACE: No pleural effusion or pneumothorax. BONE:Within normal limits for the patient's age. The patient has a right shoulder replacement which i s incompletely imaged. There does appear to be an old fracture deformity of the proximal left humeru s. OTHER FINDINGS:Normal. IMPRESSION: No acute pulmonary findings. DATA REPOSITORY: RADIATION DOSE DELIVERED:
--- NOTE | 2022-12-26 04:02 | ED.GENADUL_ITS ---
Discharge Plan Discharge Details Chief Complaint: Nausea/Vomit/Diar Clinical Impression: Moderate nausea and vomiting Primary Care Provider: Gume Byers ED Provider: Karsten Saravia Seymour Meds and New Rx's Prescriptions: New ondansetron 4 mg tablet,disintegrating 4 mg PO BID 5 Days Qty: 10 0RF ondansetron 4 mg tablet,disintegrating 4 mg PO BID 5 Days Qty: 10 0RF Continued cholecalciferol (vitamin D3) 25 mcg (1,000 unit) tablet 2,000 unit PO DAILY loratadine 10 mg tablet 10 mg PO DAILY protein shake See Rx Instructions .ROUTE .COMPLEX Rx Instructions: Drinks 1 Protein Shake Daily; aspirin [Adult Aspirin Regimen] 81 mg tablet,delayed release (DR/EC) 81 mg PO DAILY Qty: 1 0RF atorvastatin 20 mg tablet 20 mg PO QPM Qty: 90 3RF calcium carbonate-vitamin D3 [Caltrate with Vitamin D3] 1 EACH tablet 1 ea PO DAILY Emergen-C 1,000 MG powder effervescent in packet 1,000 mg PO DAILY [id number] [Osteo Bi-Flex (5-Loxin)] 1 EACH tablet 1 tab PO DAILY atenolol 25 mg tablet 25 mg PO DAILY Qty: 90 3RF omeprazole 20 mg capsule,delayed release(DR/EC) 20 mg PO DAILY Qty: 90 4RF lisinopril 10 mg tablet 10 mg PO DAILY Qty: 90 0RF hydrochlorothiazide 12.5 mg capsule 12.5 mg PO DAILY Qty: 90 0RF acetaminophen [Tylenol Extra Strength] 500 mg Tablet 1,000 mg PO Q4H PRN Medical Decision Making This is a normothermic and not tachycardic 82-year-old with nonobstructive coronary artery disease and hyperlipidemia and hypertension now with nausea and vomiting concerning for myocardial injury versus intra-abdominal process. Patient is not complaining of any significant pain however given her 6-7 episodes of emesis I am concerned for the possibility of esophageal rupture so we will obtain a CT chest abdomen pelvis with IV contrast. Patient has had multiple episodes of diarrhea concerning for the possibility of diverticulitis. No rash to abdomen to suggest zoster. No tearing quality to suggest aortic dissection. Patient is not an alcoholic to suggest increased risk of pancreatitis however will obtain lipase. No specific left upper quadrant tenderness to suggest splenic arterial aneurysm. No right lower quadrant tenderness to suggest appendicitis. Will treat with aspirin in the event that patient's ST segment depressions represents ACS. No dysuria nor frequency to suggest acute UTI. She does have a history of surgical removal of a colonic polyp and as a result SBO's certainly on the differential. We will proceed with CT scan and reassess. No pain out of proportion to suggest necrotizing soft tissue infection. Given dizziness without headache will obtain dry CT scan of head to assess for intracranial hemorrhage. Patient is neurologically intact so I am not concerned for acute CVA and specifically not concern for large vessel occlusion and I do not feel that the patient requires a CTA head nor neck. Given no neurological deficits patient is not a tPA candidate. No shortness of breath to suggest PE. 4:50 AM CBC significant for no leukocytosis but no anemia and no thrombocytopenia. Additional labs have hemolyzed and have been resent. 5:12 AM Comprehensive metabolic panel significant for mild anion gap and mild hyperglycemia. Not consistent with DKA based on normal bicarbonate. No TIGRE. No LFT abnormalities. 5:30 AM Reassuring negative troponin. Elevated lipase less than 3 times the upper limit of normal and not consistent with pancreatitis. Will treat with 500 cc of fluids. 7:15 AM I met with the patient and her sister. Patient was still feeling nauseous but had not vomited. I redosed her with ondansetron 4 mg. If her repeat troponin is reassuring and her CT does not show any significant pathology she will be appropriate for discharge if she is feeling improved and passes a p.o. trial. I will send a prescription for ondansetron to the patient's pharmacy as she is not on any QT prolonging medications. 7:[address] scan read as follows: IMPRESSION: 1. No acute aortic pathology or pulmonary embolism. 2. Small bowel and proximal colon are fluid-filled, can be seen with enteritis. 3. Moderate- sized hiatal hernia. 4. Additional chronic findings including coronary artery disease Given enteritis we will proceed with p.o. trial. Second troponin results. We will sign patient out to Dr. Loaiza. Chronic conditions affecting the care of the patient: Hypertension hyperlipidemia History obtained from an outside historian: Hearing Care Professional External record review: [facility] Diagnostic interpretations performed by me: [Per my independent interpretation EKG shows:] Narrow complex normal sinus rhythm at a rate of 94. Left axis deviation no signs of LVH based on voltage criteria. ST segment depressions in V2 through V5. More pronounced compared to prior dated earlier this year. Persistent T wave inversion in lead III. Medications: Ondansetron Social determinants of health affecting disposition: N/A Management discussed with: Oncoming ED provider Dr. Loaiza Treatment/interventions considered: NG tube but no vomiting Response to therapies provided: No emesis in the emergency department following ondansetron HPI General Date/Time Provider Initiated Documentation: 12/26/22 04:02 . HPI Narrative: This is an 82-year-old female with a history of nonobstructive coronary artery disease, NSTEMI, hypertension and hyperlipidemia arrived via EMS in the setting of vomiting intermittently for the last 3 hours. Patient reports being in her usual state of health earlier today. She reportedly lives alone. She says that after she became nauseous and began vomiting she also developed dizziness. She has not been having any headaches. She said that she had 4-5 episodes of diarrhea today. She has a remote surgical history significant for a colonic polyp removal. She reports that when she was on the toilet earlier today her right knee gave out and she had to use her right arm to stabilize herself. She denies chest pain abdominal pain. She denies dysuria and frequency. She denies routine tobacco, ethanol, and illicits. Related Data Home Medications Medication Instructions Recorded Confirmed calcium carbonate 600 mg-vitamin 1 ea PO DAILY 11/23/12 12/26/22 D3 20 mcg (800 unit) tablet (Caltrate with Vitamin D3) ascorbic acid 1,000 1,000 mg PO DAILY 11/02/17 12/26/22 [id number] powder effervescent pack (Emergen-C) glucosamine [id number] 1 tab PO DAILY 11/02/17 12/26/22 yinka 1,500 mg-400 unit-100 mg tablet (Osteo Bi-Flex (5-Loxin)) acetaminophen 500 mg tablet 1,000 mg PO Q4H PRN 06/20/19 12/26/22 (Tylenol Extra Strength) protein shake See Rx Instructions .Route .COMPLEX 11/17/20 12/26/22 cholecalciferol (vitamin D3) 25 2,000 unit PO DAILY 01/12/22 12/26/22 mcg (1,000 unit) tablet aspirin 81 mg tablet,delayed 81 mg PO DAILY #1 tab 03/24/22 12/26/22 release (Adult Aspirin Regimen) atorvastatin 20 mg tablet 20 mg PO QPM #90 tabs 05/20/22 12/26/22 atenolol 25 mg tablet 25 mg PO DAILY #90 tabs 06/25/22 12/26/22 loratadine 10 mg tablet 10 mg PO DAILY 07/21/22 12/26/22 omeprazole 20 mg capsule,delayed 20 mg PO DAILY #90 tab-caps 09/03/22 12/26/22 release hydrochlorothiazide 12.5 mg capsule 12.5 mg PO DAILY #90 caps 12/14/22 12/26/22 lisinopril 10 mg tablet 10 mg PO DAILY #90 tabs 12/14/22 12/26/22 ondansetron 4 mg disintegrating 4 mg PO BID 5 days #10 tabs 12/26/22 tablet ondansetron 4 mg disintegrating 4 mg PO BID 5 days #10 tabs 12/26/22 tablet Previous Rx's Medication Instructions Recorded aspirin 81 mg tablet,delayed 81 mg PO DAILY #1 tab 03/24/22 release (Adult Aspirin Regimen) atorvastatin 20 mg tablet 20 mg PO QPM #90 tabs 05/20/22 atenolol 25 mg tablet 25 mg PO DAILY #90 tabs 06/25/22 omeprazole 20 mg capsule,delayed 20 mg PO DAILY #90 tab-caps 09/03/22 release hydrochlorothiazide 12.5 mg capsule 12.5 mg PO DAILY #90 caps 12/14/22 lisinopril 10 mg tablet 10 mg PO DAILY #90 tabs 12/14/22 ondansetron 4 mg disintegrating 4 mg PO BID 5 days #10 tabs 12/26/22 tablet ondansetron 4 mg disintegrating 4 mg PO BID 5 days #10 tabs 12/26/22 tablet Allergies Allergy/AdvReac Type Severity Reaction Status Date / Time oxycodone HCl [From Percocet] AdvReac Intermediate GI, Verified 12/26/22 04:05 Headache, Nausea codeine AdvReac Mild Upset Verified 12/26/22 04:05 Stomach General Stated Complaint: Nausea/Vomit/Diar REBA: 3 PFSH All Active Problems (Updated 12/26/22 @ 07:18 by Karsten Saravia MD) Gordon's esophagus (Acute) EGD 02/05/13- and in 2017 [facility]YLORI egd 12/31, 2016,[address] [facility] for [facility] in 2022 Essential hypertension (Acute 10/02/13) Hyperlipidemia (Acute) Non-ST elevation [place] (NSTEMI) (Acute) 02/2022-treated at [facility], cardiac catheterization showed nonobstructive cardiac disease, preserved heart function, treated with medical therapy Lung granuloma (Acute) 2021-incidental finding with chest CT-5 mm calcified granuloma Renal cyst (Acute) Multiple bilateral peripelvic renal cysts-. Ultrasound 2015 Lichen sclerosus (Acute) Moderate nausea and vomiting (Acute) Medical History Actinic keratosis Bilateral low back pain without sciatica (05/13/16) Closed fracture of proximal end of right humerus (06/11/19) Family history of colon cancer (02/05/10) father Hiatal hernia History of postoperative nausea and vomiting Left medial knee pain Lichen planus on rt [place] Osteopenia Rosacea Spondylosis of lumbar region without myelopathy or radiculopathy Traumatic closed displaced fracture of proximal end of left humerus with routine healing (01/03/18) 01/03/18 Varicose veins of lower extremity Vitiligo Yeast vaginitis Surgical History Appendectomy no date given BIOPSY (02/05/14) DISTAL ESOPHAGUS BX Cholecystectomy (~10/2001) Colonoscopy - MAC (~01/2014) EGD - IV Sedation (02/15/17) Endoscopy 02/15/17 [facility] CYST REMOVAL;DR. YEPEZ; 03/17/17 History of Mike fundoplication Ligation of fallopian tube Medial Branch Block 10/12/16; PAIN [facility] 10/12/16 S/P colonoscopic polypectomy (~05/2020) Dr. Nemesio [place] ? F/U Family History Mother , age 90 Diabetes Essential hypertension Heart disease Hyperlipidemia Breast cancer Father , age 78 Diabetes Essential hypertension Hyperlipidemia Lung cancer Brother Prostate cancer Hyperlipidemia Essential hypertension Asthma Sister , 59 Colon cancer Sister Diabetes Hyperlipidemia Sister No problems noted. Sister Asthma Sister Depression Brother Heart disease Brother Essential hypertension Hyperlipidemia Bladder cancer Son No problems noted. Daughter , 42 Diabetes Daughter No problems noted. Daughter No problems noted. Maternal Grandfather No problems noted. Paternal Grandfather No problems noted. Maternal Grandmother No problems noted. Paternal Grandmother No problems noted. Social History Smoking/Tobacco Use Status: Never Smoking risk assessment performed?: Yes Alcohol Intake: current Alcohol Intake frequency: holidays/special occasions only Drug use: Never Substance use type: does not use Counseling given: No Counseling provided: none Caregiver/Support person: No Household members: none Housing: apartment Do you need help understanding health information?: Never Pets and animals: No Sexually active: No Do you think of yourself as: straight/heterosexual Current gender identity: female What is your relationship status?: How often do you talk on the phone with friends or family?: three or more times per week How often do you get together with friends or relatives?: three or more times per week How often do you attend cheondoism or samaritan services?: decline to answer Do you belong to any clubs or organized social groups?: no Panel score (0-1 are the most socially isolated patients): 1 What type of physical activity do you participate in: decline to answer Duration: 15-30 minutes/day Frequency: 5-6 times per week Chloe/Congregation: [employer] Special chloe needs: No Seatbelt use: always Drive intox or ride w/intox petrol tanker driver: No Do you feel safe at home: Yes Do you feel safe in your relationship?: Yes Female Reproductive History Menstrual Age of Menarche: 16 History History 4 Para 4 Hx # Term Pregnancies 4 Multiple births Hx # Pregnancies Ectopic pregnancies AB induced Hx Number of Living Children 4 AB spontaneous Past Pregnancies Del. Date GA/Weeks # Preg Succ Route Wgt Sex Labor Lgth Anesth esia Location [facility] 04/16/1961 vaginal Female 12/03/1963 vaginal Male 12/26/1968 vaginal Female 07/19/71 vaginal Female Exam Narrative Exam Narrative: General: Well-appearing in no acute distress speaking in complete sentences. Head: Normocephalic, atraumatic. Eye: Pupils equal, round reactive to light. Extraocular eye movements intact. No conjunctival injection. No scleral icterus. Ear, nose, mouth, throat: Grossly normal inspection. Normal voice, handling secretions normally. Neck: Trachea midline. Cardiovascular: Well-perfused distal extremities. Regular rate and rhythm. No murmurs. Respiratory: Nonlabored respiration. Clear lungs bilaterally Gastrointestinal: Nondistended abdomen. Minimal epigastric tenderness. No rebound. No guarding. Musculoskeletal: No significant lower extremity pitting edema. Moving all 4 extremities spontaneously. Right shoulder with well-healed surgical scar. No ecchymoses to right shoulder. Patient is able to touch her right hand to her contralateral left shoulder. No tenderness throughout humerus on the right and elbow and forearm on the right. Skin: Normal for age and race, grossly normal temperature and turgor. No acute rash. Neurologic: Alert and appropriate, no apparent acute deficits. Cranial nerves II through XII intact grossly. 5 out of 5 bilateral upper and lower extremity strength. No pronator drift. Psychiatric: Mood and manner are appropriate. Grooming and personal hygiene are appropriate. Course Vital Signs Vital signs: Vital Signs Temperature 36.6 C 12/26/22 03:54 Pulse 90 12/26/22 03:54 Respiratory Rate 20 12/26/22 03:54 Blood Pressure 143/78 H 12/26/22 03:54 Pulse Oximetry 96 12/26/22 03:54 Temperature 36.6 C 12/26/22 03:54 Temperature Source Oral 12/26/22 03:54 Pulse 90 12/26/22 03:54 Respiratory Rate 20 12/26/22 03:54 Blood Pressure 143/78 H 12/26/22 03:54 Blood Pressure Position Sitting 12/26/22 03:54 Pulse Oximetry 96 12/26/22 03:54 Oxygen Delivery Method Room Air 12/26/22 03:54 Oxygen Flow Rate 0 12/26/22 03:54
--- NOTE | 2022-12-26 04:15 | DI.CT_ITS ---
Exam(s) CT CHEST PE ABD PELVIS W EXAM: CT CHEST PE ABD PELVIS W CLINICAL HISTORY: History of emesis concerning for esophageal ruptur. TECHNIQUE: Imaging Protocol: Axial CT angiography was performed with multi-slice acquisition and mu lti-planar and/or 3D reconstructions. CONTRAST MATERIAL: Intravenous: Omnipaque 350contrast volume:200 mL COMPARISON: CT CT CHEST PE CTA from 03/14/2022 FINDINGS: CHEST: Tracheobronchial tree: Patent where visualized. Pulmonary parenchyma: Mild dependent atelectasis is seen in the lung bases. No focal consolidating i nfiltrates are present. There is a calcified granuloma in the left lower lobe. No architectural dis tortion. Pulmonary Arteries: No evidence of filling defect to suggest pulmonary emboli. Mediastinum and Greta: No dominant adenopathy or fluid collection. The esophagus is fluid-filled. The re is no pneumomediastinum. There is a sliding hiatal hernia. Visualized thyroid gland: Unremarkable. Pleura: No effusion or pneumothorax. Heart: Mild cardiomegaly. Coronary artery calcification is present. No pericardial effusion. Aorta: Thoracic aorta non-dilated. No evidence of dissection. Atherosclerosis is present. Bones: Within normal limits for the patient's age. The patient has a right shoulder replacement. Soft tissues: Unremarkable. ABDOMEN: Liver: Normal density. There is a stable cyst in the left lobe of the liver. No suspicious hepatic m asses are seen. Portal, Superior Mesenteric, and Splenic Veins: Unremarkable. Gallbladder and Biliary Tract: Status post cholecystectomy. No significant biliary ductal dilatation is present. Pancreas: Normal density, no abnormal calcifications or inflammatory process. Spleen: Normal. Adrenals: No masses seen. Kidneys: Normal size, contour and axis. No radiodense stones or obstructive uropathy. There are bilat eral renal cysts. No follow-up is recommended. Abdominal Aorta: Abdominal portion non-dilated. Atherosclerosis. Bowel: There is diverticulosis seen in the colon, but no evidence of acute diverticulitis. Postsurgi andreina changes are seen at the ileal cecal region. There is no evidence of bowel obstruction. There is mild wall thickening seen in the distal stomach. No evidence of appendicitis. There are fluid-fill ed loops of small and large bowel. Peritoneal Cavity: No ascites, collection or mesenteric inflammatory response. No free air. Lymph Nodes: Within normal limits. Bones: Within normal limits for the patient's age. Soft Tissues: There is a small fat containing midline lower anterior abdominal wall hernia. PELVIS: Bladder: Symmetric distention, no gross wall thickening. Reproductive Organs: Uterine calcification likely reflects a uterine fibroid. Lymph Nodes: Within normal limits. Bones: Within normal limits. IMPRESSION: 1. No evidence pulmonary embolism, thoracic aortic dissection or aneurysm. 2. No acute pulmonary process. 3. Thickening of the wall of the distal stomach. This may be due to underdistention. Infectious/inf lammatory process or neoplasm cannot be excluded. Further evaluation with upper GI or upper endoscop y should be considered. 4. Hiatal hernia. No evidence of pneumomediastinum. 5. Fluid-filled small and large bowel loops. This can be seen with a diarrheal illness/enteritis. P lease correlate clinically. Unexpected findings RADIATION DOSE DELIVERED: 1284.5 mGy.cm Total DLP DATA REPOSITORY: All CT scans at this facility are submitted to the National Radiology Data Registry (NRDR) Dose Index Registry (DIR) with the [employer] (ACR). RADIATION OPTIMIZATION: All CT scans at this facility use at least one of these dose optimization te chniques: automated exposure control; mA and/or kV adjustment per patient size (includes targeted exa ms where dose is matched to clinical indication); or iterative reconstruction.
--- NOTE | 2022-12-26 04:15 | DI.CT_ITS ---
Exam(s) CT HEAD WO EXAM: CT HEAD WO CLINICAL HISTORY: Dizziness. TECHNIQUE: Imaging Protocol: Axial computed tomography images with coronal and sagittal reformatted images were created and reviewed COMPARISON: No exams were available for comparison FINDINGS: Ventricles and Extra axial spaces: Normal in size and morphology for the patient's age. Hemorrhage: None. Cerebral parenchyma: No evidence of an acute territorial infarct. Unremarkable white matter. Midline shift: None. Brainstem/Cerebellum: Normal. Calvarium: Normal. Visualized Paranasal sinuses/Mastoids: Clear. Soft Tissues: Unremarkable. IMPRESSION: No acute intracranial process. RADIATION DOSE DELIVERED: 702.89mGy.cm Total DLP DATA REPOSITORY: All CT scans at this facility are submitted to the National Radiology Data Registry (NRDR) Dose Index Registry (DIR) with the [employer] (ACR). RADIATION OPTIMIZATION: All CT scans at this facility use at least one of these dose optimization te chniques: automated exposure control; mA and/or kV adjustment per patient size (includes targeted exa ms where dose is matched to clinical indication); or iterative reconstruction.
[2022-12-26 04:24] LABS: Abs Immature Grans 0.04 10^3/uL (0.0-0.06); Absolute Basophil Count 0.06 10^3/uL (0.0-0.2); Absolute Eosinophil Count 0.03 10^3/uL (0.0-0.7); Absolute Monocyte Count 0.74 10^3/uL (0.1-0.8); Basophils % 0.5; Eosinophils % 0.2; HCT 46.5 % (36.0-46.0); HGB 15.4 g/dL (11.2-15.7); Immature Grans % 0.3; Lymphocytes % 3.1; MCH 28.5 pg (27.0-33.0); MCHC 33.1 % (32.0-36.0); MCV 86 fL (80-95); Monocytes % 5.8; Neutrophils % 90.1; Platelet Count 216 10^3/uL (130-400); RDW 14.1 % (11.7-14.6); WBC 12.74 10^3/uL (4.4-10.8)
[2022-12-26 04:25] LABS: Absolute Lymphocyte Count 0.39 10^3/uL (1.2-3.4); Absolute Neutrophil Count 11.48 10^3/uL (1.2-6.7)
[2022-12-26] MEDS: Aspirin 325 MG TAB PO (04:27)
[2022-12-26] MEDS: Ondansetron 4 MG/2 ML VIAL IVP ×2 (04:27→07:19)
[2022-12-26 05:01] LABS: ALT 24 U/L (14-59); Potassium 4.1 mmol/L (3.5-5.1); Total Protein 7.6 g/dL (6.4-8.2)
[2022-12-26 05:02] LABS: AST 17 U/L (15-37); Alkaline Phosphatase 101 U/L (46-116); Anion Gap 11.1 mmol/L (3-11); BUN 40 mg/dL (7-18); Bilirubin, Total 0.5 mg/dL (0.2-1.0); CO2 25.9 mmol/L (21.0-32.0); Calcium 9.2 mg/dL (8.5-10.1); Chloride 101 mmol/L (98-107); Estimated GFR 56.95 (mL/min/1.73m2); Glucose 123 mg/dL (74-106); Sodium 138 mmol/L (136-145)
[2022-12-26 05:22] LABS: Lipase 221 U/L (16-77); Troponin I < 50 ng/L (<or=60)
[2022-12-26] MEDS: Omnipaque 350 MG/ML 100 ML BTL IJ (06:16)
[2022-12-26] MEDS: Normal Saline 500 ML IV (06:58)
--- NOTE | 2022-12-26 07:11 | DI.VRAD_ITS ---
PROCEDURE INFORMATION: Exam: CT Head Without Contrast Exam date and time: 12/26/2022 5:32 AM Age: 82 years old Clinical indication: Dizziness TECHNIQUE: Imaging protocol: Computed tomography of the head without contrast. COMPARISON: No relevant prior studies available. FINDINGS: Brain: Normal. No hemorrhage. Unremarkable white matter. No mass effect. Cerebral ventricles: No ventriculomegaly. Paranasal sinuses: Visualized sinuses are unremarkable. No fluid levels. Mastoid air cells: Visualized mastoid air cells are well aerated. Bones/joints: Unremarkable. No acute fracture. Soft tissues: Unremarkable. IMPRESSION: No acute intracranial abnormality. Dictated and Authenticated by: Miroslava Cuadra MD. Ordering:GALILEO Shelley MD
--- NOTE | 2022-12-26 07:27 | DI.VRAD_ITS ---
PROCEDURE INFORMATION: Exam: CTA Chest With Contrast CTA Abdomen With Contrast Exam date and time: 12/26/2022 5:36 AM Age: 82 years old Clinical indication: Other: Dizziness/vomiting; Other: Dizziness/vomitting TECHNIQUE: Imaging protocol: Computed tomographic angiography of the chest with contrast. Computed tomographic angiography of the abdomen with contrast. 3D rendering (Not supervised by radiologist): MIP and/or 3D reconstructed images were created by the technologist. Contrast material: OMNIPAQUE 350; Contrast volume: 200 ml; Contrast route: INTRAVENOUS (IV); COMPARISON: CT CHEST PE CTA 03/14/2022 12:06 AM FINDINGS: VASCULATURE: Pulmonary arteries: No pulmonary emboli. Aorta: No aortic aneurysm. Atherosclerosis. No aortic dissection. Celiac trunk and mesenteric arteries: No occlusion or significant stenosis. Renal arteries: No occlusion or significant stenosis. CHEST: Lungs: No consolidation. No masses. Pleural spaces: No pneumothorax. No pleural effusion. Heart: No cardiomegaly. No pericardial effusion. Mild coronary artery calcifications. Esophagus: Fluid-filled. Moderate-sized hiatal hernia. ABDOMEN AND PELVIS: Liver: Mildly enlarged. No mass. Cysts at the left hepatic dome. Subcentimeter hypodensity along the anterior right hepatic lobe. Gallbladder and bile ducts: Cholecystectomy. No ductal dilation. Pancreas: No mass. No ductal dilation. Spleen: No splenomegaly. Adrenal glands: Unremarkable. No mass. Kidneys and ureters: No solid mass. Bilateral parapelvic cysts. Simple 3.3 cm cyst of the posterior left upper pole. No hydronephrosis. Stomach and bowel: Hiatal hernia. No obstruction. Small bowel and proximal colon are diffusely fluid-filled. Colonic diverticulosis. No mucosal thickening. Intraperitoneal space: No free air. No significant fluid collection. Lymph nodes: Unremarkable. No enlarged lymph nodes. Bones/joints: Moderate multilevel thoracolumbar spondylosis. No acute fracture. Soft tissues: Fat containing infra umbilical and right inguinal hernia. IMPRESSION: 1. No acute aortic pathology or pulmonary embolism. 2. Small bowel and proximal colon are fluid-filled, can be seen with enteritis. 3. Moderate-sized hiatal hernia. 4. Additional chronic findings including coronary artery disease. Dictated and Authenticated by: Loren Cabezas MD. Ordering:GALILEO Shelley MD
--- NOTE | 2022-12-26 07:30 | DI.VRAD_ITS ---
PROCEDURE INFORMATION: Exam: XR Chest Exam date and time: 12/26/2022 5:41 AM Age: 82 years old Clinical indication: Other: Dizziness TECHNIQUE: Imaging protocol: Radiologic exam of the chest. Views: 1 view. COMPARISON: 1. CT CHEST PE ABD PELVIS W 12/26/2022 5:36 AM 2. Chest radiograph 03/13/2022, CT chest 03/14/2022 FINDINGS: Lungs: Lungs are hypoinflated with diffusely coarsened interstitial markings, similar to comparisons. Streaky bibasilar opacities likely reflect atelectasis. Pleural spaces: No pleural effusion. No pneumothorax. Heart/Mediastinum: Cardiac silhouette is accentuated by exam technique and pulmonary hypoinflation. Bones/joints: Right reverse shoulder arthroplasty. Chronic dysmorphic appearance of the left proximal humerus. No acute osseous findings. IMPRESSION: 1. Low lung volumes with patchy atelectasis. 2. Mild pulmonary vascular congestion similar to comparisons.. Dictated and Authenticated by: Loren Cabezas MD. Ordering:GALILEO Shelley MD
[2022-12-26 08:01] LABS: Troponin I < 50 ng/L (<or=60)
--- NOTE | 2022-12-26 08:15 | RT.EKG_ITS ---
APPROVED REPORT Exam: Resting ECG Reason for Exam: chest pain Patient Location: E HR:92 bpm ECG Measurements Heart Rate 92 AXIS LA 160 P 35 QRSd 84 QRS 5 QT 351 T -11 QTc 435 Conclusion Sinus rhythm...normal P axis, V-rate 60- 99 Physician: no stemi. stable, unchanged
--- NOTE | 2022-12-26 09:12 | ED.PROG_ITS ---
Date of service: 12/26/22 Time of Service: 09:12 Medical Decision Making Patient was signed out to me by Dr. Saravia. Please refer to his HPI, physical exam, assessment and plan. At time of signout we are pending reassessment and repeat troponin and EKG. Both of these have returned normal, EKG is stable, no evidence of STEMI. Troponin normal. Lipase at the border of the upper limit of normal for pancreatitis, I do feel clinically her symptoms are secondary to pancreatitis. Mild enteritis on her CT scan. On reassessment patient is otherwise stable and shows no signs of acute surgical abdomen. Patient has been able to tolerate a p.o. trial here without difficulty. She feels better. She still does feel slightly weak, but is able to get up and ambulate well. No signs of syncope. Patient feels comfortable going home. Sister is at bedside and agrees with the plan as well. Symptoms inconsistent with STEMI/NSTEMI. Symptoms inconsistent with ACS. I do feel that discharge with home Zofran is appropriate at this time with diet. Discussed red flags for which to return. I have extensively reviewed the treatment plan and discharge instructions with the patient and their family. I have addressed all patient concerns at this time. The patient and family was made aware of what symptoms to monitor for that would warrant a return to the emergency department. Discussed the plan with the patient and family, they demonstrate verbal understanding and agreement with our assessment and plan at this time. The documentation in this chart was dictated using [employer] dictation software. Please excuse any dictation errors. Sign Out Sign Out Data: Sign Out Comment: Patient will require p.o. challenge after repeat troponin. Ondansetron has been sent to pharmacy. CT read as possible enteritis. Last updated by Karsten Saravia MD at 12/26/22 07:54 Discharge Plan Disposition Patient Disposition: Home Discharge Details Clinical Impression: Moderate nausea and vomiting, Acute pancreatitis Primary Care Provider: Gume Byers ED Provider: Manjinder Loaiza Home Meds and New Rx's Prescriptions: New ondansetron 4 mg tablet,disintegrating 4 mg PO BID 5 Days Qty: 10 0RF ondansetron 4 mg tablet,disintegrating 4 mg PO BID 5 Days Qty: 10 0RF Continued cholecalciferol (vitamin D3) 25 mcg (1,000 unit) tablet 2,000 unit PO DAILY loratadine 10 mg tablet 10 mg PO DAILY protein shake See Rx Instructions .ROUTE .COMPLEX Rx Instructions: Drinks 1 Protein Shake Daily; aspirin [Adult Aspirin Regimen] 81 mg tablet,delayed release (DR/EC) 81 mg PO DAILY Qty: 1 0RF atorvastatin 20 mg tablet 20 mg PO QPM Qty: 90 3RF calcium carbonate-vitamin D3 [Caltrate with Vitamin D3] 1 EACH tablet 1 ea PO DAILY Emergen-C 1,000 MG powder effervescent in packet 1,000 mg PO DAILY [id number] serr [Osteo Bi-Flex (5-Loxin)] 1 EACH tablet 1 tab PO DAILY atenolol 25 mg tablet 25 mg PO DAILY Qty: 90 3RF omeprazole 20 mg capsule,delayed release(DR/EC) 20 mg PO DAILY Qty: 90 4RF lisinopril 10 mg tablet 10 mg PO DAILY Qty: 90 0RF hydrochlorothiazide 12.5 mg capsule 12.5 mg PO DAILY Qty: 90 0RF acetaminophen [Tylenol Extra Strength] 500 mg Tablet 1,000 mg PO Q4H PRN Discharge Instructions Instructions: Pancreatitis (ED) Additional Instructions: At this time your symptoms appear consistent with early pancreatitis. Please stick with a liquid diet for the next 48 hours. Avoid any excessive sugary, carbohydrate laden, or greasy foods. After 48 hours gradually and slowly transition to small bites of bananas, rice, applesauce, and crackers and Jell-O. Please take the Zofran as needed for nausea and vomiting. If you find that you are nausea and vomiting continues, or you develop worsening weakness please return for reassessment. If you notice any worsening of your symptoms, or any new symptoms such as vomiting, diarrhea, fever, chills, shortness of breath, chest pain, numbness, weakness, or fainting , please return immediately to the emergency department for reevaluation. Please follow up with your primary care provider as soon as possible for reassessment and reevaluation. As always, it was a pleasure participating in your medical care today. Referrals: Gume Byers NP [Primary Care Provider] -
== END 2022-12-26 09:16 | disposition home or self-care (01) ==
PROVIDERS: Emergency Medicine; Emergency Provider Student in an Organized Health Care Education/Training Program; PCP Nurse Practitioner Family
DX: K85.90 Acute pancreatitis without necrosis or infection, unspecified (principal); R73.9 Hyperglycemia, unspecified; I25.10 Atherosclerotic heart disease of native coronary artery without angina pectoris; E78.5 Hyperlipidemia, unspecified; I10 Essential (primary) hypertension; I25.2 Old myocardial infarction; Z79.82 Long term (current) use of aspirin; R42 Dizziness and giddiness
CPT/HCPCS: 71275; 74177; 80053; 83690; 93005; 96361; 96374; 96376; 99285; 70450; 71045; 84484; 85025; 93010; J2405; J3490

== ENCOUNTER 2022-12-27 10:09 | Observation (INO) | payer MEDICARE, SELFPAY ==
[2022-12-27] VITALS (31 sets, daily range): BP systolic 100–144; BP diastolic 46–83; PULSE 70–90; RESP 11–21; TEMP 36.9–38.1; O2SAT 93–97
--- NOTE | 2022-12-27 10:30 | DI.RAD_ITS ---
Exam(s) XR PORTABLE CHEST AP EXAM: XR PORTABLE CHEST AP CLINICAL HISTORY: fever of unknown origin TECHNIQUE: 2D digital imaging was performed of the chest. Two images was obtained. An AP view was o btained. COMPARISON: CR,XR XR PORTABLE CHEST AP from 12/26/2022 FINDINGS: MEDIASTINUM: Normal. HEART: Normal. PULMONARY VASCULATURE: Normal. LUNGS: Clear. PLEURAL SPACE: No pleural effusion or pneumothorax. BONE:Within normal limits for the patient's age. There is a right reverse shoulder replacement. Ther e is again seen of old deformity of the proximal left humerus. OTHER FINDINGS:Normal. IMPRESSION: No acute pulmonary findings. DATA REPOSITORY: RADIATION DOSE DELIVERED:
--- NOTE | 2022-12-27 10:48 | ED.GENADUL_ITS ---
Discharge Plan Disposition Patient Disposition: Admit to [facility] Discharge Details Chief Complaint: Abd Prob Clinical Impression: Diarrhea, Weakness, Acute dehydration Primary Care Provider: Gume Byers ED Provider: Manjinder Loaiza Home Meds and New Rx's Prescriptions: No Action cholecalciferol (vitamin D3) 25 mcg (1,000 unit) tablet 2,000 unit PO DAILY loratadine 10 mg tablet 10 mg PO DAILY protein shake See Rx Instructions .ROUTE .COMPLEX Rx Instructions: Drinks 1 Protein Shake Daily; aspirin [Adult Aspirin Regimen] 81 mg tablet,delayed release (DR/EC) 81 mg PO DAILY Qty: 1 0RF atorvastatin 20 mg tablet 20 mg PO QPM Qty: 90 3RF calcium carbonate-vitamin D3 [Caltrate with Vitamin D3] 1 EACH tablet 1 ea PO DAILY Emergen-C 1,000 MG powder effervescent in packet 1,000 mg PO DAILY [id number] serr [Osteo Bi-Flex (5-Loxin)] 1 EACH tablet 1 tab PO DAILY atenolol 25 mg tablet 25 mg PO DAILY Qty: 90 3RF omeprazole 20 mg capsule,delayed release(DR/EC) 20 mg PO DAILY Qty: 90 4RF lisinopril 10 mg tablet 10 mg PO DAILY Qty: 90 0RF hydrochlorothiazide 12.5 mg capsule 12.5 mg PO DAILY Qty: 90 0RF acetaminophen [Tylenol Extra Strength] 500 mg Tablet 1,000 mg PO Q4H PRN ondansetron 4 mg tablet,disintegrating 4 mg PO BID 5 Days Qty: 10 0RF ondansetron 4 mg tablet,disintegrating 4 mg PO BID 5 Days Qty: 10 0RF Medical Decision Making This is a pleasant 82-year-old female with a past medical history of nonobstructive coronary artery disease, high cholesterol, hypertension, renal cyst, who was here on 12/26/2022, and initially seen and assessed by Dr. Saravia, and then subsequently signed out to me. She had abdominal pain and nausea at that time. She was rehydrated with normal saline and did well with this. She had a CT scan which was negative for acute process aside for evidence of mild enteritis. Lipase was elevated, and her symptoms appear consistent with a viral etiology of enteritis and mild pancreatitis. P.o. trial was performed and she did very well with this. We have discussed admission versus discharge and family and patient had elected the route of a outpatient trial with continued outpatient fluids orally, and prompt return if her symptoms persisted. Unfortunately today the patient developed mild fever, she has been tolerating p.o. well and has been eating appropriately, however she still feels notably weak. She has had no more vomiting but does admit to some epigastric achiness. She has difficulty walking around secondary to her worsening weakness. They did contact me this morning and it was my recommendation that they come back in for reassessment. Patient denies any chest pain or shortness of breath. She does admit to a mild headache and achiness which she describes as achy in general. It is present in the front to the back of her neck. She denies it being the worst headache of her life. It was gradual in onset. She denies any falls or trauma. Physical exam demonstrates mild weakness however the patient looks nontoxic and stable. Mild dry mucous membranes. Minimal epigastric achiness. At this time I feel that the patient has failed outpatient therapy, and would benefit from admission versus observation for dehydration mild weakness, however I am concerned with her new fever which is not present now but was documented at home. We will get an x-ray of the chest again, basic labs, and measure urine. Symptoms do not appear consistent with meningitis at this time, however her mild headache certainly does add a slight concern. I do not feel that based on her clinical assessment especially with the lack of meningeal signs, negative Kernig's and Brudzinski sign, otherwise well appearance that lumbar puncture is indicated at this time. We will gently rehydrate, evaluate for concerning etiologies, monitor closely and reassess. 1:30 PM Laboratory work-up demonstrates no white count, improving lipase, stable lactate, minimally low calcium, urinalysis negative for infection. COVID flu and RSV negative. C. difficile is negative but we are waiting on the rest of her stool cultures. Anecdotally the patient still feels very weak. She does n ot feel safe going home, nor does her caregiver who is also sick with similar symptoms. We did give the patient 1 L of normal saline this is helped mildly, but she still feels quite weak. She has not had vomiting but still does have nausea. She did have a few more episodes of diarrhea here in the ED which is certainly adding to her dehydration and her weakness status. I do feel that she would benefit from observation, especially with her failed outpatient management. Did contact the hospitalist Dr. Ware, he agrees with the plan. Patient will be admitted for observation for continued fluids. I have extensively reviewed the treatment plan with the patient. I have addressed all patient concerns at this time. I have also discussed the plan with the admitting physician and they agree with the current assessment and plan and have agreed to assume responsibility for the patient. All parties demonstrate verbal understanding and agreement with our assessment and plan at this time. The documentation in this chart was dictated using [employer] dictation software. Please excuse any dictation errors. FINDINGS: MEDIASTINUM: Normal. HEART: Normal. PULMONARY VASCULATURE: Normal. LUNGS: Clear. PLEURAL SPACE: No pleural effusion or pneumothorax. BONE:Within normal limits for the patient's age. There is a right reverse shoulder replacement. There is again seen of old deformity of the proximal left humerus. OTHER FINDINGS:Normal. IMPRESSION: No acute pulmonary findings. HPI General Date/Time Provider Initiated Documentation: 12/27/22 10:10 . HPI Narrative: This is a pleasant 82-year-old female with a past medical history of nonobstructive coronary artery disease, high cholesterol, hypertension, renal cyst, who was here on 12/26/2022, and initially seen and assessed by Dr. Saravia, and then subsequently signed out to me. She had abdominal pain and nausea at that time. She was rehydrated with normal saline and did well with this. She had a CT scan which was negative for acute process aside for evidence of mild enteritis. Lipase was elevated, and her symptoms appear consistent with a viral etiology of enteritis and mild pancreatitis. P.o. trial was performed and she did very well with this. We have discussed admission versus discharge and family and patient had elected the route of a outpatient trial with continued outpatient fluids orally, and prompt return if her symptoms persisted. Unfortunately today the patient developed mild fever, she has been tolerating p.o. well and has been eating appropriately, however she still feels notably weak. She has had no more vomiting but does admit to some epigastric achiness. She has difficulty walking around secondary to her worsening weakness. They did contact me this morning and it was my recommendation that they come back in for reassessment. Patient denies any chest pain or shortness of breath. She does admit to a mild headache and achiness which she describes as achy in general. It is present in the front to the back of her neck. She denies it being the wo rst headache of her life. It was gradual in onset. She denies any falls or trauma. Related Data Home Medications Medication Instructions Recorded Confirmed calcium carbonate 600 mg-vitamin 1 ea PO DAILY 11/23/12 12/27/22 D3 20 mcg (800 unit) tablet (Caltrate with Vitamin D3) ascorbic acid 1,000 1,000 mg PO DAILY 11/02/17 12/27/22 [id number]-[id number] powder effervescent pack (Emergen-C) glucosamine [id number]-[id number] 1 tab PO DAILY 11/02/17 12/27/22 yinka 1,500 mg-400 unit-100 mg tablet (Osteo Bi-Flex (5-Loxin)) acetaminophen 500 mg tablet 1,000 mg PO Q4H PRN 06/20/19 12/27/22 (Tylenol Extra Strength) protein shake See Rx Instructions .Route .COMPLEX 11/17/20 12/27/22 cholecalciferol (vitamin D3) 25 2,000 unit PO DAILY 01/12/22 12/27/22 mcg (1,000 unit) tablet aspirin 81 mg tablet,delayed 81 mg PO DAILY #1 tab 03/24/22 12/27/22 release (Adult Aspirin Regimen) atorvastatin 20 mg tablet 20 mg PO QPM #90 tabs 05/20/22 12/27/22 atenolol 25 mg tablet 25 mg PO DAILY #90 tabs 06/25/22 12/27/22 loratadine 10 mg tablet 10 mg PO DAILY 07/21/22 12/27/22 omeprazole 20 mg capsule,delayed 20 mg PO DAILY #90 tab-caps 09/03/22 12/27/22 release hydrochlorothiazide 12.5 mg capsule 12.5 mg PO DAILY #90 caps 12/14/22 12/27/22 lisinopril 10 mg tablet 10 mg PO DAILY #90 tabs 12/14/22 12/27/22 ondansetron 4 mg disintegrating 4 mg PO BID 5 days #10 tabs 12/26/22 12/27/22 tablet ondansetron 4 mg disintegrating 4 mg PO BID 5 days #10 tabs 12/26/22 12/27/22 tablet Previous Rx's Medication Instructions Recorded aspirin 81 mg tablet,delayed 81 mg PO DAILY #1 tab 03/24/22 release (Adult Aspirin Regimen) atorvastatin 20 mg tablet 20 mg PO QPM #90 tabs 05/20/22 atenolol 25 mg tablet 25 mg PO DAILY #90 tabs 06/25/22 omeprazole 20 mg capsule,delayed 20 mg PO DAILY #90 tab-caps 09/03/22 release hydrochlorothiazide 12.5 mg capsule 12.5 mg PO DAILY #90 caps 12/14/22 lisinopril 10 mg tablet 10 mg PO DAILY #90 tabs 12/14/22 ondansetron 4 mg disintegrating 4 mg PO BID 5 days #10 tabs 12/26/22 tablet ondansetron 4 mg disintegrating 4 mg PO BID 5 days #10 tabs 12/26/22 tablet Allergies Allergy/AdvReac Type Severity Reaction Status Date / Time oxycodone HCl [From Percocet] AdvReac Intermediate GI, Verified 12/27/22 10:15 Headache, Nausea codeine AdvReac Mild Upset Verified 12/27/22 10:15 Stomach General Stated Complaint: Abd Prob REBA: 3 Review of Systems All systems reviewed & are unremarkable except as noted in HPI and below PFSH All Active Problems (Updated 12/27/22 @ 15:18 by Manjinder Loaiza DO) Gordon's esophagus (Acute) EGD 02/05/13- and in 2016 NEG [facility]. PYLORI egd 12/31, 2016,[address] [facility] Essential hypertension (Acute 10/02/13) Hyperlipidemia (Acute) Non-ST elevation NC (NSTEMI) (Acute) 02/2022-treated at [facility] [place], cardiac catheterization showed nonobstructive cardiac disease, preserved heart function, treated with medical therapy Lung granuloma (Acute) 2021-incidental finding with chest CT-5 mm calcified granuloma Renal cyst (Acute) Multiple bilateral peripelvic renal cysts-. Ultrasound 2015 Lichen sclerosus (Acute) Moderate nausea and vomiting (Acute) Acute pancreatitis (Acute) Diarrhea (Acute) Weakness (Acute) Acute dehydration (Acute) Medical History Actinic keratosis Bilateral low back pain without sciatica (05/13/16) Closed fracture of proximal end of right humerus (06/11/19) Family history of colon cancer (02/05/10) father Hiatal hernia History of postoperative nausea and vomiting Left medial knee pain Lichen planus on rt [place] Osteopenia Rosacea Spondylosis of lumbar region without myelopathy or radiculopathy Traumatic closed displaced fracture of proximal end of left humerus with routine healing (01/03/18) 01/03/18 Varicose veins of lower extremity Vitiligo Yeast vaginitis Surgical History Appendectomy no date given BIOPSY (02/05/14) DISTAL ESOPHAGUS BX Cholecystectomy (~10/2001) Colonoscopy - MAC (~01/2014) EGD - IV Sedation (02/15/17) Endoscopy 02/15/17 [facility] Surgery CYST REMOVAL;DR. YEPEZ; 03/17/17 History of Mike fundoplication Ligation of fallopian tube Medial Branch Block 10/12/16; PAIN [facility] 10/12/16 S/P colonoscopic polypectomy (~05/2020) Dr. Nemesio [place] ? F/U Family History Mother , age 90 Diabetes Essential hypertension Heart disease Hyperlipidemia Breast cancer Father , age 78 Diabetes Essential hypertension Hyperlipidemia Lung cancer Brother Prostate cancer Hyperlipidemia Essential hypertension Asthma Sister , 59 Colon cancer Sister Diabetes Hyperlipidemia Sister No problems noted. Sister Asthma Sister Depression Brother Heart disease Brother Essential hypertension Hyperlipidemia Bladder cancer Son No problems noted. Daughter , 42 Diabetes Daughter No problems noted. Daughter No problems noted. Maternal Grandfather No problems noted. Paternal Grandfather No problems noted. Maternal Grandmother No problems noted. Paternal Grandmother No problems noted. Social History Smoking/Tobacco Use Status: Never Smoking risk assessment performed?: Yes Alcohol Intake: current Alcohol Intake frequency: holidays/special occasions only Drug use: Never Substance use type: does not use Counseling given: No Counseling provided: none Caregiver/Support person: No Household members: none Housing: apartment Do you need help understanding health information?: Never Pets and animals: No Sexually active: No Do you think of yourself as: straight/heterosexual Current gender identity: female What is your relationship status?: How often do you talk on the phone with friends or family?: three or more times per week How often do you get together with friends or relatives?: three or more times per week How often do you attend baptist or moravian services?: decline to answer Do you belong to any clubs or organized social groups?: no Panel score (0-1 are the most socially isolated patients): 1 What type of physical activity do you participate in: decline to answer Duration: 15-30 minutes/day Frequency: 5-6 times per week Chloe/Tenriism: Alevism Special chloe needs: No Seatbelt use: always Drive intox or ride w/intox patrol driver: No Do you feel safe at home: Yes Do you feel safe in your relationship?: Yes Female Reproductive History Menstrual Age of Menarche: 16 History History 4 Para 4 Hx # Term Pregnancies 4 Multiple births Hx # Pregnancies Ectopic pregnancies AB induced Hx Number of Living Children 4 AB spontaneous Past Pregnancies Del. Date GA/Weeks # Preg Succ Route Wgt Sex Labor Lgth Anesth esia Location Prov Complic 04/16/1961 vaginal Female 12/03/1963 vaginal Male 12/26/1968 vaginal Female 07/19/71 vaginal Female Exam Narrative Exam Narrative: 1.Const: Well-nourished, Well-developed, appearing stated age 2.Eyes: PERRL, no conjunctival injection, and symmetrical lids. 3.ENT: Atraumatic external nose and ears. Somewhat dry MM. Neck: Symmetric, trachea midline, No thyromegaly. Patient demonstrates good movement of cervical neck. There is no nuchal rigidity, no nuchal tenderness. Patient is able to flex the neck without any difficulty or significant pain. Negative Kernig's and Brudz inski sign. 4.CVS: +S1/S2, No murmurs or gallops. Peripheral pulses 2+ and equal in all extremities. Brisk capillary refill in all extremities. 5.RESP: Unlabored respiratory effort. Clear to auscultation bilaterally. No wheezes rales or rhonchi 6.GI: Soft,Nondistended, No hepatosplenomegaly. Mild epigastric tenderness. Bowel sounds present. No distention. No guarding or rebound. 7.MSK: Normocephalic/Atraumatic, Extremities w/o deformity or ttp No cyanosis or clubbing, Normal movement of all extremities 8.Skin: Warm, Dry. No rashes or lesions. 9.Neuro: cornice upholsterer II-XII grossly intact. Sensation grossly intact, no focal neurologic deficits. 10.Psych: (AAO) x3. Appropriate mood and affect Course Vital Signs Vital signs: Vital Signs Temperature 36.9 C 12/27/22 10:11 Pulse 82 12/27/22 10:11 Respiratory Rate 16 12/27/22 10:11 Blood Pressure 135/72 12/27/22 10:11 Pulse Oximetry 94 12/27/22 10:11 Temperature 36.9 C 12/27/22 10:11 Temperature Source Oral 12/27/22 10:11 Pulse 82 12/27/22 10:11 Respiratory Rate 16 12/27/22 10:11 Respiratory Effort Normal 12/27/22 10:14 Blood Pressure 135/72 12/27/22 10:11 Blood Pressure Position Sitting 12/27/22 10:11 Pulse Oximetry 94 12/27/22 10:11 Oxygen Delivery Method Room Air 12/27/22 10:11 Oxygen Flow Rate 0 12/27/22 10:11 Pain Level 6 12/27/22 10:11 Lab/Test Results Lab/Test Results: 12/27/22 10:35 Blood Blood Culture - Pending 12/27/22 10:35 Blood Blood Culture - Pending
[2022-12-27 10:55] LABS: Lactate 1.3 mmol/L (0.6-1.4)
[2022-12-27 10:56] LABS: Abs Immature Grans 0.02 10^3/uL (0.0-0.06); Absolute Basophil Count 0.01 10^3/uL (0.0-0.2); Absolute Lymphocyte Count 0.33 10^3/uL (1.2-3.4); Absolute Monocyte Count 0.67 10^3/uL (0.1-0.8); Absolute Neutrophil Count 3.82 10^3/uL (1.2-6.7); Basophils % 0.2; HCT 39.1 % (36.0-46.0); HGB 12.9 g/dL (11.2-15.7); Immature Grans % 0.4; Lymphocytes % 6.8; MCH 28.5 pg (27.0-33.0); MCV 86 fL (80-95); MPV 10.2 fL (8.0-11.0); Monocytes % 13.8; Neutrophils % 78.8; Platelet Count 169 10^3/uL (130-400); RBC 4.53 10^6/uL (3.93-5.22); RDW 14.8 % (11.7-14.6); RDW-SD 47.2 fL; WBC 4.85 10^3/uL (4.4-10.8)
[2022-12-27] MEDS: Ondansetron 4 MG/2 ML VIAL IVP ×3 (11:01→23:20)
[2022-12-27] MEDS: Normal Saline 1,000 ML 1000 ML IV (11:01)
[2022-12-27 11:15] LABS: Bilirubin Negative (Negative); Blood Negative (Negative); Clarity Sl Cloudy (Clear); Glucose Negative (Negative); Ketones Negative (Negative); Leukocyte Esterase Trace (Negative); Nitrite Negative (Negative); Specific Gravity 1.025 (1.005-1.025); Urobilinogen 0.2 mg/dL (Up to 0.2); pH 5.5 (5-8)
[2022-12-27 11:16] LABS: ALT 31 U/L (14-59); AST 27 U/L (15-37); Albumin 3.2 g/dL (3.4-5.0); Alkaline Phosphatase 62 U/L (46-116); BUN 47 mg/dL (7-18); Bilirubin, Total 0.3 mg/dL (0.2-1.0); CREATININE 1.3 mg/dL (0.55-1.02); Chloride 103 mmol/L (98-107); Estimated GFR 41.57 (mL/min/1.73m2); Glucose 111 mg/dL (74-106); Lipase 12 U/L (16-77); Potassium 3.6 mmol/L (3.5-5.1); Sodium 137 mmol/L (136-145); Total Protein 6.3 g/dL (6.4-8.2)
[2022-12-27 11:21] LABS: Bacteria Few HPF (Negative); C & S Indicated? No/Sq. Contamination; Casts 0-2 Hyaline LPF (Negative); Crystals Negative HPF (Negative); Epithelial Cells Many HPF (Negative); Mucus Negative (Negative); RBC Negative HPF (0-2); WBC 0-2 HPF (0-5)
[2022-12-27 11:35] LABS: PTT Activated 20.1 sec (21.5-31.9); Prothrombin Time 10.1 sec (9.3-11.0)
[2022-12-27 11:38] LABS: COVID-19 PCR Negative (Negative); Influenza A PCR Negative (Negative); Influenza B PCR Negative (Negative); RSV PCR Negative (Negative)
[2022-12-27 11:44] LABS: Source Nasopharynx
[2022-12-27 14:26] LABS: C Diff PCR Negative (Negative)
[2022-12-27 16:05] LABS: Magnesium 1.9 mg/dL (1.8-2.4)
--- NOTE | 2022-12-27 18:42 | W.PM.HP.N ---
Date of service: 12/27/22 Time of Service: 18:42 Assessment and Plan Assessment and plan (1) Weakness: Status: Acute Assessment and plan: S/P 2d nausea, vomiting, diarrhea. Dehydrated and weak; IVF, PT eval Check labs in am (2) Diarrhea: Status: Acute Assessment and plan: Imodium prn (3) Essential hypertension: Status: Chronic Assessment and plan: Chronic, stable, continue home meds Hold lisinopril (4) Moderate nausea and vomiting: Status: Acute Assessment and plan: Vomiting has resolved; continues to have nausea, zofran prn, liquids til improved adv to full (5) Hyperlipidemia: Status: Chronic Assessment and plan: Chronic - continue Atorvastatin - home med Qualifiers: Hyperlipidemia type: mixed hyperlipidemia Qualified Code(s): E78.2 - Mixed hyperlipidemia (6) Acute dehydration: Status: Acute Assessment and plan: BUN 47, creat 1.3 LR IV 75 ml/h x 1 litre (7) DVT prophylaxis: Status: Acute Assessment and plan: Enoxaparin (8) Discharge planning issues: Status: Acute Assessment and plan: Home when stable, no services; lives with care transition coordinator Discussed with Dr Ware History of Present Illness History of Present Illness Chief Complaint: Weak, nausea, fever Narrative: This is a pleasant 82-year-old female with a past medical history of nonobstructive coronary artery disease, high cholesterol, hypertension, renal cyst, who was seen at the [facility] ED on 12/26/2022, for abdominal pain and nausea at that time.? She was rehydrated with normal saline and did well with this.? She had a CT scan which was negative for acute process aside for evidence of mild enteritis.? Lipase was elevated, and her symptoms appeared consistent with a viral etiology of enteritis and mild pancreatitis.? P.O. trial was performed and she did very well with this.? Discussed admission versus discharge and family and patient had elected the route of a outpatient trial with continued outpatient fluids orally, and prompt return if her symptoms persisted.? Unfortunately today the patient developed mild fever, she has been tolerating p.o. well and has been eating appropriately, however she still feels notably weak.? She has had no more vomiting but does admit to some epigastric achiness.? She had difficulty walking around secondary to her worsening weakness.?Patient denied any chest pain or shortness of breath.? She did admit to a mild headache and achiness which she described as achy in general.? It is present in the front to the back of her neck.? She denied it being the worst headache of her life.? It was gradual in onset.? She denied any falls or trauma. Physical exam demonstrates mild weakness however the patient looked nontoxic and stable.? Mild dry mucous membranes.? Minimal epigastric achiness. Laboratory work-up demonstrated no white count, improving lipase, stable lactate, minimally low calcium, urinalysis negative for infection.? COVID flu and RSV negative.? C. difficile is negative but we are waiting on the rest of her stool cultures.? Anecdotally the patient still felt very weak.? She did not feel safe going home, nor does her caregiver who is also sick with similar symptoms.? Patient received 1 L of normal saline which helped mildly, but she still felt quite weak.? She has not had vomiting but still does have nausea.? She did have a few more episodes of diarrhea in the ED which is certainly adding to her dehydration and her weakness status.?The patient failed outpatient therapy, and was placed on observation status for mild dehydration and mild weakness, however now has a fever Review of Systems All systems reviewed & are unremarkable except as noted in HPI and below PFSH All Active Problems (Updated 12/27/22 @ 19:01 by Elizabeth Fair NP) Discharge planning issues (Acute) DVT prophylaxis (Acute) Gordon's esophagus (Acute) EGD 02/05/13- and in 2016 NEG H. PYLORI egd 12/31, 2016,[address] [facility] due for EGD in 2022 Essential hypertension (Chronic 10/02/13) Hyperlipidemia (Chronic) Non-ST elevation [place] (NSTEMI) (Acute) 02/2022-treated at [facility], cardiac catheterization showed nonobstructive cardiac disease, preserved heart function, treated with medical therapy Lung granuloma (Acute) 2021-incidental finding with chest CT-5 mm calcified granuloma Renal cyst (Acute) Multiple bilateral peripelvic renal cysts-. Ultrasound 2016 Lichen sclerosus (Acute) Moderate nausea and vomiting (Acute) Acute pancreatitis (Acute) Diarrhea (Acute) Weakness (Acute) Acute dehydration (Acute) Medical History Actinic keratosis Bilateral low back pain without sciatica (05/13/16) Closed fracture of proximal end of right humerus (06/11/19) Family history of colon cancer (02/05/10) father Hiatal hernia History of postoperative nausea and vomiting Left medial knee pain Lichen planus on rt [place] Osteopenia Rosacea Spondylosis of lumbar region without myelopathy or radiculopathy Traumatic closed displaced fracture of proximal end of left humerus with routine healing (01/03/18) 01/03/18 Varicose veins of lower extremity Vitiligo Yeast vaginitis Surgical History Appendectomy no date given BIOPSY (02/05/14) DISTAL ESOPHAGUS BX Cholecystectomy (~10/2001) Colonoscopy - MAC (~01/2014) EGD - IV Sedation (02/15/17) Endoscopy 02/15/17 [place] Finger Surgery CYST REMOVAL;DR. YEPEZ; 03/17/17 History of Mike fundoplication Ligation of fallopian tube Medial Branch Block 10/12/16; PAIN CLINIC 10/12/16 S/P colonoscopic polypectomy (~05/2020) Dr. Nemesio Argueta ? F/U Family History Mother , age 90 Diabetes Essential hypertension Heart disease Hyperlipidemia Breast cancer Father , age 78 Diabetes Essential hypertension Hyperlipidemia Lung cancer Brother Prostate cancer Hyperlipidemia Essential hypertension Asthma Sister , 59 Colon cancer Sister Diabetes Hyperlipidemia Sister No problems noted. Sister Asthma Sister Depression Brother Heart disease Brother Essential hypertension Hyperlipidemia Bladder cancer Son No problems noted. Daughter , 42 Diabetes Daughter No problems noted. Daughter No problems noted. Maternal Grandfather No problems noted. Paternal Grandfather No problems noted. Maternal Grandmother No problems noted. Paternal Grandmother No problems noted. Social History Smoking/Tobacco Use Status: Never Smoking risk assessment performed?: Yes Alcohol Intake: current Alcohol Intake frequency: holidays/special occasions only Drug use: Never Substance use type: does not use Counseling given: No Counseling provided: none Caregiver/Support person: No Household members: none Housing: apartment Do you need help understanding health information?: Never Pets and animals: No Sexually active: No Do you think of yourself as: straight/heterosexual Current gender identity: female What is your relationship status?: How often do you talk on the phone with friends or family?: three or more times per week How often do you get together with friends or relatives?: three or more times per week How often do you attend baptism or alevism services?: decline to answer Do you belong to any clubs or organized social groups?: no Panel score (0-1 are the most socially isolated patients): 1 What type of physical activity do you participate in: decline to answer Duration: 15-30 minutes/day Frequency: 5-6 times per week Chloe/Yarsani: Mosque Special chloe needs: No Seatbelt use: always Drive intox or ride w/intox 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 Date GA/Weeks # Preg Succ Route Wgt Sex Labor Lgth Anesthesia Location Prov Complic 04/16/1961 vaginal Female 12/03/1963 vaginal Male 12/26/1968 vaginal Female 07/19/71 vaginal Female Meds Allergies and Home Medications Allergies Allergy/AdvReac Type Severity Reaction Status Date / Time oxycodone HCl [From Percocet] AdvReac Intermediate GI, Verified 12/27/22 10:15 Headache, Nausea codeine AdvReac Mild Upset Verified 12/27/22 10:15 Stomach Home Medications Medication Instructions Recorded Confirmed Type calcium carbonate 600 mg-vitamin 1 ea PO DAILY 11/23/12 12/27/22 History D3 20 mcg (800 unit) tablet (Caltrate with Vitamin D3) ascorbic acid 1,000 1,000 mg PO DAILY 11/02/17 12/27/22 History qy-lmibbholyedb-gvrcbgdu powder effervescent pack (Emergen-C) glucosamine [id number] 1 tab PO DAILY 11/02/17 12/27/22 History yinka 1,500 mg-400 unit-100 mg tablet (Osteo Bi-Flex (5-Loxin)) acetaminophen 500 mg tablet 1,000 mg PO Q4H PRN 06/20/19 12/27/22 History (Tylenol Extra Strength) protein shake See Rx Instructions .Route .COMPLEX 11/17/20 12/27/22 History cholecalciferol (vitamin D3) 25 2,000 unit PO DAILY 01/12/22 12/27/22 History mcg (1,000 unit) tablet aspirin 81 mg tablet,delayed 81 mg PO DAILY #1 tab 03/24/22 12/27/22 Rx release (Adult Aspirin Regimen) atorvastatin 20 mg tablet 20 mg PO QPM #90 tabs 05/20/22 12/27/22 Rx atenolol 25 mg tablet 25 mg PO DAILY #90 tabs 06/25/22 12/27/22 Rx loratadine 10 mg tablet 10 mg PO DAILY 07/21/22 12/27/22 History omeprazole 20 mg capsule,delayed 20 mg PO DAILY #90 tab-caps 09/03/22 12/27/22 Rx release hydrochlorothiazide 12.5 mg capsule 12.5 mg PO DAILY #90 caps 12/14/22 12/27/22 Rx lisinopril 10 mg tablet 10 mg PO DAILY #90 tabs 12/14/22 12/27/22 Rx ondansetron 4 mg disintegrating 4 mg PO BID 5 days #10 tabs 12/26/22 12/27/22 Rx tablet ondansetron 4 mg disintegrating 4 mg PO BID 5 days #10 tabs 12/26/22 12/27/22 Rx tablet Exam Narrative Exam Narrative: 1.Const: Well-nourished, Well-developed, appearing stated age 2.Eyes: PERRL, no conjunctival injection, and symmetrical lids. 3.ENT: Atraumatic external nose and ears. Somewhat dry MM. Neck: Symmetric, trachea midline, No thyromegaly. Patient demonstrates good movement of cervical neck. There is no nuchal rigidity, no nuchal tenderness. Patient is able to flex the neck without any difficulty or significant pain. Negative Kernig's and Brudzinski sign. 4.CVS: +S1/S2, No murmurs or gallops. Peripheral pulses 2+ and equal in all extremities. Brisk capillary refill in all extremities. 5.RESP: Unlabored respiratory effort. Clear to auscultation bilaterally. No wheezes rales or rhonchi 6.GI: Soft,Nondistended, No hepatosplenomegaly. Mild epigastric tenderness. Bowel sounds present. No distention. No guarding or rebound. 7.MSK: Normocephalic/Atraumatic, Extremities w/o deformity or ttp No cyanosis or clubbing, Normal movement of all extremities 8.Skin: Warm, Dry. No rashes or lesions. 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 Sensation grossly intact, no focal neurologic deficits. 10.Psych: (AAO) x3. Appropriate mood and affect Results Labs 12/27/22 10:40 12/27/22 10:40 Labs: Laboratory Results - last 24 hr 12/27/22 12/27/22 12/27/22 10:40 10:40 10:40 WBC RBC Hgb Hct MCV MCH MCHC RDW Plt Count MPV Immature Gran % Neutrophils % Lymphocytes % Monocytes % Eosinophils % Basophils % Nucleated RBC % Absolute Neutrophils Absolute Lymphocytes Absolute Monocytes Absolute Eosinophils Absolute Basophils PT INR APTT VBG Lactate 1.3 Sodium 137 Potassium 3.6 Chloride 103 Carbon Dioxide 25.0 Anion Gap 9.0 BUN 47 H Creatinine 1.3 H Est GFR (CKD-EPI 2020) 41.57 Glucose 111 H Calcium 8.0 L Magnesium Total Bilirubin 0.3 AST 27 ALT 31 Alkaline Phosphatase 62 Troponin I Total Protein 6.3 L Albumin 3.2 L Lipase 12 L Cancelled Urine Color Urine Clarity Urine pH Ur Specific [place] Urine Protein Urine Ketones Urine Blood Urine Nitrite Urine Bilirubin Urine Urobilinogen Ur Leukocyte Esterase Urine RBC Urine WBC Ur Epithelial Cells Urine Crystals Urine Bacteria Urine Casts Urine Mucus Ur Culture Indicated? Urine Glucose Stl C.difficile Tox PCR COVID-19 Source SARS-CoV-2 (PCR) Influenza Type A (PCR) Influenza Type B (PCR) RSV (PCR) 12/27/22 12/27/22 12/27/22 10:40 10:40 10:44 WBC 4.85 RBC 4.53 Hgb 12.9 D Hct 39.1 MCV 86 MCH 28.5 MCHC 33.0 RDW 14.8 H Plt Count 169 MPV 10.2 Immature Gran % 0.4 Neutrophils % 78.8 Lymphocytes % 6.8 Monocytes % 13.8 Eosinophils % 0.0 Basophils % 0.2 Nucleated RBC % 0.0 Absolute Neutrophils 3.82 Absolute Lymphocytes 0.33 L Absolute Monocytes 0.67 Absolute Eosinophils 0.00 Absolute Basophils 0.01 PT INR APTT VBG Lactate Sodium Potassium Chloride Carbon Dioxide Anion Gap BUN Creatinine Est GFR (CKD-EPI 2020) Glucose Calcium Magnesium 1.9 Total Bilirubin AST ALT Alkaline Phosphatase Troponin I Total Protein Albumin Lipase Urine Color Urine Clarity Urine pH Ur Specific [place] Urine Protein Urine Ketones Urine Blood Urine Nitrite Urine Bilirubin Urine Urobilinogen Ur Leukocyte Esterase Urine RBC Urine WBC Ur Epithelial Cells Urine Crystals Urine Bacteria Urine Casts Urine Mucus Ur Culture Indicated? Urine Glucose Stl C.difficile Tox PCR COVID-19 Source Nasopharynx SARS-CoV-2 (PCR) Negative Influenza Type A (PCR) Negative Influenza Type B (PCR) Negative RSV (PCR) Negative 12/27/22 12/27/22 12/27/22 11:03 11:15 13:23 WBC RBC Hgb Hct MCV MCH MCHC RDW Plt Count MPV Immature Gran % Neutrophils % Lymphocytes % Monocytes % Eosinophils % Basophils % Nucleated RBC % Absolute Neutrophils Absolute Lymphocytes Absolute Monocytes Absolute Eosinophils Absolute Basophils PT 10.1 INR 1.0 APTT 20.1 L VBG Lactate Sodium Potassium Chloride Carbon Dioxide Anion Gap BUN Creatinine Est GFR (CKDEPI 2020) Glucose Calcium Magnesium Total Bilirubin AST ALT Alkaline Phosphatase Troponin I Total Protein Albumin Lipase Urine Color Yellow Urine Clarity Sl Cloudy Urine pH 5.5 Ur Specific [place] 1.025 Urine Protein Trace H Urine Ketones Negative Urine Blood Negative Urine Nitrite Negative Urine Bilirubin Negative Urine Urobilinogen 0.2 Ur Leukocyte Esterase Trace H Urine RBC Negative Urine WBC 0-2 Ur Epithelial Cells Many Urine Crystals Negative Urine Bacteria Few Urine Casts 0-2 Hyaline Urine Mucus Negative Ur Culture Indicated? No/Sq. Contamination Urine Glucose Negative Stl C.difficile Tox PCR Negative COVID-19 Source SARS-CoV-2 (PCR) Influenza Type A (PCR) Influenza Type B (PCR) RSV (PCR) 12/27/22 15:52 WBC RBC Hgb Hct MCV MCH MCHC RDW Plt Count MPV Immature Gran % Neutrophils % Lymphocytes % Monocytes % Eosinophils % Basophils % Nucleated RBC % Absolute Neutrophils Absolute Lymphocytes Absolute Monocytes Absolute Eosinophils Absolute Basophils PT INR APTT VBG Lactate Sodium Cancelled Potassium Cancelled Chloride Cancelled Carbon Dioxide Cancelled Anion Gap Cancelled BUN Cancelled Creatinine Cancelled Est GFR (CKD-EPI 2020) Cancelled Glucose Cancelled Calcium Cancelled Magnesium Total Bilirubin Cancelled AST Cancelled ALT Cancelled Alkaline Phosphatase Cancelled Troponin I Cancelled Total Protein Cancelled Albumin Cancelled Lipase Urine Color Urine Clarity Urine pH Ur Specific [place] Urine Protein Urine Ketones Urine Blood Urine Nitrite Urine Bilirubin Urine Urobilinogen Ur Leukocyte Esterase Urine RBC Urine WBC Ur Epithelial Cells Urine Crystals Urine Bacteria Urine Casts Urine Mucus Ur Culture Indicated? Urine Glucose Stl C.difficile Tox PCR COVID-19 Source SARS-CoV-2 (PCR) Influenza Type A (PCR) Influenza Type B (PCR) RSV (PCR) Last Vital Signs Temp 38.1 C H 12/27/22 15:30 Pulse 80 12/27/22 15:30 Resp 18 12/27/22 15:30 BP 144/83 H 12/27/22 15:30 Pulse Ox 95 12/27/22 15:30 Time Spent Time spent with Patient: 55-74 minutes Time was spent: preparing to see the patient(eg.review tests), obtaining and/or reviewing separately otained hiistory, ordering medications,tests, procedures, referring, communicating with other health care center manager, indepentently interpreting results, counseling the patient and care coordination
[2022-12-27] MEDS: Enoxaparin 30 MG/0.3 ML SYR SC (20:52)
[2022-12-27] MEDS: Atorvastatin 20 MG TAB PO (20:53)
[2022-12-27] MEDS: Loperamide 2 MG CAP 4 MG PO (20:53)
[2022-12-28] VITALS (7 sets, daily range): BP systolic 97–129; BP diastolic 60–85; PULSE 55–76; RESP 14–20; TEMP 36.9–37.7; O2SAT 92–98
[2022-12-28 06:18] LABS: Abs Immature Grans 0.02 10^3/uL (0.0-0.06); Absolute Basophil Count 0.02 10^3/uL (0.0-0.2); Absolute Eosinophil Count 0.01 10^3/uL (0.0-0.7); Absolute Lymphocyte Count 0.84 10^3/uL (1.2-3.4); Absolute Monocyte Count 0.66 10^3/uL (0.1-0.8); Absolute Neutrophil Count 2.24 10^3/uL (1.2-6.7); Basophils % 0.5; Eosinophils % 0.3; HCT 36.2 % (36.0-46.0); HGB 11.8 g/dL (11.2-15.7); Immature Grans % 0.5; Lymphocytes % 22.2; MCH 28.4 pg (27.0-33.0); MCHC 32.6 % (32.0-36.0); MCV 87 fL (80-95); MPV 10.5 fL (8.0-11.0); Monocytes % 17.4; Neutrophils % 59.1; Platelet Count 143 10^3/uL (130-400); RBC 4.16 10^6/uL (3.93-5.22); RDW 14.7 % (11.7-14.6); RDW-SD 47.3 fL; WBC 3.79 10^3/uL (4.4-10.8)
[2022-12-28 06:29] LABS: BUN 28 mg/dL (7-18); CREATININE 0.8 mg/dL (0.55-1.02); Calcium 8.1 mg/dL (8.5-10.1); Chloride 106 mmol/L (98-107); Estimated GFR 74.44 (mL/min/1.73m2); Glucose 91 mg/dL (74-106); Magnesium 1.8 mg/dL (1.8-2.4); Potassium 3.3 mmol/L (3.5-5.1); Sodium 140 mmol/L (136-145)
[2022-12-28] MEDS: Acetaminophen 325 MG TAB PO ×2 (07:40→23:32)
[2022-12-28] MEDS: Lisinopril 10 MG TAB PO (07:41)
[2022-12-28] MEDS: Omeprazole 20 MG CAPCR PO (07:41)
[2022-12-28] MEDS: hydroCHLOROthiazide 12.5 MG TAB PO (07:41)
[2022-12-28] MEDS: Ondansetron 4 MG/2 ML VIAL IVP ×2 (07:42→23:32)
[2022-12-28] MEDS: Aspirin E.C. 81 MG TABEC PO (07:42)
[2022-12-28] MEDS: Atenolol 25 MG TAB PO (09:09)
--- NOTE | 2022-12-28 09:24 | INITIAL_ITS ---
- If Service Date Differs Date of service: 12/28/22 Time of Service: 09:24 Care Management Initial Assess REASON FOR HOSPITALIZATION:: Dehydration, Colitis PAST MEDICAL HISTORY/PAST SURGICAL HISTORY:: Medical History . Actinic keratosis. Bilateral low back pain without sciatica (05/13/16). Closed fracture of proximal end of right humerus (06/11/19). Family history of colon cancer (02/05/10). father. Hiatal hernia. History of postoperative nausea and vomiting. Left medial knee pain. Lichen planus. on rt [place]. Osteopenia. Rosacea. Spondylosis of lumbar region without myelopathy or radiculopathy. Traumatic closed displaced fracture of proximal end of left humerus with routine healing (01/03/18). 01/03/18. Varicose veins of lower extremity. Vitiligo. Yeast vaginitis. Surgical History . Appendectomy. no date given. BIOPSY (02/05/14). DISTAL ESOPHAGUS BX. Cholecystectomy (~10/2001). Colonoscopy - MAC (~01/2014). EGD - IV Sedation (02/15/17). Endoscopy. 02/15/17 [facility]. Finger Surgery. CYST REMOVAL;DR. YEPEZ; 03/17/17. History of Mike fundoplication. Ligation of fallopian tube. Medial Branch Block. 10/12/16; PAIN CLINIC 10/12/16. S/P colonoscopic polypectomy (~05/2020). Dr. Herr [facility] ? F/U PREVIOUS FUNCTIONAL STATUS/SOCIAL/FAMILY SUPPORTS:: Maite lives alone in an apartment in [place], [place]. 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 Maite has a large supportive family consisting of several siblings, a son and a daughter. Maite shares that she had a second daughter who at the age of 42 due to complications of diabetes. Maite is independent at baseline but she no longer drives. ADVANCE DIRECTIVES:: On file; daughter Juliana Hines is appointed as Health Care Agent. Has patient been provided with info about the portal/API?: Yes Did the patient sign up for the portal?: Yes CODE STATUS:: Full Code INSURANCE COVERAGE / FINANCIAL ISSUES:: [employer] and Medicare. CURRENT HOME/COMMUNITY SERVICES/EQUIPMENT:: No current services or equipment. PRIMARY CARE PHYSICIAN:: Gume Nam POTENTIAL DISCHARGE NEEDS:: Follow up appointments. PATIENT/FAMILY EDUCATION NEEDS:: Review of discharge instructions, discuss Ask Me Three. ANTICIPATED BARRIERS TO DISCHARGE:: None anticipated barriers at this time. TRANSPORTATION:: Via EMS. PLAN:: Maite will return home with VNA services, if indiciated per PT. She will follow up with her PCP and plan of care as prescribed. She will transport via private vehicle.
[2022-12-28] MEDS: Loperamide 2 MG CAP PO ×2 (09:31→12:18)
--- NOTE | 2022-12-28 11:19 | PT.INIE ---
Date of service: 12/28/22 Time of Service: 11:00 PT Notes Visit Reasons: Dehydration, Colitis Inpatient Physical Therapy Evaluation Date: 12/28/2022 Referring Doctor:? Elizabeth Fair NP PT Orders: PT CONSULT: Limited ability Precautions: Fall. Standard. Activity as tolerated. Patient Profile/Admitting Diagnosis:? Patient is a 82-year-old female who presented to the ED on 12/28/2022 due to abdominal pain and nausea. Patient is diagnosed with acute dehydration, diarrhea, weakness, nausea, hyperlipidemia, and essential HTN. PMHX: All Active Problems?(Updated 12/27/22 @ 19:01 by Elizabeth Fair NP) Discharge planning issues (Acute) DVT prophylaxis (Acute) Gordon's esophagus (Acute) EGD 02/05/13- and in 2016 [facility]G [facility]. [facility]ORI egd 12/31, 2016,[address] [facility] Essential hypertension (Chronic 10/02/13) Hyperlipidemia (Chronic) Non-ST elevation [place] (NSTEMI) (Acute) 02/2022-treated at [facility], cardiac catheterization showed nonobstructive cardiac disease, preserved heart function, treated with medical therapy Lung granuloma (Acute) 2021-incidental finding with chest CT-5 mm calcified granuloma Renal cyst (Acute) Multiple bilateral peripelvic renal cysts-.? Ultrasound 2015 Lichen sclerosus (Acute) Moderate nausea and vomiting (Acute) Acute pancreatitis (Acute) Diarrhea (Acute) Weakness (Acute) Acute dehydration (Acute) Medical History? Actinic keratosis Bilateral low back pain without sciatica (05/13/16) Closed fracture of proximal end of right humerus (06/11/19) Family history of colon cancer (02/05/10) father Hiatal hernia History of postoperative nausea and vomiting Left medial knee pain Lichen planus on rt [place] Osteopenia Rosacea Spondylosis of lumbar region without myelopathy or radiculopathy Traumatic closed displaced fracture of proximal end of left humerus with routine healing (01/03/18) 01/03/18 Varicose veins of lower extremity Vitiligo Yeast vaginitis Surgical History? Appendectomy no date given BIOPSY (02/05/14) DISTAL ESOPHAGUS BX Cholecystectomy (~10/2001) Colonoscopy - MAC (~01/2014) EGD - IV Sedation (02/15/17) Endoscopy 02/15/17 [facility] Finger Surgery CYST REMOVAL;DR. YEPEZ; 03/17/17 History of Mike fundoplication Ligation of fallopian tube Medial Branch Block 10/12/16; [facility]IN [facility]IC 10/12/16 S/P colonoscopic polypectomy (~05/2020) Dr. [facility] ? F/U Social History/Home Situation: Patient lives alone in a one-story apartment with no steps to enter.? She is independent with all aspects of ADLs without the need for an assistive ambulatory device nor adaptive equipment.? She still drives. Equipment Owned/DME: None Subjective: Denies abdominal pain. Mildly nauseous at rest and with walking. Has had fluid diet since she arrived. Objective: General Observation: Seated on bedside chair. Mental Status: Alert and oriented x 4 Pain: Denies ROM: Right Upper Extremity: Shoulder Flexion WFL. Shoulder abduction WFL. Elbow flexion WFL. Wrist flexion WFL. Functional opening and closing of hand WFL. Left Upper Extremity: Shoulder Flexion WFL. Shoulder abduction WFL. Elbow flexion WFL. Wrist flexion WFL. Functional opening and closing of hand WFL. Right Lower Extremity: Hip flexion WFL. Hip abduction WFL. Knee flexion WFL. Ankle dorsiflexion WFL. Ankle plantarflexion WFL. Left Lower Extremity: Hip flexion WFL. Hip abduction WFL. Knee flexion WFL. Ankle dorsiflexion WFL. Ankle plantarflexion WFL. Strength: Right Upper Extremity: Shoulder flexors 4-/5. Shoulder abductors 4-/5. Elbow flexors 5/5. Elbow extensors 5/5. Spray Cementer strong. Left Upper Extremity: Shoulder flexors 5/5. Shoulder abductors 5/5. Elbow flexors 5/5. Elbow extensors 5/5. Spray Cementer strong. Right Lower Extremity: Hip flexors 5/5. Hip abductors 5/5. Knee flexors 5/5. Knee extensors 5/5. Ankle dorsiflexors 5/5. Ankle plantarflexors 5/5. Left Lower Extremity:Hip flexors 5/5. Hip abductors 5/5. Knee flexors 5/5. Knee extensors 5/5. Ankle dorsiflexors 5/5. Ankle plantarflexors 5/5. Bed Mobility/Transfers: Rolling to left independent Supine to sit Independent Sit to supine Independent Sit to stand Independent Stand to sit Independent Bed to chair Independent Chair to bed Independent Gait: Patient ambulated 250 with FWW with supervision and wheelchair follow. Reports being weak as she has not had anything to eat since admission being on a fluid diet. No SOB. No LOB. Balance: Static Sitting: Normal Dynamic Sitting: Normal Static Standing: Good Dynamic Standing: Good Special Tests: Mobility Limitations Standardized Measure [facility] 6 clicks Basic Mobility Inpatient Short Form: Raw Score: 24 ? CMS Score: 0% deficit Informed Consent/Education:? Patient instructed in purpose of PT consult and plan of care. Assessment: Patient is a 82-year-old female who presented to the ED on 12/28/2022 due to abdominal pain and nausea. Patient is diagnosed with acute dehydration, diarrhea, weakness, nausea, hyperlipidemia, and essential HTN. Patient presents with clinical signs and symptoms consistent with current/admitting diagnoses that have resulted to mobility limitations, gait instability, generalized weakness, and impairment of motor control as demonstrated by the following impairment level findings: 1.? Generalized weakness 2.? Impaired activity tolerance Impairments are contributing to the following functional limitations: 1.? Dependent bed mobility skills 2.? Increased completion time for mobility ADL performance 3.? Increased fall risk Patient is assessed as a 94076 moderate complexity based on the following: History: Patient is a 82-year-old female who presented to the ED on 12/28/2022 due to abdominal pain and nausea. Patient is diagnosed with acute dehydration, diarrhea, weakness, nausea, hyperlipidemia, and essential HTN. Examination: Demonstrable impairment in strength, balance, and range of motion with underlying impairments and functional limitations as documented above Presentation: Evolving Decision Makin low complexity Goals: Goals X 3 days 1. Independent gait on level surface with use of no for at least 300 feet without report of pain nor dyspnea 2. Independent with home exercise program 3. Normal static and dynamic standing balance/tolerance Plan of Care/Treatment Plan: 1-2x/day, 7 days/week x 1 week. Plan of care has been reviewed with the IMPORT MANAGER providing the service under Physical Therapy direction. Initiate Physical Therapy intervention for strengthening, bed mobility, transfers, gait, stairs, balance training, use of assistive device. DISCHARGE RECOMMENDATIONS: No skilled services vs. HH PT based on discharge mobility level TREATMENT CODE/TIME: 57539 x 16 minutes beginning at 11:00 AM. Thank you very much for this referral. Marizol Morrison PT, DPT, CLT [facility]
[2022-12-28 11:21] LABS: Campylobacter PCR Negative (Negative); Salmonella PCR Negative (Negative); Shiga Toxin PCR Negative (Negative); Shigella/Enteroinvasive Ecoli Negative (Negative)
[2022-12-28] MEDS: Potassium Chloride 20 MEQ TABCR 40 MEQ PO (11:21)
--- NOTE | 2022-12-28 16:10 | W.PM.PROGNOT ---
Date of Service Date of service: 12/28/22 Time of Service: 16:11 Assessment and Plan Assessment and plan (1) Weakness: Status: Acute Assessment and plan: No vomiting today, continues to have diarrhea. Dehydrated and weak; IVF, PT eval, imodium Recheck labs in am (2) Diarrhea: Status: Acute Assessment and plan: Imodium prn (3) Hypokalemia: Status: Acute Assessment and plan: Potassium 3.3 repleted - check electroytes tomorrow (4) Essential hypertension: Status: Chronic Assessment and plan: Chronic, stable, continue home meds Hold lisinopril (5) Moderate nausea and vomiting: Status: Acute Assessment and plan: Vomiting has resolved; continues to have nausea, zofran prn, liquids til improved adv to full - did ok this khai with chicken noodle soup (6) Hyperlipidemia: Status: Chronic Assessment and plan: Chronic - continue Atorvastatin - home med Qualifiers: Hyperlipidemia type: mixed hyperlipidemia Qualified Code(s): E78.2 - Mixed hyperlipidemia (7) Acute dehydration: Status: Acute Assessment and plan: BUN 28, creat 0.8 LR IV 75 ml/h x 1 litre (8) DVT prophylaxis: Status: Acute Assessment and plan: Enoxaparin (9) Discharge planning issues: Status: Acute Assessment and plan: Home when stable, no services; lives with director of critical care Discussed with Dr Atkins Subjective Subjective Patient reports: no new complaints, feels better, tolerating liquids well, diarrhea, nausea and afebrile; denies vomiting Interval history since last seen: Continues to have some diarrhea, attempting to eat soup this afternoon, states shes is feeling week, but did get out with PT Exam Narrative Exam Narrative: 1.Const: Well-nourished, Well-developed, appearing stated age 2.Eyes: PERRL, no conjunctival injection, and symmetrical lids. 3.ENT: Atraumatic external nose and ears. Dry MM. Neck: Symmetric, trachea midline, No thyromegaly. Patient demonstrates good movement of cervical neck. 4.CVS: +S1/S2, No murmurs or gallops. Peripheral pulses 2+ and equal in all extremities. Brisk capillary refill in all extremities. 5.RESP: Unlabored respiratory effort. Clear to auscultation bilaterally. No wheezes rales or rhonchi 6.GI: Soft, Nondistended, No hepatosplenomegaly. Mild epigastric tenderness. Bowel sounds present. No distention. No guarding or rebound. 7.MSK: Normocephalic/Atraumatic, Extremities w/o deformity or ttp No cyanosis or clubbing, Normal movement of all extremities 8.Skin: Warm, Dry. No rashes or lesions. 9.Neuro: stress test technician II-XII grossly intact. Sensation grossly intact, no focal neurologic deficits. 10.Psych: (AAO) x3. Appropriate mood and affect Objective Last Vital Signs Temp 37.1 C 12/28/22 15:28 Pulse 69 12/28/22 15:28 Resp 17 12/28/22 15:28 BP 100/67 12/28/22 15:28 Pulse Ox 98 12/28/22 15:28 Laboratory Results - last 24 hr 12/27/22 12/28/22 12/28/22 13:23 05:23 05:23 WBC RBC Hgb Hct MCV MCH MCHC RDW Plt Count MPV Immature Gran % Neutrophils % Lymphocytes % Monocytes % Eosinophils % Basophils % Nucleated RBC % Absolute Neutrophils Absolute Lymphocytes Absolute Monocytes Absolute Eosinophils Absolute Basophils Sodium 140 Potassium 3.3 L Chloride 106 Carbon Dioxide 27.0 Anion Gap 7.0 BUN 28 H Creatinine 0.8 Est GFR (CKD-EPI 2020) 74.44 Glucose 91 Calcium 8.1 L Magnesium 1.8 Cryptosporidium/Giardia SEE BELOW 12/28/22 05:23 WBC 3.79 L RBC 4.16 Hgb 11.8 Hct 36.2 MCV 87 MCH 28.4 MCHC 32.6 RDW 14.7 H Plt Count 143 MPV 10.5 Immature Gran % 0.5 Neutrophils % 59.1 Lymphocytes % 22.2 Monocytes % 17.4 Eosinophils % 0.3 Basophils % 0.5 Nucleated RBC % 0.0 Absolute Neutrophils 2.24 Absolute Lymphocytes 0.84 L Absolute Monocytes 0.66 Absolute Eosinophils 0.01 Absolute Basophils 0.02 Sodium Potassium Chloride Carbon Dioxide Anion Gap BUN Creatinine Est GFR (CKD-EPI 2020) Glucose Calcium Magnesium Cryptosporidium/Giardia Time Spent with Patient Time Spent with Patient: 25-34 minutes Time was spent: preparing to see the patient(eg.review tests), ordering medications,tests, procedures, referring, communicating with other health ocular care aide, indepentently interpreting results, counseling the patient and care coordination
[2022-12-28] MEDS: Enoxaparin 40 MG/0.4 ML SYR SC (20:28)
[2022-12-28] MEDS: Atorvastatin 20 MG TAB PO (20:28)
[2022-12-29 02:43] VITALS: BP 111/72; PULSE 63; RESP 20; TEMP 36.7; O2SAT 95
[2022-12-29 07:15] LABS: Abs Immature Grans 0.01 10^3/uL (0.0-0.06); Absolute Basophil Count 0.02 10^3/uL (0.0-0.2); Absolute Eosinophil Count 0.04 10^3/uL (0.0-0.7); Absolute Lymphocyte Count 1.13 10^3/uL (1.2-3.4); Absolute Monocyte Count 0.45 10^3/uL (0.1-0.8); Absolute Neutrophil Count 1.17 10^3/uL (1.2-6.7); Basophils % 0.7; Eosinophils % 1.4; HCT 35.6 % (36.0-46.0); HGB 11.8 g/dL (11.2-15.7); Immature Grans % 0.4; Lymphocytes % 40.1; MCH 28.6 pg (27.0-33.0); MCHC 33.1 % (32.0-36.0); MCV 86 fL (80-95); MPV 10.8 fL (8.0-11.0); Neutrophils % 41.4; Platelet Count 149 10^3/uL (130-400); RBC 4.13 10^6/uL (3.93-5.22); RDW 14.2 % (11.7-14.6); RDW-SD 45.1 fL; WBC 2.82 10^3/uL (4.4-10.8)
[2022-12-29 07:24] VITALS: BP 110/68; PULSE 60; RESP 12; TEMP 37; O2SAT 95
[2022-12-29 07:28] LABS: Anion Gap 6.7 mmol/L (3-11); BUN 21 mg/dL (7-18); CO2 28.3 mmol/L (21.0-32.0); CREATININE 0.7 mg/dL (0.55-1.02); Calcium 8.2 mg/dL (8.5-10.1); Chloride 104 mmol/L (98-107); Estimated GFR 87.37 (mL/min/1.73m2); Glucose 99 mg/dL (74-106); Magnesium 1.8 mg/dL (1.8-2.4); Sodium 139 mmol/L (136-145)
[2022-12-29] MEDS: Normal Saline Flush 10 ML SYR IVP ×2 (08:19→13:48)
[2022-12-29] MEDS: hydroCHLOROthiazide 12.5 MG TAB PO (08:19)
[2022-12-29] MEDS: Omeprazole 20 MG CAPCR PO (08:20)
[2022-12-29] MEDS: Atenolol 25 MG TAB PO (08:20)
[2022-12-29] MEDS: Lisinopril 10 MG TAB PO (08:20)
[2022-12-29] MEDS: Aspirin E.C. 81 MG TABEC PO (08:21)
--- NOTE | 2022-12-29 10:24 | CHAPLAIN ---
Maite was up in the chair when I visited. She said she's tired from being dehydrated and having diarrhea and feels like it takes her longer to bounce back the older she gets. I explained my role and offered support.
[2022-12-29 11:11] VITALS: BP 120/83; PULSE 66; RESP 17; TEMP 36.7; O2SAT 97
--- NOTE | 2022-12-29 12:12 | W.PM.DS.N ---
Date of service: 12/29/22 Time of Service: 10:00 DS: Diagnosis Discharge Diagnosis (1) Weakness: Status: Acute (2) Diarrhea: Status: Acute (3) Hypokalemia: Status: Acute (4) Essential hypertension: Status: Chronic (5) Moderate nausea and vomiting: Status: Acute (6) Hyperlipidemia: Status: Chronic (7) Acute dehydration: Status: Acute (8) DVT prophylaxis: Status: Deleted (9) Discharge planning issues: Status: Deleted Discharge Plan Disposition Patient Disposition: Home Condition: Improving Discharge Details Reason For Visit: Dehydration, Colitis Admit Date/Time: 12/27/22 14:26 Admit Provider: Mikey Ware Attending Provider: Mikey Ware Primary Care Provider: Gume Byers Hospital Course Hospital Course: This is an 82-year-old female with a past medical history of nonobstructive coronary artery disease, high cholesterol, hypertension, renal cyst, who was seen at the [facility] ED on 12/26/2022, for abdominal pain and nausea at that time.? She was rehydrated with normal saline, had a CT scan which showed evidence of mild enteritis.? labs with Lipase elevated, and her symptoms appeared consistent with a viral etiology of enteritis and mild pancreatitis.?She was discharged home after a P.O. trial. She later developed mild fever, and although tolerating p.o. well and has been eating appropriately, felt too weak so returned here.? She had no more vomiting but reports of epigastric achiness.? She had difficulty walking around secondary to her worsening weakness. Of note the CT scan also showed thickening of the wall of the distal stomach.? This may be due to underdistention.? Infectious/inflammatory process or neoplasm cannot be excluded.? Further evaluation with upper GI or upper endoscopy should be considered and will be deferred to outpatient team. symptoms slowly improved with IV hydration and imodium. she remained hemodynamically stable, diet advanced and tolerating well. reambulated safely and ready for discharge to home with no services. discussed with DR lenz. Home Meds and New Rx's Prescriptions: Continued cholecalciferol (vitamin D3) 25 mcg (1,000 unit) tablet 2,000 unit PO DAILY loratadine 10 mg tablet 10 mg PO DAILY protein shake See Rx Instructions .ROUTE .COMPLEX Rx Instructions: Drinks 1 Protein Shake Daily; aspirin [Adult Aspirin Regimen] 81 mg tablet,delayed release (DR/EC) 81 mg PO DAILY Qty: 1 0RF atorvastatin 20 mg tablet 20 mg PO QPM Qty: 90 3RF calcium carbonate-vitamin D3 [Caltrate with Vitamin D3] 1 EACH tablet 1 ea PO DAILY Emergen-C 1,000 MG powder effervescent in packet 1,000 mg PO DAILY [id number] [Osteo Bi-Flex (5-Loxin)] 1 EACH tablet 1 tab PO DAILY atenolol 25 mg tablet 25 mg PO DAILY Qty: 90 3RF omeprazole 20 mg capsule,delayed release(DR/EC) 20 mg PO DAILY Qty: 90 4RF lisinopril 10 mg tablet 10 mg PO DAILY Qty: 90 0RF hydrochlorothiazide 12.5 mg capsule 12.5 mg PO DAILY Qty: 90 0RF acetaminophen [Tylenol Extra Strength] 500 mg Tablet 1,000 mg PO Q4H PRN ondansetron 4 mg tablet,disintegrating 4 mg PO BID 5 Days Qty: 10 0RF ondansetron 4 mg tablet,disintegrating 4 mg PO BID 5 Days Qty: 10 0RF Discharge Instructions Instructions: Gastroenteritis (DC) Additional Instructions: advance diet slowly, encouraging fluids to stay well hydrated. drink at least 6-8 glasses daily. take medication as prescribed. Stand Alone Forms: Nursing Discharge Form Referrals: Gume Byers NP [Primary Care Provider] - 01/05/23 9:40 am Activity:: Activity as Tolerated Equipment/Supplies:: No Equipment Needed Diet:: As Tolerated Discharge Orders Discharge Orders: Discharge Order (Routine); Ordered 12/29/22 Ordered By: Sona Wiley Discharge Data Discharge Date/Time-TO BE ENTERED AT DEPARTURE: 12/29/22 15:00 DS: Summary Time Spent with Patient providing and/or coordinating discharge services: Less than 30 minutes Status at Discharge Functional status at discharge: independent ambulation Overall status at discharge: patient is progressing back to baseline Mental Status: mental status grossly normal Speech and Movement: speech and movement normal Mood: congruent mood Affect: normal affect Exam Const General: cooperative and comfortable Nutritional Appearance: overweight Orientation: alert, awake and oriented x3 HENMT Head: normal to inspection, normocephalic and atraumatic Mouth: oral mucosae normal Chest Chest: normal inspection of the chest Resp Effort & Inspection: normal respiratory effort Cardio Rate: regular rate Rhythm: regular rhythm GI Inspection: normal to inspection Palpation: soft Skin General skin exam: no rashes or lesions noted Neuro General: patient alert, patient awake and patient oriented x3 Extrem General: full ROM Psych Mental Status: mental status grossly normal Speech and Movement: speech and movement normal Mood: congruent mood Affect: normal affect DS: Data Vitals/I&O Vitals and I&O: Vital Signs Temperature 36.7 C 12/29/22 11:11 Temperature Source Tympanic 12/29/22 11:11 Pulse 66 12/29/22 11:11 Pulse Rhythm Regular 12/29/22 09:33 Pulse 78 12/27/22 14:30 Respiratory Rate 17 12/29/22 11:11 Respiratory Effort Normal 12/29/22 09:33 Respiratory Depth Normal 12/29/22 09:33 Respiratory Pattern Normal 12/29/22 09:33 Blood Pressure 120/83 12/29/22 11:11 Blood Pressure Mean 64 12/27/22 12:31 Blood Pressure Position Sitting 12/27/22 10:11 Pulse Oximetry 97 12/29/22 11:11 Oxygen Delivery Method Room Air 12/29/22 11:11 Oxygen Flow Rate 0 12/29/22 11:11 Pain Level 0 12/29/22 11:11 Intake & Output 12/28/22 12/29/22 12/29/22 23:59 11:59 23:59 Intake Total 1200 / 1200 120 / 120 Output Total 650 / 1050 600 / 600 Balance 550 / 150 -480 / -480 Weight 83.5 kg 83.1 kg Intake: Oral 1200 / 1200 120 / 120 Output: Urine 650 / 1050 600 / 600 Other: Urine Color Yellow Yellow Urine Appearance Clear Clear Urine Odor Normal None Comment pT voided 650ml into the toilet. pT was also incontinent of urine in breif. Emesis Description None Voiding Methods Toilet Toilet Incontinent Data Completed and Pending Labs on day of discharge: Labs from last 24 hours 12/29/22 12/29/22 12/27/22 06:38 06:38 13:23 WBC 2.82 L RBC 4.13 Hgb 11.8 Hct 35.6 L MCV 86 MCH 28.6 MCHC 33.1 RDW 14.2 Plt Count 149 MPV 10.8 Immature Gran % 0.4 Neutrophils % 41.4 Lymphocytes % 40.1 Monocytes % 16.0 Eosinophils % 1.4 Basophils % 0.7 Nucleated RBC % 0.0 Absolute Neutrophils 1.17 L Absolute Lymphocytes 1.13 L Absolute Monocytes 0.45 Absolute Eosinophils 0.04 Absolute Basophils 0.02 Sodium 139 Potassium 4.0 Chloride 104 Carbon Dioxide 28.3 Anion Gap 6.7 BUN 21 H Creatinine 0.7 Est GFR (CKD-EPI 2020) 87.37 Glucose 99 Calcium 8.2 L Magnesium 1.8 Stool Description Not Applicable Stool Campylobacter PCR Negative Stool Salmonella PCR Negative Stool Shigella PCR Negative Stool Ova & Parasites SEE BELOW Shiga Toxin (PCR) Negative Preliminary micro results at discharge 12/27/22 11:15 Blood Culture - Preliminary Blood NO GROWTH 24 HOURS 12/27/22 10:40 Blood Culture - Preliminary Blood NO GROWTH 24 HOURS PFSH All Active Problems (Updated 12/30/22 @ 00:05 by TAYLOR MENDOZA) Hypokalemia (Acute) Gordon's esophagus (Acute) EGD 02/05/13- and in 2016 NEG H. PYLORI egd 12/31, 2016,[address] [facility] due for EGD in 2022 Essential hypertension (Chronic 10/02/13) Hyperlipidemia (Chronic) Non-ST elevation [place] (NSTEMI) (Acute) 02/2022-treated at [facility], cardiac catheterization showed nonobstructive cardiac disease, preserved heart function, treated with medical therapy Lung granuloma (Acute) 2021-incidental finding with chest CT-5 mm calcified granuloma Renal cyst (Acute) Multiple bilateral peripelvic renal cysts-. Ultrasound 2015 Lichen sclerosus (Acute) Moderate nausea and vomiting (Acute) Acute pancreatitis (Acute) Diarrhea (Acute) Weakness (Acute) Acute dehydration (Acute) Medical History Actinic keratosis Bilateral low back pain without sciatica (05/13/16) Closed fracture of proximal end of right humerus (06/11/19) Family history of colon cancer (02/05/10) father Hiatal hernia History of postoperative nausea and vomiting Left medial knee pain Lichen planus on rt [place] Osteopenia Rosacea Spondylosis of lumbar region without myelopathy or radiculopathy Traumatic closed displaced fracture of proximal end of left humerus with routine healing (01/03/18) 01/03/18 Varicose veins of lower extremity Vitiligo Yeast vaginitis Surgical History Appendectomy no date given BIOPSY (02/05/14) DISTAL ESOPHAGUS BX Cholecystectomy (~10/2001) Colonoscopy - MAC (~01/2014) EGD - IV Sedation (02/15/17) Endoscopy 02/15/17 [facility] Finger Surgery CYST REMOVAL;DR. YEPEZ; 03/17/17 History of Mike fundoplication Ligation of fallopian tube Medial Branch Block 10/12/16; PAIN CLINIC 10/12/16 S/P colonoscopic polypectomy (~05/2020) Dr. Nemesio Argueta ? F/U Family History Mother , age 90 Diabetes Essential hypertension Heart disease Hyperlipidemia Breast cancer Father , age 78 Diabetes Essential hypertension Hyperlipidemia Lung cancer Brother Prostate cancer Hyperlipidemia Essential hypertension Asthma Sister , 59 Colon cancer Sister Diabetes Hyperlipidemia Sister No problems noted. Sister Asthma Sister Depression Brother Heart disease Brother Essential hypertension Hyperlipidemia Bladder cancer Son No problems noted. Daughter , 42 Diabetes Daughter No problems noted. Daughter No problems noted. Maternal Grandfather No problems noted. Paternal Grandfather No problems noted. Maternal Grandmother No problems noted. Paternal Grandmother No problems noted. Social History Smoking/Tobacco Use Status: Never Smoking risk assessment performed?: Yes Alcohol Intake: current Alcohol Intake frequency: holidays/special occasions only Drug use: Never Substance use type: does not use Counseling given: No Counseling provided: none Caregiver/Support person: No Household members: none Housing: apartment Do you need help understanding health information?: Never Pets and animals: No Sexually active: No Do you think of yourself as: straight/heterosexual Current gender identity: female What is your relationship status?: How often do you talk on the phone with friends or family?: three or more times per week How often do you get together with friends or relatives?: three or more times per week How often do you attend protestant or hoahaoism services?: decline to answer Do you belong to any clubs or organized social groups?: no Panel score (0-1 are the most socially isolated patients): 1 What type of physical activity do you participate in: decline to answer Duration: 15-30 minutes/day Frequency: 5-6 times per week Chloe/Scientologist: Congregational Special chloe needs: No Seatbelt use: always Drive intox or ride w/intox pile driver operator: No Do you feel safe at home: Yes Do you feel safe in your relationship?: Yes Female Reproductive History Menstrual Age of Menarche: 16 History History 4 Para 4 Hx # Term Pregnancies 4 Multiple births Hx # Pregnancies Ectopic pregnancies AB induced Hx Number of Living Children 4 AB spontaneous Past Pregnancies Del. Date GA/Weeks # Preg Succ Route Wgt Sex Labor Lgth Anesthesia Location Prov Complic 04/16/1961 vaginal Female 12/03/1963 vaginal Male 12/26/1968 vaginal Female 07/19/71 vaginal Female Time Spent with Patient Time Spent with Patient: <45 minutes Time was spent: preparing to see the patient(eg.review tests), obtaining and/or reviewing separately otained hiistory, ordering medications,tests, procedures, indepentently interpreting results and counseling the patient
--- NOTE | 2022-12-29 12:41 | CMDISCH_ITS ---
- If Service Date Differs Date of service: 12/29/22 Time of Service: 12:41 LACE Index Scoring Tool - Questions: Length of Stay (in days): 2 Acuity (Admit via E.D.?): Yes E.D. Visits: 3 - Answers: Total Score: 8 Risk of Readmission: Low Risk Care Management Discharge Reason for Hospitalization: Dehydration, Colitis Discharge Plan: Maite is discharged home via private vehicle with family. She will follow up with her PCP and discharge plan of care as prescribed. No [facility] services are ordered. Patient/Family Education Needs: Review discharge instructions, limitations and plan to follow up with PCP. Discuss ask me three.
[2022-12-29] MEDS: Ondansetron 4 MG/2 ML VIAL IVP (13:48)
[2022-12-29] MEDS: Loperamide 2 MG CAP PO (13:48)
--- NOTE | 2022-12-30 08:50 | INDS_ITS ---
Date of service: 12/28/22 PT Notes Visit Reasons: Dehydration, Colitis Inpatient Physical Therapy Discharge Summary Date: 12/29/2022 Dates of Service: 12/28/2022 only Referring Doctor:? Elizabeth Fair,? NESHA PT Orders: PT CONSULT: Limited ability Precautions: Fall. Standard. Activity as tolerated. Patient Profile/Admitting Diagnosis:? Patient is a 82-year-old female who presented to the ED on 12/28/2022 due to abdominal pain and nausea.? Patient is diagnosed with acute dehydration,? diarrhea,? weakness,? nausea, hyperlipidemia, and essential HTN.? PMHX: All Active Problems?(Updated 12/27/22 @ 19:01 by Elizabeth Fair NP) Discharge planning issues (Acute) DVT prophylaxis (Acute) Gordon's esophagus (Acute) EGD 02/05/13- and in 2016 NEG H. PYLORI egd 12/31, 2016,[address] [facility]22 Essential hypertension (Chronic 10/02/13) Hyperlipidemia (Chronic) Non-ST elevation [place] (NSTEMI) (Acute) 02/2022-[place] [facility] [place] cardiac catheterization showed nonobstructive cardiac disease, preserved heart function, treated with medical therapy Lung granuloma (Acute) 2021-incidental finding with chest CT-5 mm calcified granuloma Renal cyst (Acute) Multiple bilateral peripelvic renal cysts-.? Ultrasound 2016 Lichen sclerosus (Acute) Moderate nausea and vomiting (Acute) Acute pancreatitis (Acute) Diarrhea (Acute) Weakness (Acute) Acute dehydration (Acute) Medical History? Actinic keratosis Bilateral low back pain without sciatica (05/13/16) Closed fracture of proximal end of right humerus (06/11/19) Family history of colon cancer (02/05/10) father Hiatal hernia History of postoperative nausea and vomiting Left medial knee pain Lichen planus on rt [place] Osteopenia Rosacea Spondylosis of lumbar region without myelopathy or radiculopathy Traumatic closed displaced fracture of proximal end of left humerus with routine healing (01/03/18) 01/03/18 Varicose veins of lower extremity Vitiligo Yeast vaginitis Surgical History? Appendectomy no date given BIOPSY (02/05/14) DISTAL ESOPHAGUS BX Cholecystectomy (~10/2001) Colonoscopy - MAC (~01/2014) EGD - IV Sedation (02/15/17) Endoscopy 02/15/17 [facility] Finger Surgery CYST REMOVAL;DR. YEPEZ; 03/17/17 History of Mike fundoplication Ligation of fallopian tube Medial Branch Block 10/12/16; [facility] 10/12/16 S/P colonoscopic polypectomy (~05/2020) Dr. Nemesio [place] ? F/U Social History/Home Situation: Patient lives alone in a one-story apartment with no steps to enter.? She is independent with all aspects of ADLs without the need for an assistive ambulatory device nor adaptive equipment.? She still drives. Equipment Owned/DME: None Subjective: Denies abdominal pain.? Feels better. Agreeable to trying out unassisted ambulation for this session. Objective: General Observation: Seated on bedside chair. Mental Status: Alert and oriented x 4 Pain: Denies ROM: Right Upper Extremity: ? Shoulder Flexion WFL. Shoulder abduction WFL. Elbow flexion WFL. Wrist flexion WFL. Functional opening and closing of hand WFL. Left Upper Extremity:? Shoulder Flexion WFL. Shoulder abduction WFL. Elbow flexion WFL. Wrist flexion WFL. Functional opening and closing of hand WFL. Right Lower Extremity: Hip flexion WFL. Hip abduction WFL. Knee flexion WFL. Ankle dorsiflexion WFL. Ankle plantarflexion WFL. Left Lower Extremity: Hip flexion WFL. Hip abduction WFL. Knee flexion WFL. Ankle dorsiflexion WFL. Ankle plantarflexion WFL. Strength: Right Upper Extremity: Shoulder flexors 4-/5. Shoulder abductors 4-/5. Elbow flexors 5/5. Elbow extensors 5/5. [employer] strong. Left Upper Extremity: Shoulder flexors 5/5. Shoulder abductors 5/5. Elbow flexors 5/5. Elbow extensors 5/5. Ele[employer] strong. Right Lower Extremity: Hip flexors 5/5. Hip abductors 5/5. Knee flexors 5/5. Knee extensors 5/5. Ankle dorsiflexors 5/5. Ankle plantarflexors 5/5. Left Lower Extremity:Hip flexors 5/5. Hip abductors 5/5. Knee flexors 5/5. Knee extensors 5/5. Ankle dorsiflexors 5/5. Ankle plantarflexors 5/5. Bed Mobility/Transfers: Rolling to left independent Supine to sit Independent Sit to supine Independent Sit to stand Independent Stand to sit Independent Bed to chair Independent Chair to bed Independent Gait: Patient ambulated with FWW with supervision and wheelchair follow. Reports being weak as she has not had anything to eat since admission being on a fluid diet.? No SOB.? No LOB. Balance: Static Sitting: Normal Dynamic Sitting: Normal Static Standing: Normal Dynamic Standing: Good Special Tests: Mobility Limitations Standardized Measure [facility] 6 clicks Basic Mobility Inpatient Short Form: Raw Score: 24 ? CMS Score: 0% deficit THERA EX: Needed rest in between each activity due to fatigue Bilateral heel raises x 10 without LOB Partial knee bends x 10 without LOB Side steps to R x 10 without LOB Sidesteps to L x 10 without LOB Assessment: Patient is a 82-year-old female who presented to the ED on 12/28/2022 due to abdominal pain and nausea.? Patient is diagnosed with acute dehydration,? diarrhea,? weakness,? nausea, hyperlipidemia, and essential HTN.? Goals: Goals X 3 days 1. Independent gait on level surface with use of no for at least 300 feet without report of pain nor dyspnea MET 2. Independent with home exercise program MET 3. Normal static and dynamic standing balance/tolerance MET DISCHARGE RECOMMENDATIONS: No skilled services vs. HH PT based on discharge mobility level TREATMENT CODE/TIME: 05601 x 16 minutes beginning at 14:03 PM. Thank you very much for this referral. Marizol Morrison PT, DPT, CLT [facility]
== END 2022-12-29 15:00 | disposition home or self-care (01) ==
LOC: ER 15:18 → MS 15:43
PROVIDERS: Nurse Practitioner Family; Admitting Provider Internal Medicine; Emergency Provider Student in an Organized Health Care Education/Training Program; PCP Nurse Practitioner Family; Visit Provider Internal Medicine
DX: A08.4 Viral intestinal infection, unspecified (principal); K85.90 Acute pancreatitis without necrosis or infection, unspecified; R53.1 Weakness; R19.7 Diarrhea, unspecified; I10 Essential (primary) hypertension; R11.2 Nausea with vomiting, unspecified; E78.2 Mixed hyperlipidemia; E86.0 Dehydration; I25.10 Atherosclerotic heart disease of native coronary artery without angina pectoris; I25.2 Old myocardial infarction; M54.50 Low back pain, unspecified; K44.9 Diaphragmatic hernia without obstruction or gangrene; E87.6 Hypokalemia
CPT/HCPCS: 36415; 80048; 80053; 83690; 87040; 87329; 87493; 87505; 87637; 96361; 96372; 96374; 96376; 97112; 97161; 99285; J1650; 71045; 81003; 81015; 83605; 83735; 84484; 85025; 85610; 85730; 87177; 99222; 99232; 99238; G0378; J2405

== ENCOUNTER → 2023-05-11 15:22 | Outpatient (CLI) | payer MEDICARE, SELFPAY ==
--- NOTE | 2023-05-11 11:00 | DI.RAD_ITS ---
Exam(s) XR FOOT LT COMPLETE EXAM: XR FOOT LT COMPLETE CLINICAL HISTORY: Comparison views,lt foot pain,m25.572. TECHNIQUE: 2D digital imaging was performed of the left foot. Three images were obtained. AP, obli que and lateral views were obtained. COMPARISON: No exams were available for comparison FINDINGS: BONES: No acute fracture is present. No bony destructive lesion is seen. There is a small plantar andreina caneal spur. There is an enthesophyte at the posterior calcaneus. JOINTS: No dislocation present. There are degenerative changes seen in the foot characterized by join t space narrowing and spurs. The findings are seen at the 1st metatarsophalangeal joint and the inte rphalangeal joints of the toes. SOFT TISSUE: Normal. IMPRESSION: Mild degenerative changes of the foot. DATA REPOSITORY: RADIATION DOSE DELIVERED:
--- NOTE | 2023-05-11 11:00 | DI.RAD_ITS ---
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 TECHNIQUE: 2D digital imaging was performed of the right foot. Three images were obtained. AP, obl ique and lateral views were obtained. COMPARISON: No exams were available for comparison FINDINGS: BONES: No acute fracture is present. No bony destructive lesion is seen. There is a plantar calcaneal spur. There is an enthesophyte at the posterior calcaneus. JOINTS: No dislocation present. There are mild degenerative changes seen in the foot. SOFT TISSUE: Atherosclerosis is present. IMPRESSION: No acute abnormality. Mild degenerative changes of the foot. DATA REPOSITORY: RADIATION DOSE DELIVERED:
== END ==
PROVIDERS: PCP Nurse Practitioner Family; Visit Provider Podiatrist
DX: M19.072 Primary osteoarthritis, left ankle and foot (principal); M76.821 Posterior tibial tendinitis, right leg; M77.32 Calcaneal spur, left foot
CPT/HCPCS: 73630

== ENCOUNTER → 2023-06-24 00:22 | Outpatient (CLI) | payer MEDICARE, SELFPAY ==
--- NOTE | 2023-06-24 08:00 | DI.MRI_ITS ---
Exam(s) MR LOWER JOINT RT WO EXAM: MR LOWER JOINT RT WO CLINICAL HISTORY: POSTERIOR TIBIAL TENDON DYSFUNCTION,RT LOW EXT,M76.821 TECHNIQUE: Multiplanar multisequence MRI was performed without intravenous contrast. COMPARISON: CR XR FOOT RT COMPLETE from 05/11/2023 FINDINGS: BONES/JOINTS: No fracture . Degenerative cyst in the lateral malleolus. Edema in the medial aspect of the talus. No suspicious bone lesions identified. The talar dome is smooth. The ankle mortise is maintained. No joint effusion is present. Plantar calcaneal spurs. LIGAMENTS: The tibiofibular and calcaneofibular ligaments are intact. The talofibular ligaments are i ntact. The deltoid ligament is intact. The syndesmosis is unremarkable. Sinus tarsi is normal. MUSCULOTENDINOUS STRUCTURES: Achilles tendon: Unremarkable. Plantar fascia: Unremarkable. Anterior Extensor tendons: Unremarkable. Posterior Tibialis: Appears normal along most of its extent however is not well seen distally and is surrounded by edema. This could indicate severe tendinosis or severe partial tear. Flexor Digitorum longus: Unremarkable. Flexor Hallucis longus: Unremarkable. Peroneus longus: Unremarkable. Peroneus brevis:Unremarkable. SOFT TISSUES: Significant subcutaneous edema in the lower leg. OTHER FINDINGS: None. IMPRESSION: Abnormal distal posterior tibialis tendon representing either severe partial tear severe tendinosis. Adjacent soft tissue edema as well as edema in the medial talus. DATA REPOSITORY:
== END ==
PROVIDERS: PCP Nurse Practitioner Family; Visit Provider Podiatrist
DX: M76.821 Posterior tibial tendinitis, right leg (principal)
CPT/HCPCS: 73721

== ENCOUNTER → 2023-11-07 12:54 | Outpatient (BNVA) | payer MEDICARE, SELFPAY | PROVIDERS: PCP Nurse Practitioner Family; Referring Provider Nurse Practitioner Family; Visit Provider Internal Medicine Cardiovascular Disease | DX: I25.2 Old myocardial infarction (principal); I10 Essential (primary) hypertension | CPT/HCPCS: 99213 ==

== ENCOUNTER → 2023-12-07 13:34 | Outpatient (BNVA) | payer MEDICARE, SELFPAY | PROVIDERS: PCP Nurse Practitioner Family; Referring Provider Nurse Practitioner Family; Visit Provider Podiatrist | DX: M19.071 Primary osteoarthritis, right ankle and foot (principal); M21.41 Flat foot [pes planus] (acquired), right foot; M76.821 Posterior tibial tendinitis, right leg; M72.2 Plantar fascial fibromatosis | CPT/HCPCS: 20550; J0702 ==

== ENCOUNTER 2023-12-09 01:44 | Outpatient (CLI) | payer MEDICARE, SELFPAY ==
[2023-12-09 13:01] LABS: ALT 23 U/L (14-59); AST 18 U/L (15-37); Albumin 3.8 g/dL (3.4-5.0); Alkaline Phosphatase 69 U/L (46-116); Anion Gap 8.4 mmol/L (3-11); BUN 26 mg/dL (7-18); Bilirubin, Total 0.6 mg/dL (0.2-1.0); CO2 29.6 mmol/L (21.0-32.0); Calcium 9.3 mg/dL (8.5-10.1); Calculated LDL 52 mg/dL (<100); Chloride 105 mmol/L (98-107); Cholesterol 146 mg/dL (<200); Glucose 91 mg/dL (74-106); HDL Cholesterol 85 mg/dL (40-60); Potassium 4.1 mmol/L (3.5-5.1); Sodium 143 mmol/L (136-145); Total Protein 7.2 g/dL (6.4-8.2); Triglyceride 48 mg/dL (<150)
== END 2023-12-09 01:45 | disposition home or self-care (01) ==
LOC: LOS 01:45
PROVIDERS: PCP Nurse Practitioner Family; Visit Provider Nurse Practitioner Family
DX: E78.2 Mixed hyperlipidemia (principal)
CPT/HCPCS: 36415; 80053; 80061

== ENCOUNTER → 2024-01-05 03:37 | Outpatient (CLI) | payer MEDICARE, SELFPAY ==
--- NOTE | 2024-01-05 07:45 | DI.DEXA_ITS ---
Exam(s) XR DEXA BONE DENSITY W/WO NEGRITA EXAM: XR DEXA BONE DENSITY W/WO NEGRITA CLINICAL HISTORY: screening for osteoporosis in postmenopausal woman,z78.0 TECHNIQUE: COMPARISON: DX DEXA BONE DENSITY WITH NEGRITA from 10/06/2015 FINDINGS: Lateral Spine Image: Unremarkable. No compression deformities identified. Left hip: Total T-Score: -1.4. This compares to -1.4 on the prior examination. Total Z-Score: 0.8 T- and Z-scores: Findings are consistent with osteopenia. Lumbar Spine: Total T-Score: -1.7. This compares to -1.2 on the prior examination. Total Z-Score: 1.0 T- and Z-scores: Findings are consistent with osteopenia. IMPRESSION: There is no evidence of osteoporosis in the left hip or lumbar spine.
== END ==
PROVIDERS: PCP Nurse Practitioner Family; Visit Provider Nurse Practitioner Family
DX: Z78.0 Asymptomatic menopausal state (principal)
CPT/HCPCS: 77080

== ENCOUNTER → 2024-01-18 13:25 | Outpatient (BNVA) | payer MEDICARE, SELFPAY | PROVIDERS: PCP Nurse Practitioner Family; Referring Provider Nurse Practitioner Family; Visit Provider Podiatrist | DX: M19.071 Primary osteoarthritis, right ankle and foot (principal); M21.41 Flat foot [pes planus] (acquired), right foot; M76.821 Posterior tibial tendinitis, right leg; M72.2 Plantar fascial fibromatosis; M20.41 Other hammer toe(s) (acquired), right foot | CPT/HCPCS: 99213 ==

== ENCOUNTER → 2024-02-08 13:04 | Outpatient (BNVA) | payer MEDICARE, SELFPAY | PROVIDERS: PCP Nurse Practitioner Family; Referring Provider Nurse Practitioner Family; Visit Provider Podiatrist | DX: M19.071 Primary osteoarthritis, right ankle and foot (principal); M21.41 Flat foot [pes planus] (acquired), right foot; M76.821 Posterior tibial tendinitis, right leg; M72.2 Plantar fascial fibromatosis; M20.41 Other hammer toe(s) (acquired), right foot | CPT/HCPCS: 99213 ==

== ENCOUNTER → 2024-04-03 11:38 | Outpatient (BNVA) | payer MEDICARE, SELFPAY | PROVIDERS: PCP Nurse Practitioner Family; Referring Provider Nurse Practitioner Family; Visit Provider Student in an Organized Health Care Education/Training Program | DX: M65.332 Trigger finger, left middle finger (principal); M65.342 Trigger finger, left ring finger | CPT/HCPCS: 99214 ==

== ENCOUNTER 2024-09-07 13:45 | Outpatient (CLI) | payer MEDICARE, SELFPAY ==
--- NOTE | 2024-09-07 13:15 | DI.RAD_ITS ---
Exam(s) XR KNEE RT 4V AP,LAT,UNIQUE,PAT EXAM: XR KNEE RT 4V AP,LAT,UNIQUE,PAT CLINICAL HISTORY: eval pathology,rt knee pain,m25.561. TECHNIQUE: 2D digital imaging was performed of the right knee. Four views obtained. Merchant, AP, la teral and PA tunnel views were obtained. COMPARISON: CR RIGHT KNEE LIMITED 1 OR 2 VIEW from 04/10/2013 FINDINGS: BONES: No acute fracture is present. No bony destructive lesion is seen. JOINTS: The knee is normally aligned. No joint effusion is seen. SOFT TISSUE: Normal. IMPRESSION: No acute abnormality. DATA REPOSITORY: RADIATION DOSE DELIVERED:
== END 2024-09-07 14:05 ==
PROVIDERS: PCP Nurse Practitioner Family; Visit Provider Nurse Practitioner Family
DX: M25.561 Pain in right knee (principal)
CPT/HCPCS: 73564

== ENCOUNTER 2024-10-03 12:36 | Outpatient (CLI) | payer MEDICARE, SELFPAY ==
--- NOTE | 2024-10-03 11:45 | DI.RAD_ITS ---
Exam(s) XR CHEST 2V PA LATERAL EXAM: XR CHEST 2V PA LATERAL CLINICAL HISTORY: persistent since 09/12/24 R05.9 Cough TECHNIQUE: 2D digital imaging was performed. Two views. COMPARISON: CR XR PORTABLE CHEST AP from 12/27/2022 FINDINGS: HEART: Enlarged. Aorta: Ectatic. PULMONARY VASCULATURE: Normal. MEDIASTINUM: Unremarkable. LUNGS: Clear. PLEURAL SPACE: No pleural effusion or pneumothorax. BONE:Right shoulder prosthesis. Old left humeral fracture. SOFT TISSUES: Unremarkable. IMPRESSION: No acute abnormality. DATA REPOSITORY: RADIATION DOSE DELIVERED:
== END 2024-10-03 12:56 ==
LOC: DI 12:36
PROVIDERS: PCP Nurse Practitioner Family; Visit Provider Nurse Practitioner Family
DX: R05.9 Cough, unspecified (principal)
CPT/HCPCS: 71046

== ENCOUNTER 2024-10-15 02:01 | Outpatient (CLI) | payer MEDICARE, SELFPAY ==
--- NOTE | 2024-10-15 14:30 | DI.US_ITS ---
APPROVED REPORT EXAM: Comprehensive 2D, Doppler, and color-flow Echocardiogram Patient Location: Out-Patient Clinical Research Specialist: Yash Martinez RDCS (AE) Indications: Cardiomegaly Other Information Study Quality: Fair Conclusion Normal left ventricular wall thickness and chamber size. Ejection fraction is 65%. Wall motion is n ormal Normal right ventricular size and function Left atrium is moderately dilated. Right atrial size is normal Aortic valve is sclerotic without stenosis or regurgitation Structurally normal mitral valve with mild regurgitation Estimated right ventricular systolic pressure is 29 mmHg Wall motion Left Ventricle The left ventricle is normal size. The left ventricular systolic function is normal. The left ventric ular ejection fraction is within the normal range. There is normal left ventricular wall thickness. T here is normal LV segmental wall motion. There is no ventricular septal defect visualized. LVEF is 65 %. Right Ventricle The right ventricle is normal size. The right ventricular systolic function is normal. Atria Left atrium is moderately dilated. The right atrium size is normal. The interatrial septum is intact with no evidence for an atrial septal defect. Aortic Valve The aortic valve is sclerotic. There is no aortic valvular stenosis. No aortic regurgitation is prese nt. Mitral Valve The mitral valve is normal in structure. No evidence of mitral valve stenosis. Mild mitral regurgitat ion. Tricuspid Valve The tricuspid valve is normal in structure. There is no tricuspid valve stenosis. Mild tricuspid regu rgitation. The RVSP is 29 mmHg. Pulmonic Valve The pulmonary valve is normal in structure. There is no pulmonic valvular stenosis. There is no pulmo selin valvular regurgitation. Great Vessels The aortic root is normal in size. The ascending aorta is normal in size. Aortic arch is not well vis ualized. IVC is normal in size and collapses >50% with inspiration. Pericardium There is no pericardial effusion. 2D Dimensions IVSD d PLAX 0.84 cm F: 0.6-1.0 Ao Root d 2.90 cm F: 2.7 - 3.3 LVPW d PLAX 0.81 cm F: 0.6 - 1.0 LVID d PLAX 4.44 cm F: 3.8 - 5.2 LVDs 2.91 cm F: 2.2 - 3.5 LV EF Teichholz 63.6 % FS 34.33 % LV EDV (Teich) 89.5 mL LV ESV (Teich) 32.6 mL Stroke Vol Index (Teich) 32.14 Auto EF LV EDV A4C 82.5 mL LV EDV A2C 75.8 mL LV EDV BP 78.5 mL LV ESV A4C 32.6 mL LV ESV A2C 30.0 mL LV ESV BP 31.3 mL LVEF(%) A4C 60.4 % LVEF(%) A2C 60.4 % LVEF(%) BP 60.1 % LV SV A4C 49.9 ml LV SV A2C 45.8 ml LV SV BP 47.2 ml LV CO A4C 3.4 L/min LV CO A2C 3.0 L/min LV CO BP 3.2 L/min HR A4C 67.68 BPM HR A2C 66.18 BPM LV EDV Index (BP) LA Volume LA Length A4C 4.8 cm LA Length A2C 5.7 cm LA Area A4C s 18.36 cm2 LA Area A2C s 17.44 cm2 LA Vol A4C A-L 59.66 mL LA Vol A2C A-L 45.32 mL LA Vol Biplane A-L 56.7 mL LA Vol/BSA A4C A-L LA Vol/BSA A2C A-L LA Vol/BSA BP A-L 32.0 mL/m2 LA Vol A4C MOD 53.3 mL LA Vol A2C MOD 42.2 mL LA Vol BP MOD 50.8 mL RA Volume RA Area A4C 6.0 cm2 RA ESV A4C (A-L) 15.0mL RA Vol/BSA A4C A-L RA Length A4C 2.0 cm RA ESV A4C (MOD) 12.6mL LV Diastology MV E' medial 0.089 (>0.07 m/s) MV E Vmax 0.78 (0.4-1.3 m/s) MV E/E' MED 8.72 (<14) MV A Vmax 0.85 (0.4-1.3 m/s) MV E' lateral 0.087 (>0.1 m/s) E/A Ratio 0.9 MV E/E' LAT 8.89 (<14) MV E' Average 0.088 m/s MV E/E'(average) 8.80 Aortic Valve AoV Vmax 1.53 m/s LVOT Vmax 1.44 m/s AoV Peak Grad 9.3 mmHg LVOT Peak Grad 8.3 mmHg AoV Area (Vmax) 2.82 cm2 LVOT VTI 0.337 m AoV VTI 0.387 m LVOT Mean Grad 4.6 mmHg AoV Mean Vance. 1.07 m/s LVOT SV 100.72 mL AoV Mean Grad 5.2 mmHg LVOT Diam s 1.95 cm AoV Area (VTI) 2.60 cm2 AV Regurg Peak Gr. 9.31 mmHg Velocity Ratio 0.94 Mitral Valve MV DT 217 (160-240 msec) MV Vmax TIPS 0.90 m/s MV Mean Grad 1.5 (<2mmHg) MV VTI 0.248 m Pulmonary Valve PV Vmax 1.06 (0.5-1.5 m/s) RVOT Vmax 0.59 m/s PV Peak Grad 4.5 mmHg RVOT Peak Gr. 1.4 mmHg PV Mean Vance 0.77 m/s RVOT VTI 0.139 m PV Mean Grad 2.6 mmHg RVOT Mean Gr. 0.7 mmHg Tricuspid Valve RA Pressure 3.00 mmHg TR Vmax 2.56 m/s TR Peak Grad 26.1 mmHg RVSP (TR) 29.1 mmHg
== END 2024-10-15 02:21 ==
LOC: DI 02:01
PROVIDERS: PCP Nurse Practitioner Family; Visit Provider Internal Medicine Cardiovascular Disease
DX: I51.7 Cardiomegaly (principal)
CPT/HCPCS: 93306

== ENCOUNTER 2024-11-05 12:52 | Outpatient (CLI) | payer MEDICARE, SELFPAY ==
--- NOTE | 2024-11-05 12:45 | RT.EKG_ITS ---
APPROVED REPORT Exam: Resting ECG Reason for Exam: follow-up Patient Location: O HR:61 bpm ECG Measurements Heart Rate 61 AXIS GA 174 P 31 QRSd 99 QRS 5 QT 405 T -3 QTc 408 Conclusion Sinus rhythm...normal P axis, V-rate 50- 99 Abnormal R-wave progression, early transition...QRS area>0 in V2
== END 2024-11-05 12:53 | disposition home or self-care (01) ==
LOC: DI.CARD 12:56
PROVIDERS: PCP Nurse Practitioner Family; Referring Provider Nurse Practitioner Family; Visit Provider Registered Nurse
DX: I51.7 Cardiomegaly (principal); I21.4 Non-ST elevation (NSTEMI) myocardial infarction; I10 Essential (primary) hypertension
CPT/HCPCS: 93010

== ENCOUNTER → 2024-11-05 12:52 | Outpatient (BNVA) | payer MEDICARE, SELFPAY | PROVIDERS: PCP Nurse Practitioner Family; Referring Provider Nurse Practitioner Family; Visit Provider Registered Nurse | DX: R94.31 Abnormal electrocardiogram [ECG] [EKG] (principal); I51.7 Cardiomegaly | CPT/HCPCS: 93005; 99214 ==

== ENCOUNTER 2024-12-18 02:06 | Outpatient (CLI) | payer MEDICARE, SELFPAY ==
[2024-12-18 12:47] LABS: ALT 21 U/L (14-59); AST 19 U/L (15-37); Albumin 3.7 g/dL (3.4-5.0); Alkaline Phosphatase 66 U/L (46-116); Anion Gap 7.2 mmol/L (3-11); BUN 26 mg/dL (7-18); Bilirubin, Total 0.5 mg/dL (0.2-1.0); CO2 26.8 mmol/L (21.0-32.0); CREATININE 0.9 mg/dL (0.55-1.02); Calcium 9.3 mg/dL (8.5-10.1); Calculated LDL 54 mg/dL (<100); Chloride 107 mmol/L (98-107); Cholesterol 132 mg/dL (<200); Estimated GFR 63.83 (mL/min/1.73m2); Glucose 95 mg/dL (74-106); HDL Cholesterol 63 mg/dL (>or=50); Potassium 4.4 mmol/L (3.5-5.1); Sodium 141 mmol/L (136-145); Total Protein 6.8 g/dL (6.4-8.2); Triglyceride 78 mg/dL (<150)
== END 2024-12-18 02:07 | disposition home or self-care (01) ==
LOC: LOS 02:07
PROVIDERS: PCP Nurse Practitioner Family; Visit Provider Nurse Practitioner Family
DX: E78.2 Mixed hyperlipidemia (principal); Z23 Encounter for immunization
CPT/HCPCS: 36415; 80053; 80061

== ENCOUNTER 2024-12-25 14:53 | Emergency (ER) | payer MEDICARE, SELFPAY ==
[2024-12-25 14:56] VITALS: BP 175/92; PULSE 98; RESP 24; TEMP 36.2; O2SAT 98
--- NOTE | 2024-12-25 15:12 | ED.GENADUL_ITS ---
Discharge Plan Disposition Patient Disposition: Home Condition: Stable Discharge Details Clinical Impression: Knee pain, right Primary Care Provider: Gume Byers ED Provider: Holger Roberto Home Meds and New Rx's Prescriptions: Continued cholecalciferol (vitamin D3) 25 mcg (1,000 unit) tablet 2,000 unit PO DAILY loratadine 10 mg tablet 10 mg PO DAILY nitroglycerin 0.4 mg tablet, sublingual 0.4 mg sublingual Q5-15M PRN (Reason: chest pain) Qty: 30 8RF Rx Instructions: do not exceed 3 doses per episode mupirocin 2 % ointment 1 applic topical BID Qty: 50 0RF atenolol 25 mg tablet See Rx Instructions .ROUTE .COMPLEX Qty: 90 3RF Dose Instruction: TAKE 1 TABLET BY MOUTH DAILY Rx Instructions: TAKE 1 TABLET BY MOUTH DAILY trolamine salicylate 10 % cream 1 applic topical BID PRN (Reason: muscle pain) Qty: 100 0RF protein shake See Rx Instructions .ROUTE .COMPLEX Rx Instructions: Drinks 1 Protein Shake Daily; aspirin [Adult Aspirin Regimen] 81 mg tablet,delayed release (DR/EC) 81 mg PO DAILY Qty: 1 0RF fluticasone propionate [Flonase Allergy Relief] 50 mcg/actuation spray,suspension 1 spray intranasal BID Qty: 16 0RF Rx Instructions: administer into each nostril calcium carbonate-vitamin D3 [Caltrate with Vitamin D3] 1 EACH tablet 1 ea PO DAILY Emergen-C 1,000 MG powder effervescent in packet 1,000 mg PO DAILY [id number] serr [Osteo Bi-Flex (5-Loxin)] 1 EACH tablet 1 tab PO DAILY ketoconazole 2 % cream See Rx Instructions .ROUTE .COMPLEX Qty: 60 0RF Dose Instruction: APPLY TOPICALLY TO TOENAILS TWICE DAILY FOR 3 MONTHS Rx Instructions: APPLY TOPICALLY TO TOENAILS TWICE DAILY FOR 3 MONTHS omeprazole 20 mg capsule,delayed release(DR/EC) 20 mg PO DAILY Qty: 90 4RF lisinopril 10 mg tablet 10 mg PO DAILY Qty: 90 4RF hydrochlorothiazide 12.5 mg capsule 12.5 mg PO DAILY Qty: 90 4RF atorvastatin 20 mg tablet See Rx Instructions .ROUTE .COMPLEX Qty: 90 3RF Dose Instruction: TAKE 1 TABLET BY MOUTH IN THE EVENING Rx Instructions: TAKE 1 TABLET BY MOUTH IN THE EVENING acetaminophen [Tylenol Extra Strength] 500 mg Tablet 1,000 mg PO Q4H PRN Discharge Instructions Additional Instructions: You can take 1000 mg of acetaminophen every 6 hours as needed, do not exceed 3000 mg in a 24-hour period. You can take an occasional dose of 600 mg of ibuprofen. You can also try topical diclofenac. Call your primary care provider's office to arrange for follow-up appointment and discuss having an MRI. They may be able to order this before you follow-up with them. If you feel more ill or have new symptoms such as high fevers return to the emergency department for reevaluation HPI General Date/Time Provider Initiated Documentation: 12/25/24 14:58 . Limitations to Documentation: no limitations . Information obtained by: patient . History of Present Illness 84 year old F presents to the emergency department with the chief complaint of right knee pain, described as moderate, Quality is described as aching, and is localized to the right and lower extremity. Patient started experiencing this month(s) (3) and it has been intermittent. No relieving factors improve symptom(s), No exacerbating factors reported . Patient notes no other symptoms.. Patient did receive the following treatments prior to arrival, NSAID Related Data Home Medications ?Medication ?Instructions ?Recorded ?Confirmed calcium 600 mg (as 1 ea PO DAILY 11/23/12 12/25/24 carbonate)-vitamin D3 20 mcg (800 unit) tablet (Caltrate with Vitamin D3) ascorbic acid 1,000 1,000 mg PO DAILY 11/02/17 12/25/24 im-[id number]-[id number] powder effervescent pack (Emergen-C) glucosamine [id number] 1 tab PO DAILY 11/02/17 12/25/24 yinka 1,500 mg-400 unit-100 mg tablet (Osteo Bi-Flex (5-Loxin)) acetaminophen 500 mg tablet 1,000 mg PO Q4H PRN 06/20/19 12/25/24 (Tylenol Extra Strength) protein shake See Rx Instructions .Route .COMPLEX 11/17/20 12/25/24 cholecalciferol (vitamin D3) 25 2,000 unit PO DAILY 01/12/22 12/25/24 mcg (1,000 unit) tablet aspirin 81 mg tablet,delayed 81 mg PO DAILY #1 tab 03/24/22 12/25/24 release (Adult Aspirin Regimen) loratadine 10 mg tablet 10 mg PO DAILY 07/21/22 12/25/24 ketoconazole 2 % topical cream See Rx Instructions .Route 08/01/23 12/25/24 .COMPLEX #60 grams mupirocin 2 % topical ointment 1 applic topical BID #50 grams 09/22/23 12/25/24 nitroglycerin 0.4 mg sublingual 0.4 mg sublingual Q5-15M PRN chest 11/07/23 12/25/24 tablet pain #30 tabs fluticasone propionate 50 1 spray intranasal BID #16 grams 06/18/24 12/25/24 mcg/actuation nasal spray,suspension (Flonase Allergy Relief) omeprazole 20 mg capsule,delayed 20 mg PO DAILY #90 tab-caps 08/07/24 12/25/24 release trolamine salicylate 10 % topical 1 applic topical BID PRN muscle 09/07/24 12/25/24 cream pain #100 grams lisinopril 10 mg tablet 10 mg PO DAILY #90 tabs 10/02/24 12/25/24 hydrochlorothiazide 12.5 mg capsule 12.5 mg PO DAILY #90 caps 10/05/24 12/25/24 atorvastatin 20 mg tablet See Rx Instructions .Route 11/28/24 12/25/24 .COMPLEX #90 tabs atenolol 25 mg tablet See Rx Instructions .Route 12/14/24 12/25/24 .COMPLEX #90 tabs Previous Rx's ?Medication ?Instructions ?Recorded aspirin 81 mg tablet,delayed 81 mg PO DAILY #1 tab 03/24/22 release (Adult Aspirin Regimen) ketoconazole 2 % topical cream See Rx Instructions .Route 08/01/23 .COMPLEX #60 grams mupirocin 2 % topical ointment 1 applic topical BID #50 grams 09/22/23 nitroglycerin 0.4 mg sublingual 0.4 mg sublingual Q5-15M PRN chest 11/07/23 tablet pain #30 tabs fluticasone propionate 50 1 spray intranasal BID #16 grams 06/18/24 mcg/actuation nasal spray,suspension (Flonase Allergy Relief) omeprazole 20 mg capsule,delayed 20 mg PO DAILY #90 tab-caps 08/07/24 release trolamine salicylate 10 % topical 1 applic topical BID PRN muscle 09/07/24 cream pain #100 grams lisinopril 10 mg tablet 10 mg PO DAILY #90 tabs 10/02/24 hydrochlorothiazide 12.5 mg capsule 12.5 mg PO DAILY #90 caps 10/05/24 atorvastatin 20 mg tablet See Rx Instructions .Route 11/28/24 .COMPLEX #90 tabs atenolol 25 mg tablet See Rx Instructions .Route 12/14/24 .COMPLEX #90 tabs Allergies Allergy/AdvReac Type Severity Reaction Status Date / Time hydrochlorothiazide AdvReac Intermediate Skin Rash Verified 12/25/24 15:01 oxycodone HCl (From Percocet) AdvReac Intermediate GI, Verified 12/25/24 15:01 Headache, Nausea codeine AdvReac Mild Upset Verified 12/25/24 15:01 Stomach General Stated Complaint: Orthopedic REBA: 4 Review of Systems All systems reviewed & are unremarkable except as noted in HPI and below Constitutional Constitutional: Denies chills, Denies fever(s) and Denies weakness Cardiovascular Cardiovascular: Denies chest pain and Denies dyspnea Respiratory Respiratory: Denies cough and Denies dyspnea Gastrointestinal Gastrointestinal: Denies abdominal pain, Denies nausea and Denies vomiting Musculoskeletal Musculoskeletal: Reports arthralgias Neurologic Neurologic: Denies weakness Psychiatric Psychiatric: Denies depression Exam Const General: no acute distress Orientation: alert HENMI Head: normal to inspection Ears: external ears normal General nose exam: external nose normal Mouth: moist mucous membranes Eyes General: appearance normal, both eyes and all related structures Neck Neck: normal visual inspection Resp Effort & Inspection: normal respiratory effort and able to speak in complete sentences Cardio Rate: regular rate Skin General skin exam: no rashes or lesions noted Neuro General: patient alert and patient oriented x3 Extrem General: full ROM and capillary refill normal Psych Mental Status: mental status grossly normal Course Vital Signs Vital signs: Vital Signs Temperature 36.2 C L 12/25/24 14:56 Pulse 98 H 12/25/24 14:56 Respiratory Rate 12/25/24 14:56 Blood Pressure 175/92 H 12/25/24 14:56 Pulse Oximetry 98 12/25/24 14:56 Temperature 36.2 C L 12/25/24 14:56 Pulse 98 H 12/25/24 14:56 Respiratory Rate 12/25/24 14:56 Blood Pressure 175/92 H 12/25/24 14:56 Blood Pressure Position Sitting 12/25/24 14:56 Pulse Oximetry 98 12/25/24 14:56 Oxygen Delivery Method Room Air 12/25/24 14:56 Oxygen Flow Rate 0 12/25/24 14:56 Medical Decision Making 84-year-old female who comes in with several months of intermittent right knee pain, who states that it increased past 2 days after she twisted on Tuesday. She did not fall or sustain other injuries on Tuesday. She says she has pain with ambulation. She took Tylenol and ibuprofen today. On my exam she is in no distress and is actually bearing weight and moving around the room well. She h as lateral knee tenderness without palpable or visible deformity. She is fully able to range the knee. She has intact distal sensation and pulses. I suspect arthritis versus ligamentous versus meniscus injury, will obtain x-ray to evaluate for arthritis and less likely fracture given she did not have a fall. Advised that she will likely need to have an MRI with this is not usually done in the emergency department. X-ray shows degenerative changes, patient is stable. She has no warmth or swelling of the knee on exam so I doubt septic joint. I advise she should call her PCPs office and discuss having an MRI as an outpatient. She is stable for discharge and will follow-up with her PCP, return precautions given Differential Diagnosis Differential Diagnosis: Arthritis, tendinitis, meniscus injury Quality:SDOH Health Related Social Needs: No Data to Display PFSH All Active Problems (Updated 12/25/24 @ 16:07 by Holger Roberto MD) Knee pain, right (Acute) Varicose veins of lower extremity (Acute) Cardiomegaly (Acute) Tinnitus (Acute) Trigger finger, left ring finger (Acute) Trigger finger, left middle finger (Acute) Hammertoe of right foot (Acute) Plantar fasciitis (Acute) Degenerative joint disease, right, foot (Acute) Pes planus of right foot (Acute) Onychomycosis (Acute) Venous (peripheral) insufficiency (Acute) Plantar fasciitis, right (Acute) Posterior tibial tendon dysfunction (PTTD) of right lower extremity (Acute) Pain in joint, foot, left (Acute) Lichen sclerosus (Acute) Renal cyst (Acute) Multiple bilateral peripelvic renal cysts-. Ultrasound 2015 Lung granuloma (Acute) 2022-incidental finding with chest CT-5 mm calcified granuloma Non-ST elevation PA (NSTEMI) (Acute) 02/2022[place] [facility] [place] cardiac [place]ization showed nonobstructive cardiac disease, preserved heart function, treated with medical therapy Hyperlipidemia (Chronic) Essential hypertension (Chronic 10/02/13) Gordon's esophagus (Acute) EGD 02/05/13- and in 2016 [facility]I egd 12/31, 2016,[address] [facility] Medical History (Updated 12/25/24 @ 16:07 by Holger Roberto MD) Sunburn Hypokalemia Acute dehydration Weakness Diarrhea Cellulitis, abdominal wall Yeast vaginitis Left medial knee pain Actinic keratosis Closed fracture of proximal end of right humerus (06/11/19) History of postoperative nausea and vomiting Vitiligo Rosacea Traumatic closed displaced fracture of proximal end of left humerus with routine healing (01/03/18) 01/03/18 Osteopenia Lichen planus on rt [place] Hiatal hernia Family history of colon cancer (02/05/10) father Bilateral low back pain without sciatica (05/13/16) Spondylosis of lumbar region without myelopathy or radiculopathy Surgical History S/P colonoscopic polypectomy (~05/2020) Dr. Nemesio [place] ? F/U History of Mike fundoplication Ligation of fallopian tube Medial Branch Block 10/12/16; [facility] 10/12/16 Finger Surgery CYST REMOVAL;DR. YEPEZ; 03/17/17 Endoscopy 02/15/17 [facility] EGD - IV Sedation (02/15/17) Colonoscopy - MAC (~01/2014) Cholecystectomy (~10/2001) BIOPSY (02/05/14) DISTAL ESOPHAGUS BX Appendectomy no date given Family History Mother , age 90 Diabetes Essential hypertension Heart disease Hyperlipidemia Breast cancer Father , age 78 Diabetes Essential hypertension Hyperlipidemia Lung cancer Brother Prostate cancer Hyperlipidemia Essential hypertension Asthma Sister , 59 Colon cancer Sister Diabetes Hyperlipidemia Sister No problems noted. Sister Asthma Sister Depression Brother Heart disease Brother Essential hypertension Hyperlipidemia Bladder cancer Son No problems noted. Daughter , 42 Diabetes Daughter No problems noted. Daughter No problems noted. Maternal Grandfather No problems noted. Paternal Grandfather No problems noted. Maternal Grandmother No problems noted. Paternal Grandmother No problems noted. Social History (Updated 12/17/24 @ 14:48 by Bria Garcia) Smoking/Tobacco Use Status: Never Second Hand Exposure: Yes Smoking risk assessment performed?: Yes Alcohol Intake: former Drug use: Never Counseling given: No Counseling provided: none Caregiver/Support person: No Household members: none Housing: apartment Do you need help understanding health information?: Never Pets and animals: No Sexually active: No Do you think of yourself as: straight/heterosexual Current gender identity: female What is your relationship status?: How often do you talk on the phone with friends or family?: three or more times per week How often do you get together with friends or relatives?: three or more times per week How often do you attend shinto or restoration services?: decline to answer Do you belong to any clubs or organized social groups?: no Panel score (0-1 are the most socially isolated patients): 1 What type of physical activity do you participate in: decline to answer Duration: 15-30 minutes/day Frequency: 5-6 times per week Chloe/Scientologist: Jew Special chloe needs: No Seatbelt use: always Helmet use: No Drive intox or ride w/intox non cdl driver: No Do you feel safe at home: Yes Do you feel safe in your relationship?: Yes Female Reproductive History Menstrual Age of Menarche: 16 History History 4 Para 4 Hx # Term Pregnancies 4 Multiple births Hx # Pregnancies Ectopic pregnancies AB induced Hx Number of Living Children 4 AB spontaneous Past Pregnancies Del. Date GA/Weeks # Preg Succ Route Wgt Sex Labor Lgth Anesth esia Location Prov Complic 04/16/1961 vaginal Female 12/03/1963 vaginal Male 12/26/1968 vaginal Female 07/19/71 vaginal Female
--- NOTE | 2024-12-25 15:35 | DI.RAD_ITS ---
Exam(s) XR KNEE RT 3V AP,LAT,UNIQUE EXAM: XR KNEE RT 3V AP,LAT,UNIQUE CLINICAL HISTORY: pain from twisting it 2 days ago. TECHNIQUE: 2D digital imaging was performed. Three views. COMPARISON: CR XR KNEE RT 4V AP,LAT,UNIQUE,PAT from 09/07/2024 FINDINGS: BONES: No acute fracture is present. No bony destructive lesion is seen. JOINTS: The joint spaces are maintained. Minimal periarticular spurring. The knee is normally align ed. No joint effusion is seen. SOFT TISSUE: Normal. IMPRESSION: Minimal degenerative changes. DATA REPOSITORY: RADIATION DOSE DELIVERED:
[2024-12-25] MEDS: Diclofenac 1% Gel 100 GM TUBE TP (16:37)
[2024-12-25 16:38] VITALS: BP 178/74; PULSE 68; RESP 14; O2SAT 97
--- NOTE | 2025-01-14 10:13 | NUR.NOTE ---
Accessed Pt chart to print discharge summary for Surgi [facility]
--- NOTE | 2025-01-16 13:07 | NUR.NOTE ---
Accessed patient chart to print provider note to be faxed to [facility] [place] for billing purposes. Nursing Note:
== END 2024-12-25 16:43 | disposition home or self-care (01) ==
PROVIDERS: Emergency Provider Emergency Medicine; PCP Nurse Practitioner Family
DX: M25.561 Pain in right knee (principal); I25.2 Old myocardial infarction; I10 Essential (primary) hypertension; E78.5 Hyperlipidemia, unspecified
CPT/HCPCS: 73562; 99283

== ENCOUNTER 2025-01-16 00:46 | Outpatient (CLI) | payer MEDICARE, SELFPAY ==
--- NOTE | 2025-01-16 07:00 | DI.MRI_ITS ---
Exam(s) MR LOWER JOINT RT WO EXAM: MR LOWER JOINT RT WO CLINICAL HISTORY: Worsening right knee pain,M25.561. TECHNIQUE: Multiplanar multisequence MRI was performed. COMPARISON: MR MRI R LOWER JOINT WO CONT from 04/13/2013 CR XR KNEE RT 3V AP,LAT,UNIQUE from 12/25/2024 FINDINGS: BONES: There is no fracture or contusion pattern. JOINTS: There is thinning of the articular cartilage at the patellofemoral joint laterally. Mild sub chondral edema is also present. There also degenerative changes seen in the lateral femoral tibial j oint with thinning of the articular cartilage, osteophytes and subchondral edema. There is a small a mount of fluid in the joint space. TENDONS: Extensor mechanism: Unremarkable. Medial retinaculum: Unremarkable. Lateral retinaculum: Unremarkable. Popliteus: Unremarkable. MUSCLES: Within normal limits for the patient's age. MENISCI: The medial meniscus is unremarkable. There is a tear of the body of the lateral meniscus. SOFT TISSUES: There is edema seen in the soft tissues around the knee. There is a popliteal cyst pre sent. This cyst measures 5.3 cm cranio caudally. LIGAMENTS: Anterior Cruciate: Unremarkable. Posterior Cruciate: Unremarkable. Medial Collateral:Unremarkable. Lateral Collateral: Unremarkable. OTHER: IMPRESSION: 1. Tear of the body of the lateral meniscus. 2. Degenerative changes seen in the left knee particularly involving the lateral femoral tibial joint . 3. No evidence of a ligament tear. 4. 5.3 cm popliteal cyst. DATA REPOSITORY:
== END 2025-01-16 01:06 ==
LOC: DI 00:46
PROVIDERS: PCP Nurse Practitioner Family; Visit Provider Nurse Practitioner Family
DX: M25.561 Pain in right knee (principal); S83.281A Other tear of lateral meniscus, current injury, right knee, initial encounter; X58.XXXA Exposure to other specified factors, initial encounter
CPT/HCPCS: 73721

== ENCOUNTER → 2025-04-25 14:18 | Outpatient (BNVA) | payer MEDICARE, SELFPAY | PROVIDERS: PCP Nurse Practitioner Family; Referring Provider Nurse Practitioner Family; Visit Provider Student in an Organized Health Care Education/Training Program | DX: M65.332 Trigger finger, left middle finger (principal); S63.653A Sprain of metacarpophalangeal joint of left middle finger, initial encounter; M17.11 Unilateral primary osteoarthritis, right knee | CPT/HCPCS: 99213 ==

== ENCOUNTER → 2025-05-15 14:31 | Outpatient (BNVA) | payer MEDICARE, SELFPAY | PROVIDERS: PCP Nurse Practitioner Family; Referring Provider Nurse Practitioner Family; Visit Provider Registered Nurse | DX: I21.4 Non-ST elevation (NSTEMI) myocardial infarction (principal); I10 Essential (primary) hypertension | CPT/HCPCS: 99214 ==

== ENCOUNTER 2025-07-12 13:00 | Outpatient (REF) | payer MEDICARE, SELFPAY ==
[2025-07-12 14:38] LABS: Glucose Negative (Negative)
[2025-07-12 14:47] LABS: C & S Indicated? No; RBC Negative HPF (0-2); WBC 0-2 HPF (0-5)
== END 2025-07-12 13:01 | disposition home or self-care (01) ==
LOC: LBN 13:00
PROVIDERS: PCP Nurse Practitioner Family; Visit Provider Nurse Practitioner Family
DX: R30.0 Dysuria (principal); R35.0 Frequency of micturition
CPT/HCPCS: 81003; 81015; 87480; 87510; 87660

== ENCOUNTER → 2025-09-04 14:33 | Outpatient (CLI) | payer MEDICARE, SELFPAY ==
--- NOTE | 2025-09-04 18:08 | DI.RAD_ITS ---
Exam(s) XR SHOULDER RT COMPLETE 2+V EXAM: XR SHOULDER RT COMPLETE 2+V CLINICAL HISTORY: shoulder pain, right. M25. 511. TECHNIQUE: 2D digital imaging was performed of the right shoulder. Four images were obtained. AP, Grashey, Y-view and axillary views were obtained. COMPARISON: CR XR SHOULDER RT COMPLETE 2+V from 03/17/2021 CR,XR XR PORTABLE CHEST AP from 12/26/2022 FINDINGS: BONES: No acute fracture is present. No bony destructive lesion is seen. The bones are osteopenic. JOINTS: No dislocation present. There again seen postsurgical changes of a right reverse total shoulder arthroplasty. There are no suspicious lucencies around the orthopedic hardware at this time. There are mild degenerative changes seen at the acromioclavicular joint. SOFT TISSUE: The heart appears to be enlarged. There is mild pulmonary venous congestion. IMPRESSION: 1. Stable right reverse total shoulder arthroplasty. 2. Cardiomegaly and mild pulmonary venous congestion. 3. There is no acute fracture or dislocation. 4. The preliminary [facility] report was reviewed. DATA REPOSITORY: RADIATION DOSE DELIVERED:
--- NOTE | 2025-09-04 19:55 | DI.[facility]_ITS ---
PROCEDURE INFORMATION: Exam: XR Right Shoulder Exam date and time: 09/04/2025 6:16 PM Age: 85 years old Clinical indication: Pain; Right; Prior surgery; Surgery date: 6+ months; Surgery type: Total shoulder replacement 6 years ago per patient TECHNIQUE: Imaging protocol: Radiologic exam of the right shoulder. Views: 2 or more views. COMPARISON: CR XR SHOULDER RT COMPLETE 2+V 17/03/2021 10:33 FINDINGS: Bones/joints: Multilevel degenerative changes of the spine. Reverse shoulder prosthesis in anatomic alignment, similar to prior study. The visualized ribs are intact. Lungs: Prominent central pulmonary vasculature. Heart/Mediastinum: Cardiomegaly. Vasculature: Atherosclerotic disease. Soft tissues: Unremarkable. IMPRESSION: 1. Total right shoulder prosthesis. 2. Cardiomegaly. Pulmonary vascular congestion. Dictated and Authenticated by: Ml Thurston MD. Orderin Tere Mason MD
== END ==
LOC: DI 09-25 14:33
PROVIDERS: PCP Nurse Practitioner Family; Visit Provider Physician Assistant
DX: Z47.1 Aftercare following joint replacement surgery (principal); Z96.611 Presence of right artificial shoulder joint; I51.7 Cardiomegaly
CPT/HCPCS: 73030

== ENCOUNTER 2025-09-13 19:29 | Emergency (ER) | payer MEDICARE, SELFPAY ==
[2025-09-13] VITALS (17 sets, daily range): BP systolic 142–200; BP diastolic 68–99; PULSE 59–80; RESP 12–21; TEMP 36.6; O2SAT 93–100
--- NOTE | 2025-09-13 19:30 | RT.EKG_ITS ---
APPROVED REPORT Exam: Resting ECG Reason for Exam: syncope Patient Location: E HR:76 bpm ECG Measurements Heart Rate 76 AXIS DC 166 P 21 QRSd 98 QRS -8 QT 387 T -10 QTc 434 Conclusion Sinus rhythm...normal P axis, V-rate 60- 99 Probable left atrial enlargement...P >50mS, <-0.10mV V1 Nonspecific T abnormalities, inferior leads...T <-0.10mV, II III aVF
--- NOTE | 2025-09-13 19:48 | W.ED.GENAD ---
Discharge Plan Disposition Patient Disposition: Home Condition: Stable Discharge Details Clinical Impression: Lightheadedness Primary Care Provider: Gume Byers ED Provider: Holger Roberto Home Meds and New Rx's Prescriptions: Continued cholecalciferol (vitamin D3) 25 mcg (1,000 unit) tablet 2,000 unit PO DAILY loratadine 10 mg tablet 10 mg PO DAILY atenolol 25 mg tablet See Rx Instructions .ROUTE .COMPLEX Qty: 90 3RF Dose Instruction: TAKE 1 TABLET BY MOUTH DAILY Rx Instructions: TAKE 1 TABLET BY MOUTH DAILY nitroglycerin 0.4 mg tablet, sublingual 0.4 mg sublingual Q5-15M PRN (Reason: chest pain) Qty: 30 8RF Rx Instructions: do not exceed 3 doses per episode omeprazole 20 mg capsule,delayed release(DR/EC) 20 mg PO DAILY Qty: 90 4RF aspirin [Adult Aspirin Regimen] 81 mg tablet,delayed release (DR/EC) 81 mg PO DAILY Qty: 1 0RF calcium carbonate-vitamin D3 [Caltrate with Vitamin D3] 1 EACH tablet 1 ea PO DAILY Emergen-C 1,000 MG powder effervescent in packet 1,000 mg PO DAILY [id number] serr [Osteo Bi-Flex (5-Loxin)] 1 EACH tablet 1 tab PO DAILY lisinopril 10 mg tablet 10 mg PO DAILY Qty: 90 4RF atorvastatin 20 mg tablet See Rx Instructions .ROUTE .COMPLEX Qty: 90 3RF Dose Instruction: TAKE 1 TABLET BY MOUTH IN THE EVENING Rx Instructions: TAKE 1 TABLET BY MOUTH IN THE EVENING acetaminophen [Tylenol Extra Strength] 500 mg Tablet 1,000 mg PO Q4H PRN Discharge Instructions Additional Instructions: Your blood work and x-ray did not show any concerning findings at this time. I would recommend trying to stay hydrated as best he can. Follow-up with your primary care provider this week. If you feel more ill or have new symptoms such as severe chest pain or difficulty breathing return to the emergency department for reevaluation. Stand Alone Forms: Portal Information HPI General Date/Time Provider Initiated Documentation: 09/13/25 19:34. Limitations to Documentation: no limitations. Information obtained by: patient. History of Present Illness 85 year old F presents to the emergency department with the chief complaint of lightheaded, described as moderate, Patient started experiencing this hour(s) (1) and it has been constant. No relieving factors improve symptom(s), No exacerbating factors reported . Patient notes denies fever/chills and shortness of breath. Patient did receive the following treatments prior to arrival, none Related Data Home Medications ?Medication ?Instructions ?Recorded ?Confirmed calcium 600 mg (as 1 ea PO DAILY 11/23/12 09/13/25 carbonate)-vitamin D3 20 mcg (800 unit) tablet (Caltrate with Vitamin D3) ascorbic acid 1,000 1,000 mg PO DAILY 11/02/17 09/13/25 [id number]-plqienar powder effervescent pack (Emergen-C) glucosamine [id number] 1 tab PO DAILY 11/02/17 09/13/25 yinka 1,500 mg-400 unit-100 mg tablet (Osteo Bi-Flex (5-Loxin)) acetaminophen 500 mg tablet 1,000 mg PO Q4H PRN 06/20/19 09/13/25 (Tylenol Extra Strength) cholecalciferol (vitamin D3) 25 2,000 unit PO DAILY 01/12/22 09/13/25 mcg (1,000 unit) tablet aspirin 81 mg tablet,delayed 81 mg PO DAILY #1 tab 03/24/22 09/13/25 release (Adult Aspirin Regimen) loratadine 10 mg tablet 10 mg PO DAILY 07/21/22 09/13/25 lisinopril 10 mg tablet 10 mg PO DAILY #90 tabs 10/02/24 09/13/25 atorvastatin 20 mg tablet See Rx Instructions .Route 11/28/24 09/13/25 .COMPLEX #90 tabs atenolol 25 mg tablet See Rx Instructions .Route 12/14/24 09/13/25 .COMPLEX #90 tabs nitroglycerin 0.4 mg sublingual 0.4 mg sublingual Q5-15M PRN chest 06/18/25 09/13/25 tablet pain #30 tabs omeprazole 20 mg capsule,delayed 20 mg PO DAILY #90 tab-caps 06/18/25 09/13/25 release Previous Rx's ?Medication ?Instructions ?Recorded aspirin 81 mg tablet,delayed 81 mg PO DAILY #1 tab 03/24/22 release (Adult Aspirin Regimen) lisinopril 10 mg tablet 10 mg PO DAILY #90 tabs 10/02/24 atorvastatin 20 mg tablet See Rx Instructions .Route 11/28/24 .COMPLEX #90 tabs atenolol 25 mg tablet See Rx Instructions .Route 12/14/24 .COMPLEX #90 tabs nitroglycerin 0.4 mg sublingual 0.4 mg sublingual Q5-15M PRN chest 06/18/25 tablet pain #30 tabs omeprazole 20 mg capsule,delayed 20 mg PO DAILY #90 tab-caps 06/18/25 release Allergies Allergy/AdvReac Type Severity Reaction Status Date / Time hydrochlorothiazide AdvReac Intermediate Skin Rash Verified 09/13/25 19:41 oxycodone HCl (From Percocet) AdvReac Intermediate GI, Verified 09/13/25 19:41 Headache, Nausea codeine AdvReac Mild Upset Verified 09/13/25 19:41 Stomach General Stated Complaint: [id number] REBA: 3 Review of Systems All systems reviewed & are unremarkable except as noted in HPI and below Constitutional Constitutional: Denies chills and Denies fever(s) ENT Ears, Nose, Mouth, and Throat: Denies change in voice Cardiovascular Cardiovascular: Denies chest pain, Denies dyspnea and Reports other (lightheaded) Respiratory Respiratory: Denies cough and Denies dyspnea Gastrointestinal Gastrointestinal: Denies abdominal pain, Denies nausea and Denies vomiting Exam Const General: no acute distress Orientation: alert HENDC Head: normal to inspection Ears: external ears normal General nose exam: external nose normal Mouth: moist mucous membranes Eyes General: appearance normal, both eyes and all related structures Neck Neck: normal visual inspection Resp Effort & Inspection: normal respiratory effort and able to speak in complete sentences Auscultation: clear to auscultation bilaterally Cardio Jugular venous pressure: no JVD Rate: regular rate GI Palpation: soft and nontender Skin General skin exam: no rashes or lesions noted Neuro General: patient alert and patient oriented x3 Extrem General: normal to inspection Psych Mental Status: mental status grossly normal Course Vital Signs Vital signs: Vital Signs Temperature 36.6 C 09/13/25 19:37 Pulse 80 09/13/25 19:37 Respiratory Rate 18 09/13/25 19:37 Blood Pressure 179/82 H 09/13/25 19:37 Pulse Oximetry 96 09/13/25 19:37 Temperature 36.6 C 09/13/25 19:37 Temperature Source Oral 09/13/25 19:37 Pulse 80 09/13/25 19:37 Respiratory Rate 18 09/13/25 19:37 Blood Pressure 179/82 H 09/13/25 19:37 Pulse Oximetry 96 09/13/25 19:37 Pain Level 0 09/13/25 19:37 Medical Decision Making 85-year-old female with a history of coronary artery disease, hypertension, comes in after she states she was at her house sitting on the couch when she got up to walk to her room when she got lightheaded. She denies any chest pain but states she felt her heart was beating hard. She denies loss of consciousness, fevers, chills, difficulty breathing. She is well-appearing speaking in full sentences. She has clear lung sounds, no JVD or leg swelling. She states she still feels lightheaded and on the monitor is in sinus rhythm so I doubt arrhythmia. Given her complaints we will check a CBC CMP and troponins. Also obtain a chest x-ray. She has no tachycardia or hypoxia or evidence of DVT on exam so I doubt PE. She has no tearing back pain and has equal peripheral pulses so I doubt dissection. Labs unremarkable, pending radiology read of the x-ray, I do not see any concerning findings on the x-ray. She is stable and feels well Second troponin negative, UA does have some white cells but she denies any urinary symptoms so we will defer antibiotics at this time. Given reassuring workup I feel she is stable for discharge and can follow-up with her PCP, return precautions given. Differential Diagnosis Differential Diagnosis: orthostasis, acs, electrolyte abnormality Medical Records Medical records reviewed: Yes I reviewed the patient's medical records. Lab Data Lab results reviewed: Yes I reviewed the patient's lab results. 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 Ultrasound 2015 Lung granuloma (Acute) 2021-incidental finding with chest CT-5 mm calcified granuloma Non-ST elevation [place] (NSTEMI) (Acute) 02/2022-[place] at [facility] [place], cardiac catheterization showed nonobstructive cardiac disease, preserved heart function, treated with medical therapy Hyperlipidemia (Chronic) Essential hypertension (Chronic 10/02/13) Gordon's esophagus (Acute) EGD 02/05/13- and in 2016 [facility]. [facility]ORI egd 12/31, 2016,[address] [facility] Medical History Sunburn Hypokalemia Acute dehydration Weakness Diarrhea Cellulitis, abdominal wall Yeast vaginitis Left medial knee pain Actinic keratosis Closed fracture of proximal end of right humerus (06/11/19) History of postoperative nausea and vomiting Vitiligo Rosacea Traumatic closed displaced fracture of proximal end of left humerus with routine healing (01/03/18) 01/03/18 Osteopenia Lichen planus on rt [place] Hiatal hernia Family history of colon cancer (02/05/10) father Bilateral low back pain without sciatica (05/13/16) Spondylosis of lumbar region without myelopathy or radiculopathy Surgical History S/P colonoscopic polypectomy (~05/2020) Dr. Nemesio [facility]su[facility] [place] ? F/U History of Mike fundoplication Ligation of fallopian tube Medial Branch Block 10/12/16; PA[facility] 10/12/16 Finger Surgery CYST REMOVAL;DR. YEPEZ; 03/17/17 Endoscopy 02/15/17 [facility] EGD - IV Sedation (02/15/17) Colonoscopy - MAC (~01/2014) Cholecystectomy (~10/2001) BIOPSY (02/05/14) DISTAL ESOPHAGUS BX Appendectomy no date given Family History Mother , age 90 Diabetes Essential hypertension Heart disease Hyperlipidemia Breast cancer Father , age 78 Diabetes Essential hypertension Hyperlipidemia Lung cancer Brother Prostate cancer Hyperlipidemia Essential hypertension Asthma Sister , 59 Colon cancer Sister Diabetes Hyperlipidemia Sister No problems noted. Sister Asthma Sister Depression Brother Heart disease Brother Essential hypertension Hyperlipidemia Bladder cancer Son No problems noted. Daughter , 42 Diabetes Daughter No problems noted. Daughter No problems noted. Maternal Grandfather No problems noted. Paternal Grandfather No problems noted. Maternal Grandmother No problems noted. Paternal Grandmother No problems noted. Social History Smoking/Tobacco Use Status: Never Second Hand Exposure: Yes Smoking risk assessment performed?: Yes Alcohol Intake: former Drug use: Never Counseling given: No Counseling provided: none Caregiver/Support person: No Household members: none Housing: apartment Do you need help understanding health information?: Never Pets and animals: No Sexually active: No Do you think of yourself as: straight/heterosexual Current gender identity: female What is your relationship status?: How often do you talk on the phone with friends or family?: three or more times per week How often do you get together with friends or relatives?: three or more times per week How often do you attend judaism or congregation services?: decline to answer Do you belong to any clubs or organized social groups?: no Panel score (0-1 are the most socially isolated patients): 1 What type of physical activity do you participate in: decline to answer Duration: 15-30 minutes/day Frequency: 5-6 times per week Chloe/Restorationist: Religious Special chloe needs: No Seatbelt use: always Helmet use: No Drive intox or ride w/intox milk pickup driver: No Do you feel safe at home: Yes Do you feel safe in your relationship?: Yes Female Reproductive History Menstrual Age of Menarche: 16 History History 4 Para 4 Hx # Term Pregnancies 4 Multiple births Hx # Pregnancies Ectopic pregnancies AB induced Hx Number of Living Children 4 AB spontaneous Past Pregnancies Del. Date GA/Weeks # Preg Succ Route Wgt Sex Labor Lgth Anesthesia Location [facility] 04/16/1961 vaginal Female 12/03/1963 vaginal Male 12/26/1968 vaginal Female 07/19/71 vaginal Female
[2025-09-13 20:31] LABS: Abs Immature Grans 0.01 10^3/uL (0.0-0.06); HCT 41.6 % (36.0-46.0); HGB 13.5 g/dL (11.2-15.7); Immature Grans % 0.2 %; MCH 28.6 pg (27.0-33.0); MCHC 32.5 % (32.0-36.0); MCV 88 fL (80-95); MPV 10.7 fL (8.0-11.0); Platelet Count 176 10^3/uL (130-400); RBC 4.72 10^6/uL (3.93-5.22); RDW 13.8 % (11.7-14.6); RDW-SD 44.6 fL; WBC 6.24 10^3/uL (4.4-10.8)
[2025-09-13] MEDS: Normal Saline 500 ML IV (20:35)
[2025-09-13 20:49] LABS: Troponin I 3 ng/L (<35)
[2025-09-13 20:50] LABS: ALT 21 U/L (10-49); AST 25 U/L (<34); Albumin 4.1 g/dL (3.2-5.0); Alkaline Phosphatase 76 U/L (46-116); Anion Gap 9.1 mmol/L (3-11); BUN 23 mg/dL (9-23); Bilirubin, Total 0.4 mg/dL (0.2-1.2); CO2 24.9 mmol/L (20.0-31.0); Calcium 9.5 mg/dL (8.3-10.6); Chloride 106 mmol/L (98-107); Glucose 90 mg/dL (74-106); Magnesium 1.9 mg/dL (1.6-2.6); Potassium 4.3 mmol/L (3.5-5.1); Sodium 140 mmol/L (136-145); Total Protein 7.0 g/dL (5.7-8.2)
--- NOTE | 2025-09-13 21:13 | DI.RAD_ITS ---
Exam(s) XR CHEST 2V PA LATERAL EXAM: XR CHEST 2V PA LATERAL CLINICAL HISTORY: chest pain. TECHNIQUE: 2D digital imaging was performed. COMPARISON: CR XR CHEST 2V PA LATERAL from 10/03/2024 FINDINGS: 2 views: Mild cardiomegaly again noted. The mediastinum is unchanged. Right shoulder reverse prosthesis again noted and chronic fracture deformity of the left shoulder humeral head head-neck again noted. No confluent infiltrates nor pleural effusions. No pulmonary edema. IMPRESSION: No acute pulmonary findings.No significant change compared to September 2024. DATA REPOSITORY: RADIATION DOSE DELIVERED:
--- NOTE | 2025-09-13 21:57 | DI.VRAD_ITS ---
PROCEDURE INFORMATION: Exam: XR Chest Exam date and time: 09/13/2025 9:08 PM Age: 85 years old Clinical indication: Chest pressure; Prior surgery; Surgery date: 6+ months; Surgery type: Shoulder replacement; Chest pain TECHNIQUE: Imaging protocol: Radiologic exam of the chest. Views: 2 views. COMPARISON: CR XR CHEST 2V PA LATERAL 10/03/2024 12:29 PM FINDINGS: Lungs: No focal consolidation or pulmonary nodules. No pulmonary edema. Pleural spaces: Normal. Heart/Mediastinum: Normal. Vasculature: Atherosclerotic vascular disease. Bones/joints: Right reverse total shoulder arthroplasty. Multilevel thoracic spine degenerative disc space narrowing and osteophyte formation. Old healed fracture of the left proximal humerus. IMPRESSION: No acute cardiopulmonary abnormality. Dictated and Authenticated by: Cezar Cavazos MD. Orderin Felisa Wren MD
[2025-09-13 21:58] LABS: Troponin I 5 ng/L (<35)
[2025-09-13 22:06] LABS: Glucose Negative (Negative)
[2025-09-13 22:15] LABS: RBC 0-2 HPF (0-2)
== END 2025-09-13 22:11 | disposition home or self-care (01) ==
PROVIDERS: Emergency Provider Emergency Medicine; PCP Nurse Practitioner Family
DX: R42 Dizziness and giddiness (principal)
CPT/HCPCS: 36415; 80053; 93005; 96360; 99284; 71046; 81003; 81015; 83735; 84484; 85025; 93010; 99283